=== PATIENT | female | born 1960 | race Caucasian/White ===

== ENCOUNTER 2020-11-25 19:28 | Inpatient (IN) | payer OTHER, SELFPAY ==
[2020-11-25] VITALS (9 sets, daily range): BP systolic 115–189; BP diastolic 83–105; PULSE 72–96; RESP 20–28; TEMP 36.1–36.7; O2SAT 97–100; BMI 22.8
--- NOTE | ~2020-11-25 | CT_ITS ---
EXAMINATION: UNENHANCED CT THE CHEST, ABDOMEN AND PELVIS. CLINICAL INFORMATION: Fall. Chest and flank pain. Nausea and vomiting. COMPARISON: CT abdomen pelvis 12/18/2017. TECHNIQUE: Unenhanced CT the chest, abdomen pelvis with multiple coronal and sagittal reformatted images. This CT examination was performed using dose optimization techniques as appropriate, variously including the following: *Automated exposure control *Adjustment of mA and/or kV according to patient size (this includes techniques or standardized protocols for targeted exams where dose is matched to indication/reason for exam; i.e. extremities or head) *Use of iterative reconstruction technique DLP: 1965 mGy-cm FINDINGS: CT chest: Lungs are clear. No pleural thickening or pleural fluid collections are visualized. The thoracic aorta is normal in caliber. Mild scattered aortic calcific atherosclerotic plaques are visualized. The main and central pulmonary arteries are normal in caliber. Partial visualization is made of at least moderate calcific atherosclerosis in the region of the proximal left anterior descending coronary artery. The heart size is normal. No pericardial thickening or fluid collections are visualized. No mediastinal lymphadenopathy. The thyroid is partially included in the image [id number] and demonstrates no gross abnormalities. Liver: Liver is normal in size, contour and capsular configuration. No focal parenchymal lesions of the liver noted. Cholecystectomy clips are identified. No biliary duct dilatation is visualized. Pancreas: Pancreas is normal in appearance. Spleen: Normal. Adrenal glands: Normal. Kidneys: No urolithiasis. No hydronephrosis or perinephric inflammatory changes. No focal parenchymal lesions of the kidneys. Urinary bladder: Physiologically distended. Gastrointestinal system: Moderate diverticulosis of the sigmoid colon and descending colon is identified. The appendix is normal in appearance. No free intraperitoneal fluid or gas collections are visualized. Scattered pelvic phleboliths are noted. A benign-appearing calcification is present in the region of the far left lateral omentum and descending colon which may represent a chronic focus of appendicitis epiploica. This finding is unchanged compared with 12/18/2017. Abdominal wall: No hernias: Pelvic viscera: Normal uterus. No adnexal lesions identified. Skeletal structures: Mildly displaced anterior fractures of the cannulated fractures of the anterior segments of the left fifth, sixth and seventh ribs are noted. No vertebral body compression deformities are visualized. CT/CT chest wo con IMPRESSION: CT chest, abdomen and pelvis: 1. Acute, mildly displaced angulated fractures of the anterior segments of the left fifth, sixth, seventh ribs. No pneumothoraces or pleural effusions. No additional acute abnormalities visualized. Normal spleen. No free intraperitoneal fluid or gas collections. 2. Moderate colonic diverticulosis. No evidence of acute diverticulitis. 3. Status post cholecystectomy. 4. Partially visualized calcific atherosclerosis of the proximal left anterior descending coronary artery.
--- NOTE | ~2020-11-25 | CT_ITS ---
EXAMINATION: CT HEAD WITHOUT CONTRAST CT CERVICAL SPINE WITHOUT CONTRAST CLINICAL INFORMATION: Fall COMPARISON: CT head dated 10/18/2011 TECHNIQUE: Multidetector CT imaging of the head and cervical spine was performed without the use of intravenous contrast. Multiplanar reformats are reviewed. This CT examination was performed using dose optimization techniques as appropriate, variously including the following: *Automated exposure control *Adjustment of mA and/or kV according to patient size (this includes techniques or standardized protocols for targeted exams where dose is matched to indication/reason for exam; i.e. extremities or head) *Use of iterative reconstruction technique DLP: 1965 mGy-cm. FINDINGS: There is no evidence of acute intracranial hemorrhage or territorial infarction. No abnormal mass effect or midline shift is seen. Woo to white matter differentiation is well preserved. No extra-axial fluid collections are identified. The ventricles are normal in size. Bilateral gangliocapsular lacunar infarcts and mild chronic small vessel ischemic changes. The osseous structures and soft tissues are normal. The mastoid air cells and visualized portions of the paranasal sinuses are well-aerated. Atlantooccipital alignment is maintained. The vertebral bodies and posterior elements align normally. No acute fracture or subluxation. Vertebral body heights are preserved. Small endplate osteophytes present along the anterior cervical spine from C4 through C7. The paraspinal soft tissues are unremarkable. The imaged lung apices are clear CT/CT cervical spine wo con IMPRESSION: No acute intracranial pathology. No cervical spine fracture or malalignment.
--- NOTE | ~2020-11-25 | CT_ITS ---
EXAMINATION: CT HEAD WITHOUT CONTRAST CT CERVICAL SPINE WITHOUT CONTRAST CLINICAL INFORMATION: Fall COMPARISON: CT head dated 10/18/2011 TECHNIQUE: Multidetector CT imaging of the head and cervical spine was performed without the use of intravenous contrast. Multiplanar reformats are reviewed. This CT examination was performed using dose optimization techniques as appropriate, variously including the following: *Automated exposure control *Adjustment of mA and/or kV according to patient size (this includes techniques or standardized protocols for targeted exams where dose is matched to indication/reason for exam; i.e. extremities or head) *Use of iterative reconstruction technique DLP: 1965 mGy-cm. FINDINGS: There is no evidence of acute intracranial hemorrhage or territorial infarction. No abnormal mass effect or midline shift is seen. Woo to white matter differentiation is well preserved. No extra-axial fluid collections are identified. The ventricles are normal in size. Bilateral gangliocapsular lacunar infarcts and mild chronic small vessel ischemic changes. The osseous structures and soft tissues are normal. The mastoid air cells and visualized portions of the paranasal sinuses are well-aerated. Atlantooccipital alignment is maintained. The vertebral bodies and posterior elements align normally. No acute fracture or subluxation. Vertebral body heights are preserved. Small endplate osteophytes present along the anterior cervical spine from C4 through C7. The paraspinal soft tissues are unremarkable. The imaged lung apices are clear CT/CT head/brain wo con IMPRESSION: No acute intracranial pathology. No cervical spine fracture or malalignment.
--- NOTE | ~2020-11-25 | CT_ITS ---
EXAMINATION: UNENHANCED CT THE CHEST, ABDOMEN AND PELVIS. CLINICAL INFORMATION: Fall. Chest and flank pain. Nausea and vomiting. COMPARISON: CT abdomen pelvis 12/18/2017. TECHNIQUE: Unenhanced CT the chest, abdomen pelvis with multiple coronal and sagittal reformatted images. This CT examination was performed using dose optimization techniques as appropriate, variously including the following: *Automated exposure control *Adjustment of mA and/or kV according to patient size (this includes techniques or standardized protocols for targeted exams where dose is matched to indication/reason for exam; i.e. extremities or head) *Use of iterative reconstruction technique DLP: 1965 mGy-cm FINDINGS: CT chest: Lungs are clear. No pleural thickening or pleural fluid collections are visualized. The thoracic aorta is normal in caliber. Mild scattered aortic calcific atherosclerotic plaques are visualized. The main and central pulmonary arteries are normal in caliber. Partial visualization is made of at least moderate calcific atherosclerosis in the region of the proximal left anterior descending coronary artery. The heart size is normal. No pericardial thickening or fluid collections are visualized. No mediastinal lymphadenopathy. The thyroid is partially included in the image [id number] and demonstrates no gross abnormalities. Liver: Liver is normal in size, contour and capsular configuration. No focal parenchymal lesions of the liver noted. Cholecystectomy clips are identified. No biliary duct dilatation is visualized. Pancreas: Pancreas is normal in appearance. Spleen: Normal. Adrenal glands: Normal. Kidneys: No urolithiasis. No hydronephrosis or perinephric inflammatory changes. No focal parenchymal lesions of the kidneys. Urinary bladder: Physiologically distended. Gastrointestinal system: Moderate diverticulosis of the sigmoid colon and descending colon is identified. The appendix is normal in appearance. No free intraperitoneal fluid or gas collections are visualized. Scattered pelvic phleboliths are noted. A benign-appearing calcification is present in the region of the far left lateral omentum and descending colon which may represent a chronic focus of appendicitis epiploica. This finding is unchanged compared with 12/18/2017. Abdominal wall: No hernias: Pelvic viscera: Normal uterus. No adnexal lesions identified. Skeletal structures: Mildly displaced anterior fractures of the cannulated fractures of the anterior segments of the left fifth, sixth and seventh ribs are noted. No vertebral body compression deformities are visualized. CT/CT abdomen pelvis wo con IMPRESSION: CT chest, abdomen and pelvis: 1. Acute, mildly displaced angulated fractures of the anterior segments of the left fifth, sixth, seventh ribs. No pneumothoraces or pleural effusions. No additional acute abnormalities visualized. Normal spleen. No free intraperitoneal fluid or gas collections. 2. Moderate colonic diverticulosis. No evidence of acute diverticulitis. 3. Status post cholecystectomy. 4. Partially visualized calcific atherosclerosis of the proximal left anterior descending coronary artery.
--- NOTE | 2020-11-25 19:53 | ECG_ITS ---
Test Reason : NAUSEA Blood Pressure : / mmHG Vent. Rate : 070 BPM Atrial Rate : 070 BPM P-R Int : 146 ms QRS Dur : 074 ms QT Int : 422 ms P-R-T Axes : 060 042 053 degrees QTc Int : 455 ms Normal sinus rhythm Normal ECG When compared with ECG of 07-APR-2012 04:56, No significant change was found Referred By: Luz Elena Aly Electronically Signed By:Miguel Corrales
--- NOTE | 2020-11-25 19:55 | ED_ITS ---
HPI - Nausea/Vomiting/Diarrhea General Chief complaint: Nausea/Vomiting/Diarrhea Stated complaint: vomiting high bp Time Seen by Provider: 11/25/20 19:56 Source: patient Mode of arrival: ambulatory Limitations: no limitations History of Present Illness HPI Narrative: 60-year-old female with past medical history of GERD, hypertension, hyperlipidemia, diabetes type 2, depression, and tobacco dependence presents with multiple complaints. She has had nausea, vomiting, diarrhea and abdominal pain that started earlier today. She has been unable to take her medications because of vomiting and hence has an elevated blood pressure. It is also noted that she fell on Saturday, tripped on her bed, hit her left side onto the floor and is reporting left-sided flank and left-sided chest and back pain. She does not report hitting her head however is not able to describe all the events surrounding her fall. She is in 10/10 pain, short of breath, and has difficulty ambulating because of the pain in her side and back. She did have a COVID vaccine on Saturday. She denies dizziness, lightheadedness, weakness, edema, palpitations, dysuria, hematuria, melena, hematochezia, hematemesis, and chills. MD elicited complaint: nausea, vomiting, diarrhea, abdominal pain, flank pain and other (Left-sided chest pain) Onset (ago): day(s) (1) Description of vomiting: watery and bilious Description of diarrhea: watery and semi-solid Associated nausea: Yes Associated abdominal pain: Yes Location of pain: diffuse and L flank Radiation: left flank and chest Pain consistency: constant Severity: severe Pain scale (0-10): 10 Quality: stabbing, aching and constant Exacerbating factors: vomiting, movement and exertion Relieving factors: none Associated symptoms: chest pain, fever/chills, loss of appetite, malaise, nausea/vomiting and shortness of breath Treatment prior to arrival: other OTC medicine Related Data Home Medications Medication Instructions Recorded Confirmed aspirin 1 tab PO DAILY 11/25/20 11/25/20 lisinopril 1 tab PO DAILY 11/25/20 11/25/20 omeprazole 1 cap PO DAILY 11/25/20 11/25/20 oxybutynin chloride 1 tab PO DAILY 11/25/20 11/25/20 Previous Rx's Medication Instructions Recorded cholecalciferol (vitamin D3) 25 25 mcg PO DAILY 90 Days #90 cap 08/07/20 mcg (1,000 unit) capsule levocetirizine 5 mg tablet 5 mg PO DAILY 30 Days #30 tab 10/26/20 baclofen 10 mg tablet 10 mg PO DAILY PRN 30 Days #30 tab 10/31/20 paroxetine HCl 30 mg tablet 30 mg PO DAILY #90 tab 11/02/20 Allergies Allergy/AdvReac Type Severity Reaction Status Date / Time oxycodone [OXYCODONE] Allergy Intermediate N/V, GI Unverified 06/02/20 15:44 PAIN acetaminophen [Percocet] AdvReac Unknown vomiting Verified 10/17/20 11:39 Review of Systems Review of Systems: Constitutional: Positive subjective fevers, positive fatigue, No Weight loss, No Chills, No Night Sweats, No Malaise ENT/Mouth: No Hearing loss, No Ear Pain, No Nasal Congestion, No Sinus Pain, No Hoarseness, No sore throat, No Rhinorrhea, No Swallowing Difficulty Eyes: No Eye Pain, No Swelling, No Redness, No Foreign Body, No Discharge, No Vision Changes Cardiovascular: Positive left-sided Chest Pain, positive SOB, no Dyspnea on Exertion, No Orthopnea, No Edema, No Palpitations Respiratory: No Cough, No Sputum, No Wheezing, No Smoke Exposure, No Dyspnea Gastrointestinal: Positive Nausea, positive Vomiting, positive Diarrhea, positive abdominal Pain, No Hematochezia, No Melena Genitourinary: No irregular bleeding, No Dysuria, No Urinary Frequency, No Hematuria, No Urinary Incontinence, No Urgency, No Flank Pain, No Urinary Flow Changes, No Hesitancy Musculoskeletal: Positive lower back pain, No Myalgias, No Joint Swelling Skin: No Skin Lesions, No rash Neuro: No Weakness, No Numbness, No Paresthesias, No Loss of Consciousness, No Dizziness, No Headache Psych: No Anxiety/Panic, No Depression, No SI/HI/AH/VH Heme/Lymph: No Bruising, No Bleeding,No Lymphadenopathy Endocrine: No Polyuria, No Polydipsia, No Temperature Intolerance Yes all other systems are reviewed and are negative Gastrointestinal: Gastrointestinal: Reports nausea PMFSH Past Medical History Attestation statement: The following information was validated with the patient. Source: old records reviewed Medical History Arthrosis Chronic GERD Depression, major, recurrent Diabetes 1.5, managed as type 2 Environmental allergies Hypertension, essential Lipid disorder Tobacco abuse Urinary incontinence in female Surgical History History of hysteroscopy History of open reduction and internal fixation (ORIF) procedure Hx of cholecystectomy Family History Family History Father History of heart attack HTN (hypertension) CVD (cardiovascular disease) Diabetes mellitus Mother Alzheimer's disease Sister Breast cancer Sister Lung cancer Uterine cancer Sister Colon cancer Social History Social History Alcohol intake: current Alcohol intake frequency: holidays/special occasions only Smoking Status: Light tobacco smoker Use of substances other than those prescribed or required for medical reasons: Yes Substance Use Type: Marijuana Advance Directives: No Advance Directives Information Provided: No Physical Exam Vital Signs: Vital Signs: Last Vital Signs Temp 98.0 F 11/25/20 22:33 Pulse 96 11/25/20 23:53 Resp 20 11/25/20 23:53 BP 115/83 11/25/20 23:53 Pulse Ox 97 11/25/20 23:53 Body Mass Index 22.8 Appearance: Alert. Oriented X3. Moderate distress. Eyes: Pupils equal, round and reactive to light. EOMI, sclera nonicteric ENT: Pharynx normal. Nares patent, oral mucosa dry Neck: Normal inspection. Neck supple. Trachea midline CVS: Normal heart rate and rhythm. Pulses normal. Significant chest wall tenderness on palpation greater on the left than the right. No bruising noted to the left lateral chest. Respiratory: No respiratory distress. Breath sounds normal. Abdomen: Soft and nontender. Skin: Skin warm and dry. Normal skin color. Normal skin turgor. Extremities: No lower extremity edema. Neuro: No motor deficit. No sensory deficit. Course Course Course Narrative: 60-year-old female with past medical history of GERD, hypert ension, hyperlipidemia, diabetes type 2, depression, and tobacco dependence presents with multiple complaints. She has had nausea, vomiting, diarrhea and abdominal pain that started earlier today. Will order CT scan of head, cervical spine, chest, abdomen and pelvis. She is unable to describe the events surrounding her fall, has 10/10 pain to minimal palpation to the chest wall, left upper left lower quadrant of the abdomen and CVA tenderness with palpation. Will rule out ACS, CVA, fracture, and acute abdomen. Troponin bumped at 72.9 CT scan of head, cervical spine and abdomen negative for acute findings, CT scan of the chest shows rib fractures from 3 through 5, which is consistent with patient's physical exam and her history of fall and landing on her left side into the bedpost. Will repeat troponin. Second troponin at 11:28 p.m. 120.5. Discussion with hospitalist for admission. Will discuss elevated tropes with cards. 1:10 a.m. discussion with Cardiology on-call, plan of care is to repeat 3rd troponin, and EKG at that time. If EKG shows any changes to start heparin. Th is was reported to hospitalist. Consultations Consultation #1: Kari Time: 23:30 Consultation #2: Antoni Time: 01:12 MDM - Nausea/Vomiting/Diarrhea MDM Narrative Medical decision making narrative: ACS, CVA, rib fracture, acute abdomen Differential Diagnosis Differential diagnosis: Likely gastroenteritis and dehydration Medical Records Attestation: I reviewed the patient's medical records. Lab Data Attestation: I reviewed the patient's lab results. Result diagrams: 11/25/20 20:00 11/25/20 20:00 Labs: Lab Results 11/25/20 11/25/20 11/25/20 Range/Units 20:00 20:00 20:00 WBC 14.4 H (4.8-10.8) X10*3/uL RBC 4.32 (4.20-5.50) X10*6/uL Hgb 13.3 (12.0-16.0) g/dl Hct 39.5 (37-47) % MCV 91.4 (80-98) fL MCH 30.8 (27.0-33.0) pg MCHC 33.7 (31.0-35.0) g/dl RDW 12.3 (11.0-16.0) % Plt Count 304 (160-400) X10*3/uL MPV 9.4 (9.4-12.3) fL Immature Gran % (Auto) 0.6 H (0.0-0.4) % Neut % (Auto) 91.1 H (45-73) % Lymph % (Auto) 5.5 L (20-40) % [place] % (Auto) 2.6 (2-11) % Eos % (Auto) 0.0 (0-4) % Baso % (Auto) 0.2 (0-2) % Lymph # (Auto) 0.8 L (1.2-4.9) X10*3/uL [place] # (Auto) 0.4 (0.1-1.2) X10*3/uL Eos # (Auto) 0.0 (0.0-0.4) X10*3/uL Baso # (Auto) 0.0 (0.0-0.2) X10*3/uL Abs Immat Gran (auto) 0.08 H (0.00-0.03) X10*3/uL Absolute Neuts (auto) 13.1 H (2.0-8.3) X10*3/uL Absolute Nucleated RBC 0.000 (0.0-0.012) X10*3/uL Nucleated RBC % (auto) 0.0 (0.0-0.2) /100WBC Smear Tech's Comments VERIFIED PT 11.5 (10.8-13.0) SEC INR 1.0 (0.9-1.1) APTT 29.5 (24.1-38.0) SEC Sodium 140 (135-145) mmol/L Potassium 3.5 (3.3-5.1) mmol/L Chloride 103 (96-108) mmol/L Carbon Dioxide 20 L (22-29) mmol/L Anion Gap 21 H (12-20) BUN 10 (9-16) mg/dL Creatinine 0.77 (0.5-1.4) mg/dL Estim Creat Clear Calc 77.4 Estimated GFR > 60 POC Glucose (60-115) mg/dL Random Glucose 181 H (60-115) mg/dL Calcium 9.8 (8.4-10.2) mg/dL Magnesium 1.6 (1.6-2.6) mg/dL Total Bilirubin 0.7 (0.0-1.0) mg/dL Direct Bilirubin 0.3 (0.0-0.5) mg/dL AST 23 (5-31) U/L ALT 26 (0-31) U/L Alkaline Phosphatase 126 H (39-117) U/L Troponin I High Sens (<3.5-17.0) ng/L Total Protein 8.0 (6.5-8.0) g/dL Albumin 5.0 (3.5-5.0) g/dL Lipase 30 (8-78) U/L Urine Color Urine Appearance Urine pH (5.0-8.0) Ur Specific [place] (1.005-1.025) Urine Protein (NEG-TRACE) MG/DL Urine Glucose (UA) (NEG) MG/DL Urine Ketones (NEG) MG/DL Urine Blood (NEG) Urine Nitrite (NEG) Ur Leukocyte Esterase (NEG) Urine RBC (0) /HPF Urine WBC (0-4) /HPF Ur Squamous Epith Cells /LPF Urine Bacteria /LPF Urine Mucus /LPF COVID-19 ([facility]) (Negative) COVID-19 Clin Com 11/25/20 11/25/20 11/25/20 Range/Units 20:00 20:18 20:36 WBC (4.8-10.8) X10*3/uL RBC (4.20-5.50) X10*6/uL Hgb (12.0-16.0) g/dl Hct (37-47) % MCV (80-98) fL MCH (27.0-33.0) pg MCHC (31.0-35.0) g/dl RDW (11.0-16.0) % Plt Count (160-400) X10*3/uL MPV (9.4-12.3) fL Immature Gran % (Auto) (0.0-0.4) % Neut % (Auto) (45-73) % Lymph % (Auto) (20-40) % [place] % (Auto) (2-11) % Eos % (Auto) (0-4) % Baso % (Auto) (0-2) % Lymph # (Auto) (1.2-4.9) X10*3/uL [place] # (Auto) (0.1-1.2) X10*3/uL Eos # (Auto) (0.0-0.4) X10*3/uL Baso # (Auto) (0.0-0.2) X10*3/uL Abs Immat Gran (auto) (0.00-0.03) X10*3/uL Absolute Neuts (auto) (2.0-8.3) X10*3/uL Absolute Nucleated RBC (0.0-0.012) X10*3/uL Nucleated RBC % (auto) (0.0-0.2) /100WBC Smear Tech's Comments PT (10.8-13.0) SEC INR (0.9-1.1) APTT (24.1-38.0) SEC Sodium (135-145) mmol/L Potassium (3.3-5.1) mmol/L Chloride (96-108) mmol/L Carbon Dioxide (22-29) mmol/L Anion Gap (12-20) BUN (9-16) mg/dL Creatinine (0.5-1.4) mg/dL Estim Creat Clear Calc Estimated GFR POC Glucose 164 H (60-115) mg/dL Random Glucose (60-115) mg/dL Calcium (8.4-10.2) mg/dL Magnesium (1.6-2.6) mg/dL Total Bilirubin (0.0-1.0) mg/dL Direct Bilirubin (0.0-0.5) mg/dL AST (5-31) U/L ALT (0-31) U/L Alkaline Phosphatase (39-117) U/L Troponin I High Sens 72.9 H (<3.5-17.0) ng/L Total Protein (6.5-8.0) g/dL Albumin (3.5-5.0) g/dL Lipase (8-78) U/L Urine Color Urine Appearance Urine pH (5.0-8.0) Ur Specific [place] (1.005-1.025) Urine Protein (NEG-TRACE) MG/DL Urine Glucose (UA) (NEG) MG/DL Urine Ketones (NEG) MG/DL Urine Blood (NEG) Urine Nitrite (NEG) Ur Leukocyte Esterase (NEG) Urine RBC (0) /HPF Urine WBC (0-4) /HPF Ur Squamous Epith Cells /LPF Urine Bacteria /LPF Urine Mucus /LPF COVID-19 ([facility]AS[facility]) Negative (Negative) COVID-19 Clin Com See Note 03/12/21 03/12/21 Range/Units 22:17 22:37 WBC (4.8-10.8) X10*3/uL RBC (4.20-5.50) X10*6/uL Hgb (12.0-16.0) g/dl Hct (37-47) % MCV (80-98) fL MCH (27.0-33.0) pg MCHC (31.0-35.0) g/dl RDW (11.0-16.0) % Plt Count (160-400) X10*3/uL MPV (9.4-12.3) fL Immature Gran % (Auto) (0.0-0.4) % Neut % (Auto) (45-73) % Lymph % (Auto) (20-40) % [place] % (Auto) (2-11) % Eos % (Auto) (0-4) % Baso % (Auto) (0-2) % Lymph # (Auto) (1.2-4.9) X10*3/uL [place] # (Auto) (0.1-1.2) X10*3/uL Eos # (Auto) (0.0-0.4) X10*3/uL Baso # (Auto) (0.0-0.2) X10*3/uL Abs Immat Gran (auto) (0.00-0.03) X10*3/uL Absolute Neuts (auto) (2.0-8.3) X10*3/uL Absolute Nucleated RBC (0.0-0.012) X10*3/uL Nucleated RBC % (auto) (0.0-0.2) /100WBC Smear Tech's Comments PT (10.8-13.0) SEC INR (0.9-1.1) APTT (24.1-38.0) SEC Sodium (135-145) mmol/L Potassium (3.3-5.1) mmol/L Chloride (96-108) mmol/L Carbon Dioxide (22-29) mmol/L Anion Gap (12-20) BUN (9-16) mg/dL Creatinine (0.5-1.4) mg/dL Estim Creat Clear Calc Estimated GFR POC Glucose (60-115) mg/dL Random Glucose (60-115) mg/dL Calcium (8.4-10.2) mg/dL Magnesium (1.6-2.6) mg/dL Total Bilirubin (0.0-1.0) mg/dL Direct Bilirubin (0.0-0.5) mg/dL AST (5-31) U/L ALT (0-31) U/L Alkaline Phosphatase (39-117) U/L Troponin I High Sens 120.5 H D (<3.5-17.0) ng/L Total Protein (6.5-8.0) g/dL Albumin (3.5-5.0) g/dL Lipase (8-78) U/L Urine Color STRAW Urine Appearance CLEAR Urine pH 7.0 (5.0-8.0) Ur Specific [place] 1.025 (1.005-1.025) Urine Protein 2+ H (NEG-TRACE) MG/DL Urine Glucose (UA) 250 H (NEG) MG/DL Urine Ketones 15 (NEG) MG/DL Urine Blood 2+ H (NEG) Urine Nitrite NEG (NEG) Ur Leukocyte Esterase NEG (NEG) Urine RBC 15-29 H (0) /HPF Urine WBC 0-2 (0-4) /HPF Ur Squamous Epith Cells TRACE /LPF Urine Bacteria NONE /LPF Urine Mucus TRACE /LPF COVID-19 ([facility]) (Negative) COVID-19 Clin Com Imaging Data CT head, neck, chest, abdomen and pelvis: Attestation: I personally reviewed and interpreted this imaging study as follows: Radiologist's impression: EXAMINATION: CT HEAD WITHOUT CONTRAST CT CERVICAL SPINE WITHOUT CONTRAST CLINICAL INFORMATION: Fall COMPARISON: CT head dated 10/18/2011 TECHNIQUE: Multidetector CT imaging of the head and cervical spine was performed without the use of intravenous contrast. Multiplanar reformats are reviewed. This CT examination was performed using dose optimization techniques as appropriate, variously including the following: *Automated exposure control *Adjustment of mA and/or kV according to patient size (this includes techniques or standardized protocols for targeted exams where dose is matched to indication/reason for exam; i.e. extremities or head) *Use of iterative reconstruction technique DLP: 1965 mGy-cm. FINDINGS: There is no evidence of acute intracranial hemorrhage or territorial infarction. No abnormal mass effect or midline shift is seen. Woo to white matter differentiation is well preserved. No extra-axial fluid collections are identified. The ventricles are normal in size. Bilateral gangliocapsular lacunar infarcts and mild chronic small vessel ischemic changes. The osseous structures and soft tissues are normal. The mastoid air cells and visualized portions of the paranasal sinuses are well-aerated. Atlantooccipital alignment is maintained. The vertebral bodies and posterior elements align normally. No acute fracture or subluxation. Vertebral body heights are preserved. Small endplate osteophytes present along the anterior cervical spine from C4 through C7. The paraspinal soft tissues are unremarkable. The imaged lung apices are clear CT/CT head/brain wo con IMPRESSION: No acute intracranial pathology. No cervical spine fracture or malalignment. EXAMINATION: UNENHANCED CT THE CHEST, ABDOMEN AND PELVIS. CLINICAL INFORMATION: Fall. Chest and flank pain. Nausea and vomiting. COMPARISON: CT abdomen pelvis 12/18/2017. TECHNIQUE: Unenhanced CT the chest, abdomen pelvis with multiple coronal and sagittal reformatted images. This CT examination was performed using dose optimization techniques as appropriate, variously including the following: *Automated exposure control *Adjustment of mA and/or kV according to patient size (this includes techniques or standardized protocols for targeted exams where dose is matched to indication/reason for exam; i.e. extremities or head) *Use of iterative reconstruction technique DLP: 1965 mGy-cm FINDINGS: CT chest: Lungs are clear. No pleural thickening or pleural fluid collections are visualized. The thoracic aorta is normal in caliber. Mild scattered aortic calcific atherosclerotic plaques are visualized. The main and central pulmonary arteries are normal in caliber. Partial visualization is made of at least moderate calcific atherosclerosis in the region of the proximal left anterior descending coronary artery. The heart size is normal. No pericardial thickening or fluid collections are visualized. No mediastinal lymphadenopathy. The thyroid is partially included in the image [id number] and demonstrates no gross abnormalities. Liver: Liver is normal in size, contour and capsular configuration. No focal parenchymal lesions of the liver noted. Cholecystectomy clips are identified. No biliary duct dilatation is visualized. Pancreas: Pancreas is normal in appearance. Spleen: Normal. Adrenal glands: Normal. Kidneys: No urolithiasis. No hydronephrosis or perinephric inflammatory changes. No focal parenchymal lesions of the kidneys. Urinary bladder: Physiologically distended. Gastrointestinal system: Moderate diverticulosis of the sigmoid colon and descending colon is identified. The appendix is normal in appearance. No free intraperitoneal fluid or gas collections are visualized. Scattered pelvic phleboliths are noted. A benign-appearing calcification is present in the region of the far left lateral omentum and descending colon which may represent a chronic focus of appendicitis epiploica. This finding is unchanged compared with 12/18/2017. Abdominal wall: No hernias: Pelvic viscera: Normal uterus. No adnexal lesions identified. Skeletal structures: Mildly displaced anterior fractures of the cannulated fractures of the anterior segments of the left fifth, sixth and seventh ribs are noted. No vertebral body compression deformities are visualized. CT/CT chest wo con IMPRESSION: CT chest, abdomen and pelvis: 1. Acute, mildly displaced angulated fractures of the anterior segments of the left fifth, sixth, seventh ribs. No pneumothoraces or pleural effusions. No additional acute abnormalities visualized. Normal spleen. No free intraperitoneal fluid or gas collections. 2. Moderate colonic diverticulosis. No evidence of acute diverticulitis. 3. Status post cholecystectomy. 4. Partially visualized calcific atherosclerosis of the proximal left anterior descending coronary artery. ECG Data Attestation: I personally reviewed and interpreted this ECG as follows: ECG interpretation date: 11/25/20 ECG interpretation time: 20:09 Interpretation: Vent. rate 70 BPM CO interval 146 ms QRS EKG 2. duration 74 ms QT/QTc 422/455 ms P-R-T axes 60 42 53 Normal sinus rhythm Normal ECG When compared with ECG of 07-APR-2012 04:56, No significant change was found EKG 2. Date 11/25/2020 time 11:50 p.m. Vent. rate 85 BPM CO interval 140 ms QRS duration 70 ms QT/QTc 384/456 ms P-R-T axes 67 28 56 Normal sinus rhythm Nonspecific ST abnormality Abnormal ECG When compared with ECG of 25-NOV-2020 20:09, No significant change was found Critical Care Time Critical Care Time Critical Care Time: Yes Total Critical Care Time: 45 Attestation: I have personally provided critical care time exclusive of time spent on sepa rately billable procedures. Time includes review of laboratory data, radiology results, discussion with consultants, and monitoring for potential decompensation. Interventions were performed as documented. Discharge Plan Discharge Clinical Impression: Elevated troponin level not due myocardial infarction, Hypertension, essential Ribs, multiple fractures Qualifiers: Encounter type: initial encounter Fracture type: closed Laterality: left Qualified Code(s): S22.42XA - Multiple fractures of ribs, left side, initial encounter for closed fracture Patient Disposition: Admitted As Inpatient
[2020-11-25] MEDS: ondansetron HCL 4 MG/2 ML VIAL IVPUSH (20:08)
[2020-11-25] MEDS: Morphine Sulfate 4 MG/ML CARTRIDGE IVPUSH ×2 (20:08→22:27)
[2020-11-25] MEDS: 0.9 % Sodium Chloride 1,000 ML 999 ML IVCONT (20:08)
[2020-11-25 20:20] LABS: Prothrombin Time 11.5 SEC (10.8-13.0)
[2020-11-25 20:21] LABS: Basophils Percent Auto 0.2 % (0-2); Hematocrit 39.5 % (37-47); Hemoglobin 13.3 g/dl (12.0-16.0); Imm Gran Abs Auto 0.08 X10*3/uL (0.00-0.03); Imm Gran Pct Auto 0.6 % (0.0-0.4); Lymphocytes Absolute Auto 0.8 X10*3/uL (1.2-4.9); Lymphocytes Percent Auto 5.5 % (20-40); MANUAL DIFF FLAG SCAN; Mean Corpuscular HGB Conc 33.7 g/dl (31.0-35.0); Mean Corpuscular Hemoglobin 30.8 pg (27.0-33.0); Mean Corpuscular Volume 91.4 fL (80-98); Mean Platelet Volume 9.4 fL (9.4-12.3); Monocytes Absolute Auto 0.4 X10*3/uL (0.1-1.2); Monocytes Percent Auto 2.6 % (2-11); Neutrophils Absolute Auto 13.1 X10*3/uL (2.0-8.3); Neutrophils Percent Auto 91.1 % (45-73); Platelet Count 304 X10*3/uL (160-400); Red Blood Count 4.32 X10*6/uL (4.20-5.50); Red Cell Distribution Width 12.3 % (11.0-16.0); SCAN SMEAR FLAG 1; White Blood Count 14.4 X10*3/uL (4.8-10.8)
[2020-11-25 20:22] LABS: Partial Thromboplastin Time 29.5 SEC (24.1-38.0)
[2020-11-25 20:55] LABS: Alanine Aminotransferase 26 U/L (0-31); Alkaline Phosphatase 126 U/L (39-117); Anion Gap 21 (12-20); Aspartate Amino Transferase 23 U/L (5-31); Bilirubin Direct 0.3 mg/dL (0.0-0.5); Bilirubin Total 0.7 mg/dL (0.0-1.0); Blood Urea Nitrogen 10 mg/dL (9-16); Calcium 9.8 mg/dL (8.4-10.2); Carbon Dioxide 20 mmol/L (22-29); Chloride 103 mmol/L (96-108); Creatinine Clr Calc Pharmacy 77.4; Estimated Glomerular Filt Rate > 60; Glucose Random 181 mg/dL (60-115); Lipase 30 U/L (8-78); Magnesium 1.6 mg/dL (1.6-2.6); Potassium 3.5 mmol/L (3.3-5.1); Sodium 140 mmol/L (135-145)
[2020-11-25 21:00] LABS: Troponin-I High Sensitivity 72.9 ng/L (<3.5-17.0)
[2020-11-25 21:02] LABS: SLIDE REVIEW VERIFIED
[2020-11-25 21:04] LABS: COVID-19 Test Negative (Negative); IDNOW Serial# 9DD0AD1C
[2020-11-25 21:30] LABS: Glucose, Whole Blood 164 mg/dL (60-115)
[2020-11-25 22:28] LABS: Glucose Urine UA 250 MG/DL (NEG); Leukocyte Esterase Urine NEG (NEG); Nitrite Urine NEG (NEG); Specific Gravity - Urine 1.025 (1.005-1.025); Urine Blood 2+ (NEG); Urine Ketones 15 MG/DL (NEG); Urine Protein 2+ MG/DL (NEG-TRACE)
[2020-11-25 22:30] LABS: Appearance Urine CLEAR; Color Urine STRAW
--- NOTE | 2020-11-25 22:37 | PC.NURSE ---
Pt up to use bathroom, ambulates w/ 1 assist, c/o increasing L flank/rib pain- medicated per emar. Daughter at bedside, both aware and agreeable to plan of care for admission. Tech at bedside to redraw trop. Pt remains HTN- provider aware.
[2020-11-25 22:47] LABS: Mucus Urine TRACE /LPF; Squamous Epithelial Cell Urine TRACE /LPF; WBC Urine 0-2 /HPF (0-4)
--- NOTE | 2020-11-25 23:08 | PC.NURSE ---
Report taken from Kanika, this RN resuming care. Per Kanika, plan for admission. Pt found resting in bed with daughter at bedside awaiting room assignment. Repeat Troponin pending. Call forrester within reach, continue to monitor.
[2020-11-25 23:28] LABS: Troponin-I High Sensitivity 120.5 ng/L (<3.5-17.0)
--- NOTE | 2020-11-25 23:34 | PC.NURSE ---
Garry Devlin t be called with updates, . at bedside for primary eval.
--- NOTE | 2020-11-25 23:47 | ECG_ITS ---
Test Reason : REPEAT Blood Pressure : / mmHG Vent. Rate : 085 BPM Atrial Rate : 085 BPM P-R Int : 140 ms QRS Dur : 070 ms QT Int : 384 ms P-R-T Axes : 067 028 056 degrees QTc Int : 456 ms Normal sinus rhythm Nonspecific ST abnormality Abnormal ECG When compared with ECG of 25-NOV-2020 20:09, No significant change was found Referred By: Luz Elena Aly Electronically Signed By:Miguel Corrales
--- NOTE | 2020-11-25 23:54 | PC.NURSE ---
This RN and scanning tech at bedside for repeat EKG. Pt reporting pain to left side of ribs, denies other complaints including CP/SOB. VSS at this time, pt aware of plan to await bed assignment. Continue to monitor.
--- NOTE | 2020-11-25 23:56 | PM.IMHP ---
History of Present Illness Date of Service: 11/25/20 Chief Complaint: fall and chest pain This is a 60-year-old female with past medical history of diabetes, hypertension, LDH, urinary incontinence, depression, GERD, osteoarthritis who presents to the hospital after a mechanical fall followed by severe chest pain. Patient reports that she tripped on a carpet in her house, and immediately after developed pain in the left chest, pain is worse with deep inspiration, she had difficulty breathing as a result, the pain felt like she could not take a deep breath. She has been doing well prior to that otherwise. She denies any headache, change in vision, no head trauma, no dizziness or palpitations, no loss of consciousness, no nausea or vomiting, diarrhea constipation. No abdominal pain, no urinary symptoms and no lower extremity edema. This pain is 10/10, nonradiating, constant, heavy in sensation. Worse with deep inspiration, improved with pain medications seated in the ED On arrival to the ED patient vitals are significant for temp of 97.0?, pulse rate of 74, respiratory rate of 20, blood pressure 163/95 satting 100% on room air Labs are significant for WBC count of 14.4, alk-phos of 126, troponin of 75 on repeat of 120, UA that is positive for blood and RBC was no evidence of infection, head CT reviewed shows no intracranial pathology, cervical spine shows no fracture or misalignment, chest CT showsMild displaced angulated fractures of the anterior segments of the left 5th 6th and 7th ribs with no pneumothorax or pleural effusion. EKG shows sinus rhythm with no ST T wave abnormalities Past medical history as below on confirm with patient Review of Systems Review of Systems: Yes all other systems are reviewed and are negative [facility] Medical History Arthrosis Chronic GERD Depression, major, recurrent Diabetes 1.5, managed as type 2 Environmental allergies Hypertension, essential Lipid disorder Tobacco abuse Urinary incontinence in female Family History Father History of heart attack HTN (hypertension) CVD (cardiovascular disease) Diabetes mellitus Mother Alzheimer's disease Sister Breast cancer Sister Lung cancer Uterine cancer Sister Colon cancer Surgical History History of hysteroscopy History of open reduction and internal fixation (ORIF) procedure Hx of cholecystectomy Social History Household Members: Children Housing: Apartment Do you presently have visiting nurse or other home services: Yes Alcohol intake: current Alcohol intake frequency: holidays/special occasions only Smoking Status: Current every day smoker Tobacco Type: Cigarette Cigarettes Per Day: 5 Years Smoked: 45 Smoked in Last 30 Days: Yes Patient Interested in Nicotine Replacement: No Use of substances other than those prescribed or required for medical reasons: No Substance Use Type: Marijuana Have you been hit, kicked, punched, or otherwise hurt by someone within the past year? If so, by whom?: No Do you feel safe in your current relationship?: No Current Relationship Is there a partner from a previous relationship who is making you feel unsafe now?: No Are you made to feel afraid or neglected: No Advance Directives: No Advance Directives Information Provided: No Do you have thoughts of harming others: None Do you have a plan to hurt others: No Plan Recently lost weight without trying: Unsure Meds Allergies Allergy/AdvReac Type Severity Reaction Status Date / Time oxycodone [OXYCODONE] Allergy Intermediate N/V, GI Unverified 06/02/20 15:44 PAIN acetaminophen [Percocet] AdvReac Unknown vomiting Verified 10/17/20 11:39 Home Medications Medication Instructions Recorded Confirmed Last Taken Type aspirin 1 tab PO DAILY 11/25/20 11/25/20 11/25/20 08:00 History lisinopril 1 tab PO DAILY 11/25/20 11/25/20 11/25/20 18:46 History omeprazole 1 cap PO DAILY 11/25/20 11/25/20 11/24/20 21:00 History oxybutynin chloride 1 tab PO DAILY 11/25/20 11/25/20 11/25/20 08:00 History Physical Exam Vital Signs and Narrative: Vital Signs: Last Vital Signs Temp 98.0 F 11/25/20 22:33 Pulse 96 11/25/20 23:53 Resp 20 11/25/20 23:53 BP 115/83 11/25/20 23:53 Pulse Ox 97 11/25/20 23:53 Body Mass Index 22.8 Const: General: cooperative and no acute distress Orientation/consciousness: patient oriented x3 Eyes: General: appearance normal, both eyes and all related structures Resp: Effort & Inspection: normal respiratory effort and able to speak in complete sentences Cardio: Rate: regular rate Rhythm: regular rhythm GI: Palpation (GI): Soft to palpation Auscultation: normal bowel sounds Skin: General skin exam: no rashes or lesions noted Neuro: General: patient oriented x3 Cognition (Neuro): normal cognition Extrem: General: Yes normal to inspection and Yes no pedal edema Results Labs CBC and Chem 7: 11/25/20 20:00 11/25/20 20:00 Labs: Laboratory Results - last 24 hr 11/25/20 11/25/20 11/25/20 20:00 20:00 20:00 MCV 91.4 MCH 30.8 MCHC 33.7 RDW 12.3 Plt Count 304 MPV 9.4 Immature Gran % (Auto) 0.6 H Neut % (Auto) 91.1 H Lymph % (Auto) 5.5 L [place] % (Auto) 2.6 Eos % (Auto) 0.0 Baso % (Auto) 0.2 Lymph # (Auto) 0.8 L [place] # (Auto) 0.4 Eos # (Auto) 0.0 Baso # (Auto) 0.0 Abs Immat Gran (auto) 0.08 H Absolute Neuts (auto) 13.1 H Absolute Nucleated RBC 0.000 Nucleated RBC % (auto) 0.0 Smear Tech's Comments VERIFIED PT 11.5 INR 1.0 APTT 29.5 Anion Gap 21 H Estim Creat Clear Calc 77.4 Estimated GFR > 60 POC Glucose Random Glucose 181 H Calcium 9.8 Magnesium 1.6 Total Bilirubin 0.7 Direct Bilirubin 0.3 AST 23 ALT 26 Alkaline Phosphatase 126 H Troponin I High Sens Total Protein 8.0 Albumin 5.0 Lipase 30 Urine Color Urine Appearance Urine pH Ur Specific [place] Urine Protein Urine Glucose (UA) Urine Ketones Urine Blood Urine Nitrite Ur Leukocyte Esterase Urine RBC Urine WBC Ur Squamous Epith Cells Urine Bacteria Urine Mucus COVID-19 (JASMIN) COVID-19 Clin Com 11/25/20 11/25/20 11/25/20 20:00 20:18 20:36 MCV MCH MCHC RDW Plt Count MPV Immature Gran % (Auto) Neut % (Auto) Lymph % (Auto) [place] % (Auto) Eos % (Auto) Baso % (Auto) Lymph # (Auto) [place] # (Auto) Eos # (Auto) Baso # (Auto) Abs Immat Gran (auto) Absolute Neuts (auto) Absolute Nucleated RBC Nucleated RBC % (auto) Smear Tech's Comments PT INR APTT Anion Gap Estim Creat Clear Calc Estimated GFR POC Glucose 164 H Random Glucose Calcium Magnesium Total Bilirubin Direct Bilirubin AST ALT Alkaline Phosphatase Troponin I High Sens 72.9 H Total Protein Albumin Lipase Urine Color Urine Appearance Urine pH Ur Specific [place] Urine Protein Urine Glucose (UA) Urine Ketones Urine Blood Urine Nitrite Ur Leukocyte Esterase Urine RBC Urine WBC Ur Squamous Epith Cells Urine Bacteria Urine Mucus COVID-19 (JASMIN) Negative COVID-19 Clin Com See Note 11/25/20 11/25/20 22:17 22:37 MCV MCH MCHC RDW Plt Count MPV Immature Gran % (Auto) Neut % (Auto) Lymph % (Auto) [place] % (Auto) Eos % (Auto) Baso % (Auto) Lymph # (Auto) [place] # (Auto) Eos # (Auto) Baso # (Auto) Abs Immat Gran (auto) Absolute Neuts (auto) Absolute Nucleated RBC Nucleated RBC % (auto) Smear Tech's Comments PT INR APTT Anion Gap Estim Creat Clear Calc Estimated GFR POC Glucose Random Glucose Calcium Magnesium Total Bilirubin Direct Bilirubin AST ALT Alkaline Phosphatase Troponin I High Sens 120.5 H D Total Protein Albumin Lipase Urine Color STRAW Urine Appearance CLEAR Urine pH 7.0 Ur Specific [place] 1.025 Urine Protein 2+ H Urine Glucose (UA) 250 H Urine Ketones 15 Urine Blood 2+ H Urine Nitrite NEG Ur Leukocyte Esterase NEG Urine RBC 15-29 H Urine WBC 0-2 Ur Squamous Epith Cells TRACE Urine Bacteria NONE Urine Mucus TRACE COVID-19 (JASMIN) COVID-19 Clin Com Imaging Radiologist's Impressions: Impressions Abdomen/Pelvis CT 11/25/20 19:51 IMPRESSION: CT chest, abdomen and pelvis: 1. Acute, mildly displaced angulated fractures of the anterior segments of the left fifth, sixth, seventh ribs. No pneumothoraces or pleural effusions. No additional acute abnormalities visualized. Normal spleen. No free intraperitoneal fluid or gas collections. 2. Moderate colonic diverticulosis. No evidence of acute diverticulitis. 3. Status post cholecystectomy. 4. Partially visualized calcific atherosclerosis of the proximal left anterior descending coronary artery. Cervical Spine CT 11/25/20 19:51 IMPRESSION: No acute intracranial pathology. No cervical spine fracture or malalignment. Chest CT 11/25/20 19:51 IMPRESSION: CT chest, abdomen and pelvis: 1. Acute, mildly displaced angulated fractures of the anterior segments of the left fifth, sixth, seventh ribs. No pneumothoraces or pleural effusions. No additional acute abnormalities visualized. Normal spleen. No free intraperitoneal fluid or gas collections. 2. Moderate colonic diverticulosis. No evidence of acute diverticulitis. 3. Status post cholecystectomy. 4. Partially visualized calcific atherosclerosis of the proximal left anterior descending coronary artery. Head CT 11/25/20 19:51 IMPRESSION: No acute intracranial pathology. No cervical spine fracture or malalignment. Assessment and Plan (1) Ribs, multiple fractures: Qualifiers: Encounter type: initial encounter Fracture type: closed Laterality: left Qualified Code(s): S22.42XA - Multiple fractures of ribs, left side, initial encounter for closed fracture Status: Acute (2) Elevated troponin level not due myocardial infarction: Status: Acute (3) Diabetes 1.5, managed as type 2: Status: Acute (4) Fall: Status: Acute This is a 60-year-old female who presents to the hospital after a mechanical fall found to have multiple rib fractures admitted for intractable pain, patient also found to have elevated troponin with no EKG changes # multiple rib fractures - after a mechanical fall - has 3 fractures of the 5th 6 and 7th left ribs - has difficulty breathing, and pain is uncontrolled with IV medications - will admit her for pain control with p.o. pain medications at this time - incentive spirometry # elevated troponin - no EKG changes, denies any chest pain - has no history of coronary artery disease but has history of hypertension and diabetes - will consult Cardiology # fall - appears to be mechanical - no presyncopal symptoms, no loss of consciousness # diabetes - will place her on low-dose sliding scale insulin - diabetic diet # hypertension - stable - continue home medications # chronic GERD - continue omeprazole # urinary incontinence - continue oxybutynin DVT prophylaxis: Heparin subQ
[2020-11-26] VITALS (11 sets, daily range): BP systolic 104–160; BP diastolic 59–78; PULSE 65–83; RESP 14–22; TEMP 36.2–37.1; O2SAT 94–98
[2020-11-26] MEDS: 0.9 % Sodium Chloride Flush 3 ML SYRINGE IVFLUSH ×4 (00:10→23:45)
[2020-11-26] MEDS: Heparin Sodium,Porcine 5,000 UNIT/ML VIAL 5000 UNIT SUBCUT ×3 (00:10→23:40)
--- NOTE | 2020-11-26 01:03 | PC.NURSE ---
Hospitalist consulted regarding bed on M/S due to 2 elevated Troponins. Per Hospitalist, plan to switch to [facility].
[2020-11-26] MEDS: Morphine Sulfate 4 MG/ML CARTRIDGE IVPUSH ×5 (02:20→23:38)
--- NOTE | 2020-11-26 02:23 | PC.NURSE ---
Report given to RN. Repeat EKG and Troponin obtained and sent per order. Pt reporting 10/10 pain, medicated with Morphine for discomfort. VSS at this time. Pt being prepared for transport to floor.
--- NOTE | 2020-11-26 02:30 | ECG_ITS ---
Test Reason : ELEVATED TROPONIN Blood Pressure : / mmHG Vent. Rate : 071 BPM Atrial Rate : 071 BPM P-R Int : 140 ms QRS Dur : 066 ms QT Int : 414 ms P-R-T Axes : 060 034 062 degrees QTc Int : 449 ms Normal sinus rhythm Normal ECG When compared with ECG of 25-NOV-2020 23:50, No significant change was found Referred By: Cecily Pierce Electronically Signed By:Miguel Corrales
[2020-11-26 03:04] LABS: Troponin-I High Sensitivity 123.1 ng/L (<3.5-17.0)
[2020-11-26 06:58] LABS: MANUAL DIFF FLAG NO
[2020-11-26 07:02] LABS: Basophils Percent Auto 0.2 % (0-2); Eosinophils Percent Auto 0.2 % (0-4); Hematocrit 34.6 % (37-47); Hemoglobin 11.5 g/dl (12.0-16.0); Imm Gran Abs Auto 0.04 X10*3/uL (0.00-0.03); Imm Gran Pct Auto 0.4 % (0.0-0.4); Lymphocytes Absolute Auto 1.8 X10*3/uL (1.2-4.9); Mean Corpuscular HGB Conc 33.2 g/dl (31.0-35.0); Mean Corpuscular Hemoglobin 31.2 pg (27.0-33.0); Mean Corpuscular Volume 93.8 fL (80-98); Mean Platelet Volume 9.3 fL (9.4-12.3); Monocytes Absolute Auto 0.9 X10*3/uL (0.1-1.2); Monocytes Percent Auto 7.9 % (2-11); Neutrophils Percent Auto 74.3 % (45-73); Platelet Count 267 X10*3/uL (160-400); Red Blood Count 3.69 X10*6/uL (4.20-5.50); Red Cell Distribution Width 12.6 % (11.0-16.0); White Blood Count 10.7 X10*3/uL (4.8-10.8)
[2020-11-26 07:48] LABS: Anion Gap 15 (12-20); Blood Urea Nitrogen 13 mg/dL (9-16); Calcium 8.8 mg/dL (8.4-10.2); Carbon Dioxide 22 mmol/L (22-29); Chloride 105 mmol/L (96-108); Creatinine Clr Calc Pharmacy 70.9; Estimated Glomerular Filt Rate > 60; Glucose Random 114 mg/dL (60-115); Potassium 3.6 mmol/L (3.3-5.1); Sodium 138 mmol/L (135-145)
[2020-11-26 08:45] LABS: Glucose, Whole Blood 128 mg/dL (60-115)
[2020-11-26] MEDS: Acetaminophen 325 MG TABLET 650 MG PO ×2 (09:39→16:52)
[2020-11-26] MEDS: Aspirin Enteric Coated 81 MG TABLET.DR PO (09:40)
[2020-11-26] MEDS: PARoxetine HCL 30 MG TABLET PO (09:40)
[2020-11-26] MEDS: Cholecalciferol (Vitamin D3) 25 MCG TABLET PO (09:40)
[2020-11-26] MEDS: lisinopriL 20 MG TABLET PO (09:40)
[2020-11-26] MEDS: Omeprazole 20 MG CAPSULE.DR PO (09:40)
--- NOTE | 2020-11-26 11:04 | MHC.CM.PN ---
PATIENT LIVES ALONE. SHE RELIES ON A CANE FOR AMBULATION. HER DAUGHTER,DWAINE, IS HER HEAD [employer]. DWAINE PROVIDES TRANSPORTATION WELL. PATIENT RECEIVES DAILY PHONE CALLS FROM [facility] RN, AND VISITS Q3M. SHE IS HOPING TO RETURN HOME WITH NO NEED FOR SERVICES. CASE MANAGEMENT FOLLOWING FOR DC NEEDS. IMM 11/26 IN CHART.
[2020-11-26 11:23] LABS: Glucose, Whole Blood 125 mg/dL (60-115)
--- NOTE | 2020-11-26 13:16 | HO.PM.IMPN ---
Subjective Subjective Date of Service: 11/26/20 Interval History: Patient complaining of left-sided chest discomfort worse with deep breathing and coughing and movement, denies associated shortness of breath diaphoresis lightheadedness or dizziness patient had a mechanical fall this morning states she fell on left side and subsequent to that developed severe chest pain worse with inspiration. General no headache, no dizziness no fever chills. CVS chest pain left-sided with deep breathing and coughing, no palpitation. Respiratory no cough, no shortness of breath Gastrointestinal no nausea, no vomiting, no abdominal pain Physical Exam Vital Signs: Vital Signs: Last Vital Signs Temp 98.3 F 11/26/20 12:00 Pulse 83 11/26/20 12:00 Resp 18 11/26/20 12:06 BP 125/61 11/26/20 12:00 Pulse Ox 96 11/26/20 12:00 Body Mass Index 22.8 General no acute distress. Neck supple no JVD. CVS regular rate rhythm, Respiratory lungs clear to auscultation, limiting deep inspiration due to pain, no respiratory distress, no wheeze, no rhonchi. Gastrointestinal abdomen soft, nontender, bowel sounds audible, no guarding , no rigidity. Extremities no edema. Neuro nonfocal, speech clear. Objective Data Current Medications Generic Name Dose Route Start Last Admin Trade Name Freq PRN Reason Stop Dose Admin Acetaminophen 650 mg 11/26/20 08:46 11/26/20 09:39 Acetaminophen 325 Mg Tablet PO 650 mg Q6H PRN Administration PAIN Aspirin 81 mg 11/26/20 09:00 11/26/20 09:40 Aspirin Enteric Coated 81 Mg Tablet.Dr PO 81 mg DAILY [facility] Administration Baclofen 10 mg 11/26/20 00:04 Baclofen 10 Mg Tablet PO DAILY PRN muscle spasm Docusate Sodium 100 mg 11/26/20 00:04 Docusate Sodium 100 Mg Capsule PO DAILY PRN Constipation Heparin Sodium (Porcine) 5,000 unit 11/26/20 00:04 11/26/20 12:06 Heparin Sodium,Porcine 5,000 Unit/Ml Vial SUBCUT 5,000 unit Q12H [facility] Administration Insulin Human Lispro 0 unit 11/26/20 07:30 11/26/20 11:16 Insulin Lispro 100 Unit/Ml 3 Ml Vial SUBCUT Not Given QIDACHS [facility] Protocol Lisinopril 20 mg 11/26/20 09:00 11/26/20 09:40 Lisinopril 20 Mg Tablet PO 20 mg DAILY [facility] Administration Protocol Morphine Sulfate 4 mg 11/26/20 00:04 11/26/20 12:06 Morphine Sulfate 4 Mg/Ml Cartridge IVPUSH 4 mg Q4H PRN Administration Pain, Severe (Pain Scale 7-10) Non-Formulary Medication 5 mg 11/26/20 09:00 Levocetirizine PO DAILY [facility] Omeprazole 20 mg 11/26/20 09:00 11/26/20 09:40 Omeprazole 20 Mg Capsule.Dr PO 20 mg DAILY [facility] Administration Ondansetron HCl 4 mg 11/26/20 00:04 Ondansetron Hcl 4 Mg/2 Ml Vial IVPUSH Q8H PRN Nausea and Vomiting Oxybutynin Chloride 10 mg 11/26/20 09:00 11/26/20 09:39 Oxybutynin Chloride Er 5 Mg Tab.Er.24 PO 10 mg DAILY [facility] Administration Paroxetine HCl 30 mg 11/26/20 09:00 11/26/20 09:40 Paroxetine Hcl 30 Mg Tablet PO 30 mg DAILY [facility] Administration Sodium Chloride 3 ml 11/26/20 00:04 11/26/20 07:38 0.9 % Sodium Chloride Flush 3 Ml Syringe IVFLUSH 3 ml QSHIFT [facility] Administration Vitamin D 25 mcg 11/26/20 09:00 11/26/20 09:40 Cholecalciferol (Vitamin D3) 25 Mcg Tablet PO 25 mcg DAILY [facility] Administration Labs CBC & Chem 7: 11/26/20 06:45 11/26/20 06:45 Assessment and Plan (1) Fall: Status: Acute (2) Ribs, multiple fractures: Status: Acute (3) Elevated troponin level not due myocardial infarction: Status: Acute (4) Hypertension, essential: Status: Acute (5) Lipid disorder: Status: Acute (6) Urinary incontinence in female: Status: Acute (7) Chronic GERD: Status: Acute Assessment and Plan: 60-year-old female who presents to the hospital after a mechanical fall found to have multiple rib fractures admitted for intractable left-sided chest pain, elevated troponin with no significant EKG changes # status post mechanical fall with multiple left-sided 5, 6 and 7 rib fractures Persistent chest pain with deep breathing, coughing and movement, no symptoms of lightheadedness, dizziness prior to fall or syncope On IV morphine for pain will add oxycodone, advice splinting and encourage incentive spirometry, will add as needed cough medication. # elevated troponin - troponin elevated but remains flat, no significant EKG changes, chest pain related to rib fracture, no history of prior coronary artery disease to be evaluated by gas station attendant and likely will need outpatient workup with underlying history of hypertension and diabetes, continue aspirin and lisinopril. # diabetes - blood sugars stable around 125 not on home medication continue diabetic diet and insulin sliding scale # hypertension - stable, continue lisinopril # chronic GERD - continue omeprazole # urinary incontinence on oxybutynin DVT prophylaxis: Heparin subQ
--- NOTE | 2020-11-26 14:03 | PM.CNCAR ---
History of Present Illness History of Present Illness Date of Service: 11/26/20 Requesting physician: Jimbo Solano Chief complaint: Noncardiac chest pain, positive troponin Narrative: 60-year-old female who presented with mechanical fall. She injured her ribs. She has chest pain. She was noticed to have mildly abnormal troponin level which increased slightly. She has known history of hypertension and diabetes. It appears she was not taking medications at home because she was vomiting. Her blood pressure at home was elevated and also in the ER her blood pressure initially was elevated. Her blood pressure is better controlled now. ECG did not show any specific changes. She has left-sided sharp chest pain. Review of Systems Review of Systems: Chest pain Yes all other systems are reviewed and are negative PMFSH Past Medical History Medical History Arthrosis Chronic GERD Depression, major, recurrent Diabetes 1.5, managed as type 2 Environmental allergies Hypertension, essential Lipid disorder Tobacco abuse Urinary incontinence in female Family History Family History Father History of heart attack HTN (hypertension) CVD (cardiovascular disease) Diabetes mellitus Mother Alzheimer's disease Sister Breast cancer Sister Lung cancer Uterine cancer Sister Colon cancer Surgical History Surgical History History of hysteroscopy History of open reduction and internal fixation (ORIF) procedure Hx of cholecystectomy Social History Social History Household Members: Children Housing: Apartment Do you presently have visiting nurse or other home services: Yes Alcohol intake: current Alcohol intake frequency: holidays/special occasions only Smoking Status: Current every day smoker Tobacco Type: Cigarette Cigarettes Per Day: 5 Years Smoked: 45 Smoked in Last 30 Days: Yes Patient Interested in Nicotine Replacement: No Use of substances other than those prescribed or required for medical reasons: No Substance Use Type: Marijuana Currently Displaying Signs/Symptoms of Drug Intoxication Withdrawal: No Have you been hit, kicked, punched, or otherwise hurt by someone within the past year? If so, by whom?: No Do you feel safe in your current relationship?: No Current Relationship Is there a partner from a previous relationship who is making you feel unsafe now?: No Are you made to feel afraid or neglected: No Advance Directives: No Advance Directives Information Provided: No Do you have thoughts of harming others: None Do you have a plan to hurt others: No Plan Recently lost weight without trying: Unsure service: No Current occupational status: disabled Meds Allergies Allergy/AdvReac Type Severity Reaction Status Date / Time oxycodone [OXYCODONE] Allergy Intermediate N/V, GI Unverified 06/02/20 15:44 PAIN acetaminophen [Percocet] AdvReac Unknown vomiting Verified 10/17/20 11:39 Active Medications: Current Medications Generic Name Dose Route Start Last Admin Trade Name Freq PRN Reason Stop Dose Admin Acetaminophen 650 mg 11/26/20 08:46 11/26/20 09:39 Acetaminophen 325 Mg Tablet PO 650 mg Q6H PRN Administration PAIN Aspirin 81 mg 11/26/20 09:00 11/26/20 09:40 Aspirin Enteric Coated 81 Mg Tablet.Dr PO 81 mg DAILY [facility] Administration Baclofen 10 mg 11/26/20 00:04 Baclofen 10 Mg Tablet PO DAILY PRN muscle spasm Docusate Sodium 100 mg 11/26/20 00:04 Docusate Sodium 100 Mg Capsule PO DAILY PRN Constipation Guaifenesin/Dextromethorphan 10 ml 11/26/20 13:27 Guaifenesin Dm 100/10/5 Ml 5 Ml Syrup PO Q6H PRN Cough Heparin Sodium (Porcine) 5,000 unit 11/26/20 00:04 11/26/20 12:06 Heparin Sodium,Porcine 5,000 Unit/Ml Vial SUBCUT 5,000 unit Q12H [facility] Administration Insulin Human Lispro 0 unit 11/26/20 07:30 11/26/20 11:16 Insulin Lispro 100 Unit/Ml 3 Ml Vial SUBCUT Not Given QIDACHS [facility] Protocol Lisinopril 20 mg 11/26/20 09:00 11/26/20 09:40 Lisinopril 20 Mg Tablet PO 20 mg DAILY [facility] Administration Protocol Morphine Sulfate 4 mg 11/26/20 00:04 11/26/20 12:06 Morphine Sulfate 4 Mg/Ml Cartridge IVPUSH 4 mg Q4H PRN Administration Pain, Severe (Pain Scale 7-10) Non-Formulary Medication 5 mg 11/26/20 09:00 Levocetirizine PO DAILY [facility] Omeprazole 20 mg 11/26/20 09:00 11/26/20 09:40 Omeprazole 20 Mg Capsule.Dr PO 20 mg DAILY [facility] Administration Ondansetron HCl 4 mg 11/26/20 00:04 Ondansetron Hcl 4 Mg/2 Ml Vial IVPUSH Q8H PRN Nausea and Vomiting Oxybutynin Chloride 10 mg 11/26/20 09:00 11/26/20 09:39 Oxybutynin Chloride Er 5 Mg Tab.Er.24 PO 10 mg DAILY [facility] Administration Oxycodone HCl 5 mg 11/26/20 13:27 Oxycodone Hcl Immed Release 5 Mg Tablet PO Q6H PRN Pain, Moderate (Pain Scale 4-6 Paroxetine HCl 30 mg 11/26/20 09:00 11/26/20 09:40 Paroxetine Hcl 30 Mg Tablet PO 30 mg DAILY [facility] Administration Sodium Chloride 3 ml 11/26/20 00:04 11/26/20 07:38 0.9 % Sodium Chloride Flush 3 Ml Syringe IVFLUSH 3 ml QSHIFT [facility] Administration Vitamin D 25 mcg 11/26/20 09:00 11/26/20 09:40 Cholecalciferol (Vitamin D3) 25 Mcg Tablet PO 25 mcg DAILY [facility] Administration Home Medications Medication Instructions Recorded Confirmed Last Taken Type aspirin 1 tab PO DAILY 11/25/20 11/25/20 11/25/20 08:00 History lisinopril 1 tab PO DAILY 11/25/20 11/25/20 11/25/20 18:46 History omeprazole 1 cap PO DAILY 11/25/20 11/25/20 11/24/20 21:00 History oxybutynin chloride 1 tab PO DAILY 11/25/20 11/25/20 11/25/20 08:00 History Physical Exam Vital Signs: Vital Signs: Last Vital Signs Temp 98.3 F 11/26/20 12:00 Pulse 83 11/26/20 12:00 Resp 18 11/26/20 12:06 BP 125/61 11/26/20 12:00 Pulse Ox 96 11/26/20 12:00 Body Mass Index 22.8 GENERAL APPEARANCE: in no acute distress, well developed, well nourished. HEENT: unremarkable. HEAD: normocephalic, atraumatic. NECK/THYROID: no carotid bruit, no jugular venous distention. SKIN: no suspicious lesions, warm and dry. HEART: no murmurs, regular rate and rhythm, S1, S2 normal. LUNGS: clear to auscultation bilaterally. Left-sided rib tenderness ABDOMEN: normal, bowel sounds present, soft, nontender, nondistended. EXTREMITIES: no clubbing, cyanosis, or edema. PERIPHERAL PULSES: equal. NEUROLOGIC: nonfocal, alert and oriented. PSYCH: mood/affect full range. Results Labs and Meds Result diagrams: 11/26/20 06:45 11/26/20 06:45 Lab results: Laboratory Results - last 24 hr 11/25/20 11/25/20 11/25/20 20:00 20:00 20:00 WBC 14.4 H RBC 4.32 Hgb 13.3 Hct 39.5 MCV 91.4 MCH 30.8 MCHC 33.7 RDW 12.3 Plt Count 304 MPV 9.4 Immature Gran % (Auto) 0.6 H Neut % (Auto) 91.1 H Lymph % (Auto) 5.5 L Hutchinson % (Auto) 2.6 Eos % (Auto) 0.0 Baso % (Auto) 0.2 Lymph # (Auto) 0.8 L Hutchinson # (Auto) 0.4 Eos # (Auto) 0.0 Baso # (Auto) 0.0 Abs Immat Gran (auto) 0.08 H Absolute Neuts (auto) 13.1 H Absolute Nucleated RBC 0.000 Nucleated RBC % (auto) 0.0 Smear Tech's Comments VERIFIED PT 11.5 INR 1.0 APTT 29.5 Sodium 140 Potassium 3.5 Chloride 103 Carbon Dioxide 20 L Anion Gap 21 H BUN 10 Creatinine 0.77 Estim Creat Clear Calc 77.4 Estimated GFR > 60 POC Glucose Random Glucose 181 H Calcium 9.8 Magnesium 1.6 Total Bilirubin 0.7 Direct Bilirubin 0.3 AST 23 ALT 26 Alkaline Phosphatase 126 H Troponin I High Sens Total Protein 8.0 Albumin 5.0 Lipase 30 Urine Color Urine Appearance Urine pH Ur Specific Rhame Urine Protein Urine Glucose (UA) Urine Ketones Urine Blood Urine Nitrite Ur Leukocyte Esterase Urine RBC Urine WBC Ur Squamous Epith Cells Urine Bacteria Urine Mucus COVID-19 ([facility]) COVID-19 Clin Com 11/25/20 11/25/20 11/25/20 20:00 20:18 20:36 WBC RBC Hgb Hct MCV MCH MCHC RDW Plt Count MPV Immature Gran % (Auto) Neut % (Auto) Lymph % (Auto) Hutchinson % (Auto) Eos % (Auto) Baso % (Auto) Lymph # (Auto) Hutchinson # (Auto) Eos # (Auto) Baso # (Auto) Abs Immat Gran (auto) Absolute Neuts (auto) Absolute Nucleated RBC Nucleated RBC % (auto) Smear Tech's Comments PT INR APTT Sodium Potassium Chloride Carbon Dioxide Anion Gap BUN Creatinine Estim Creat Clear Calc Estimated GFR POC Glucose 164 H Random Glucose Calcium Magnesium Total Bilirubin Direct Bilirubin AST ALT Alkaline Phosphatase Troponin I High Sens 72.9 H Total Protein Albumin Lipase Urine Color Urine Appearance Urine pH Ur Specific Rhame Urine Protein Urine Glucose (UA) Urine Ketones Urine Blood Urine Nitrite Ur Leukocyte Esterase Urine RBC Urine WBC Ur Squamous Epith Cells Urine Bacteria Urine Mucus COVID-19 ([facility]ASMIN) Negative COVID-19 Clin Com See Note 11/25/20 11/25/20 11/26/20 22:17 22:37 02:13 WBC RBC Hgb Hct MCV MCH MCHC RDW Plt Count MPV Immature Gran % (Auto) Neut % (Auto) Lymph % (Auto) Hutchinson % (Auto) Eos % (Auto) Baso % (Auto) Lymph # (Auto) Hutchinson # (Auto) Eos # (Auto) Baso # (Auto) Abs Immat Gran (auto) Absolute Neuts (auto) Absolute Nucleated RBC Nucleated RBC % (auto) Smear Tech's Comments PT INR APTT Sodium Potassium Chloride Carbon Dioxide Anion Gap BUN Creatinine Estim Creat Clear Calc Estimated GFR POC Glucose Random Glucose Calcium Magnesium Total Bilirubin Direct Bilirubin AST ALT Alkaline Phosphatase Troponin I High Sens 120.5 H D 123.1 H Total Protein Albumin Lipase Urine Color STRAW Urine Appearance CLEAR Urine pH 7.0 Ur Specific Rhame 1.025 Urine Protein 2+ H Urine Glucose (UA) 250 H Urine Ketones 15 Urine Blood 2+ H Urine Nitrite NEG Ur Leukocyte Esterase NEG Urine RBC 15-29 H Urine WBC 0-2 Ur Squamous Epith Cells TRACE Urine Bacteria NONE Urine Mucus TRACE COVID-19 ([facility]) COVID-19 Clin Com 11/26/20 11/26/20 11/26/20 06:45 06:45 08:41 WBC 10.7 RBC 3.69 L Hgb 11.5 L Hct 34.6 L MCV 93.8 MCH 31.2 MCHC 33.2 RDW 12.6 Plt Count 267 MPV 9.3 L Immature Gran % (Auto) 0.4 Neut % (Auto) 74.3 H Lymph % (Auto) 17.0 L Hutchinson % (Auto) 7.9 Eos % (Auto) 0.2 Baso % (Auto) 0.2 Lymph # (Auto) 1.8 Hutchinson # (Auto) 0.9 Eos # (Auto) 0.0 Baso # (Auto) 0.0 Abs Immat Gran (auto) 0.04 H Absolute Neuts (auto) 8.0 Absolute Nucleated RBC 0.000 Nucleated RBC % (auto) 0.0 Smear Tech's Comments PT INR APTT Sodium 138 Potassium 3.6 Chloride 105 Carbon Dioxide 22 Anion Gap 15 BUN 13 Creatinine 0.84 Estim Creat Clear Calc 70.9 Estimated GFR > 60 POC Glucose 128 H Random Glucose 114 D Calcium 8.8 D Magnesium Total Bilirubin Direct Bilirubin AST ALT Alkaline Phosphatase Troponin I High Sens Total Protein Albumin Lipase Urine Color Urine Appearance Urine pH Ur Specific Rhame Urine Protein Urine Glucose (UA) Urine Ketones Urine Blood Urine Nitrite Ur Leukocyte Esterase Urine RBC Urine WBC Ur Squamous Epith Cells Urine Bacteria Urine Mucus COVID-19 ([facility]AS[facility]) COVID-[employer] Com 11/26/20 11:15 WBC RBC Hgb Hct MCV MCH MCHC RDW Plt Count MPV Immature Gran % (Auto) Neut % (Auto) Lymph % (Auto) Hutchinson % (Auto) Eos % (Auto) Baso % (Auto) Lymph # (Auto) Hutchinson # (Auto) Eos # (Auto) Baso # (Auto) Abs Immat Gran (auto) Absolute Neuts (auto) Absolute Nucleated RBC Nucleated RBC % (auto) Smear Tech's Comments PT INR APTT Sodium Potassium Chloride Carbon Dioxide Anion Gap BUN Creatinine Estim Creat Clear Calc Estimated GFR POC Glucose 125 H Random Glucose Calcium Magnesium Total Bilirubin Direct Bilirubin AST ALT Alkaline Phosphatase Troponin I High Sens Total Protein Albumin Lipase Urine Color Urine Appearance Urine pH Ur Specific Rhame Urine Protein Urine Glucose (UA) Urine Ketones Urine Blood Urine Nitrite Ur Leukocyte Esterase Urine RBC Urine WBC Ur Squamous Epith Cells Urine Bacteria Urine Mucus COVID-19 ([facility]ASMIN) COVID-19 [employer] Com Imaging Radiologist's impression: Impressions Abdomen/Pelvis CT 11/25/20 19:51 IMPRESSION: CT chest, abdomen and pelvis: 1. Acute, mildly displaced angulated fractures of the anterior segments of the left fifth, sixth, seventh ribs. No pneumothoraces or pleural effusions. No additional acute abnormalities visualized. Normal spleen. No free intraperitoneal fluid or gas collections. 2. Moderate colonic diverticulosis. No evidence of acute diverticulitis. 3. Status post cholecystectomy. 4. Partially visualized calcific atherosclerosis of the proximal left anterior descending coronary artery. Cervical Spine CT 11/25/20 19:51 IMPRESSION: No acute intracranial pathology. No cervical spine fracture or malalignment. Chest CT 11/25/20 19:51 IMPRESSION: CT chest, abdomen and pelvis: 1. Acute, mildly displaced angulated fractures of the anterior segments of the left fifth, sixth, seventh ribs. No pneumothoraces or pleural effusions. No additional acute abnormalities visualized. Normal spleen. No free intraperitoneal fluid or gas collections. 2. Moderate colonic diverticulosis. No evidence of acute diverticulitis. 3. Status post cholecystectomy. 4. Partially visualized calcific atherosclerosis of the proximal left anterior descending coronary artery. Head CT 11/25/20 19:51 IMPRESSION: No acute intracranial pathology. No cervical spine fracture or malalignment. Assessment and Plan (1) Ribs, multiple fractures: Qualifiers: Encounter type: initial encounter Fracture type: closed Laterality: left Qualified Code(s): S22.42XA - Multiple fractures of ribs, left side, initial encounter for closed fracture Status: Acute (2) Elevated troponin level not due myocardial infarction: Status: Acute Pleasant 60-year-old female here for mechanical fall and rib fractures. She has chest pain due to rib fractures. Her blood pressure was elevated which led to mildly abnormal troponin level. Blood pressure is better controlled now. I think the troponin level is increased due to type 2 event due to elevated blood pressures. As per ER report her blood pressure was in 200s at home when the daughter checked it. I think that is enough to give mild troponin elevation. She can have further testing as outpatient if required. Current treatment goals are blood pressure control and pain control. Thank you for allowing me to participate in the care of your patient. Please feel free to contact me if you have any questions.
[2020-11-26] MEDS: oxyCODONE HCl Immed Release 5 MG TABLET PO ×2 (14:49→19:58)
[2020-11-26] MEDS: guaiFENesin DM 100/10/5 ML 5 ML SYRUP 10 ML PO (14:50)
[2020-11-26 16:27] LABS: Glucose, Whole Blood 113 mg/dL (60-115)
[2020-11-26 20:34] LABS: Glucose, Whole Blood 126 mg/dL (60-115)
[2020-11-27] VITALS (9 sets, daily range): BP systolic 100–122; BP diastolic 57–71; PULSE 66–83; RESP 15–19; TEMP 36–36.5; O2SAT 94–97
[2020-11-27 08:01] LABS: Glucose, Whole Blood 108 mg/dL (60-115)
[2020-11-27] MEDS: Omeprazole 20 MG CAPSULE.DR PO (08:40)
[2020-11-27] MEDS: PARoxetine HCL 30 MG TABLET PO (08:41)
[2020-11-27] MEDS: Morphine Sulfate 4 MG/ML CARTRIDGE IVPUSH ×3 (08:41→21:31)
[2020-11-27] MEDS: Aspirin Enteric Coated 81 MG TABLET.DR PO (08:41)
[2020-11-27] MEDS: 0.9 % Sodium Chloride Flush 3 ML SYRINGE IVFLUSH ×2 (08:41→16:08)
[2020-11-27] MEDS: Cholecalciferol (Vitamin D3) 25 MCG TABLET PO (08:41)
[2020-11-27] MEDS: lisinopriL 20 MG TABLET PO (08:41)
[2020-11-27] MEDS: Heparin Sodium,Porcine 5,000 UNIT/ML VIAL 5000 UNIT SUBCUT (11:22)
[2020-11-27] MEDS: oxyCODONE HCl Immed Release 5 MG TABLET PO (11:22)
[2020-11-27] MEDS: Acetaminophen 325 MG TABLET 650 MG PO ×2 (11:22→19:43)
[2020-11-27 11:42] LABS: Glucose, Whole Blood 119 mg/dL (60-115)
--- NOTE | 2020-11-27 11:57 | HO.PM.IMPN ---
Subjective Subjective Date of Service: 11/27/20 Interval History: Patient complaining of persistent left-sided chest discomfort worse with deep breathing, and coughing, no radiation of pain denies lightheadedness, no dizziness, no nausea, no vomiting no other acute issues overnight. ROS General no headache, no dizziness no fever chills. CVS chest pain left-sided with deep breathing and coughing, no palpitation. Respiratory no cough, no shortness of breath Gastrointestinal no nausea, no vomiting, no abdominal pain Physical Exam Vital Signs: Vital Signs: Last Vital Signs Temp 97.0 F 11/27/20 08:00 Pulse 83 11/27/20 08:41 Resp 18 11/27/20 08:41 BP 118/71 11/27/20 08:41 Pulse Ox 97 11/27/20 08:00 Body Mass Index 22.8 General no acute distress. Neck supple no JVD. CVS regular rate rhythm, Respiratory lungs clear to auscultation, decreased breath sound at bases, no respiratory distress, no wheeze, no rhonchi. Gastrointestinal abdomen soft, nontender, bowel sounds audible, no guarding , no rigidity. Extremities no edema. Neuro nonfocal, speech clear. Objective Data Current Medications Generic Name Dose Route Start Last Admin Trade Name Freq PRN Reason Stop Dose Admin Acetaminophen 650 mg 11/26/20 08:46 11/27/20 11:22 Acetaminophen 325 Mg Tablet PO 650 mg Q6H PRN Administration PAIN Aspirin 81 mg 11/26/20 09:00 11/27/20 08:41 Aspirin Enteric Coated 81 Mg Tablet.Dr PO 81 mg DAILY [facility] Administration Baclofen 10 mg 11/26/20 00:04 Baclofen 10 Mg Tablet PO DAILY PRN muscle spasm Docusate Sodium 100 mg 11/26/20 00:04 Docusate Sodium 100 Mg Capsule PO DAILY PRN Constipation Guaifenesin/Dextromethorphan 10 ml 11/26/20 13:27 11/26/20 14:50 Guaifenesin Dm 100/10/5 Ml 5 Ml Syrup PO 10 ml Q6H PRN Administration Cough Heparin Sodium (Porcine) 5,000 unit 11/26/20 00:04 11/27/20 11:22 Heparin Sodium,Porcine 5,000 Unit/Ml Vial SUBCUT 5,000 unit Q12H [facility] Administration Insulin Human Lispro 0 unit 11/26/20 07:30 11/27/20 11:43 Insulin Lispro 100 Unit/Ml 3 Ml Vial SUBCUT Not Given QIDACHS [facility] Protocol Lisinopril 20 mg 11/26/20 09:00 11/27/20 08:41 Lisinopril 20 Mg Tablet PO 20 mg DAILY [facility] Administration Protocol Morphine Sulfate 4 mg 11/26/20 00:04 11/27/20 08:41 Morphine Sulfate 4 Mg/Ml Cartridge IVPUSH 4 mg Q4H PRN Administration Pain, Severe (Pain Scale 7-10) Non-Formulary Medication 5 mg 11/26/20 09:00 Levocetirizine PO DAILY [facility] Omeprazole 20 mg 11/26/20 09:00 11/27/20 08:40 Omeprazole 20 Mg Capsule.Dr PO 20 mg DAILY [facility] Administration Ondansetron HCl 4 mg 11/26/20 00:04 Ondansetron Hcl 4 Mg/2 Ml Vial IVPUSH Q8H PRN Nausea and Vomiting Oxybutynin Chloride 10 mg 11/26/20 09:00 11/27/20 08:40 Oxybutynin Chloride Er 5 Mg Tab.Er.24 PO 10 mg DAILY [facility] Administration Oxycodone HCl 5 mg 11/26/20 13:27 11/27/20 11:22 Oxycodone Hcl Immed Release 5 Mg Tablet PO 5 mg Q6H PRN Administration Pain, Moderate (Pain Scale 4-6 Paroxetine HCl 30 mg 11/26/20 09:00 11/27/20 08:41 Paroxetine Hcl 30 Mg Tablet PO 30 mg DAILY [facility] Administration Sodium Chloride 3 ml 11/26/20 00:04 11/27/20 08:41 0.9 % Sodium Chloride Flush 3 Ml Syringe IVFLUSH 3 ml QSHIFT [facility] Administration Vitamin D 25 mcg 11/26/20 09:00 11/27/20 08:41 Cholecalciferol (Vitamin D3) 25 Mcg Tablet PO 25 mcg DAILY [facility] Administration Labs CBC & Chem 7: 11/26/20 06:45 11/26/20 06:45 Assessment and Plan (1) Ribs, multiple fractures: Status: Acute (2) Elevated troponin level not due myocardial infarction: Status: Acute (3) Hypertension, essential: Status: Acute (4) Chronic GERD: Status: Acute (5) Urinary incontinence in female: Status: Acute Assessment and Plan: 60-year-old female who presents to the hospital after a mechanical fall found to have multiple rib fractures admitted for intractable left-sided chest pain, elevated troponin with no significant EKG changes # status post mechanical fall with multiple left-sided 5, 6 and 7 rib fractures Persistent chest wall pain with deep breathing, coughing and movement, no symptoms of lightheadedness, dizziness prior to fall or syncope Continue by mouth oxycodone and as needed IV morphine for pain , advice splinting and encourage incentive spirometry, continue as needed cough medication. Recommend out of bed and ambulation as tolerated, possible discharge home tomorrow, oxygenating 95% on room air. # elevated troponin - troponin elevated but remains flat, no significant EKG changes, chest pain related to rib fracture, no history of prior coronary artery disease , seen by Dr. Corrales he feels elevated troponin is due to a uncontrolled blood pressure, will need outpatient workup with underlying history of hypertension and diabetes, continue aspirin and lisinopril. # diabetes - blood sugars stable around 125 not on home medication continue diabetic diet and insulin sliding scale # hypertension - stable, continue lisinopril # chronic GERD - continue omeprazole # urinary incontinence on oxybutynin DVT prophylaxis: Heparin subQ
--- NOTE | 2020-11-27 14:42 | MHC.CM.PN ---
PER REVIEW OF CHART, NO PLAN FOR DISCHARGE TODAY. CM FOLLOWING IN THE EVENT THAT THERE ARE ANY DC NEEDS.
[2020-11-27 17:14] LABS: Glucose, Whole Blood 127 mg/dL (60-115)
[2020-11-27 20:39] LABS: Glucose, Whole Blood 125 mg/dL (60-115)
[2020-11-28] MEDS: Heparin Sodium,Porcine 5,000 UNIT/ML VIAL 5000 UNIT SUBCUT ×2 (00:20→11:31)
[2020-11-28] MEDS: Morphine Sulfate 4 MG/ML CARTRIDGE IVPUSH ×2 (00:20→08:12)
[2020-11-28] MEDS: 0.9 % Sodium Chloride Flush 3 ML SYRINGE IVFLUSH ×3 (00:39→15:52)
[2020-11-28 03:30] VITALS: BP 102/58; PULSE 69; RESP 18; TEMP 36.3; O2SAT 96
[2020-11-28 07:11] VITALS: BP 98/52; PULSE 70; RESP 18; TEMP 36.6; O2SAT 97
[2020-11-28 07:30] LABS: Glucose, Whole Blood 111 mg/dL (60-115)
[2020-11-28] MEDS: Omeprazole 20 MG CAPSULE.DR PO (08:11)
[2020-11-28] MEDS: PARoxetine HCL 30 MG TABLET PO (08:11)
[2020-11-28] MEDS: Aspirin Enteric Coated 81 MG TABLET.DR PO (08:11)
[2020-11-28] MEDS: Cholecalciferol (Vitamin D3) 25 MCG TABLET PO (08:11)
[2020-11-28 08:12] VITALS: BP 115/55; PULSE 65
[2020-11-28] MEDS: lisinopriL 20 MG TABLET PO (08:12)
[2020-11-28] MEDS: ondansetron HCL 4 MG/2 ML VIAL IVPUSH (09:41)
[2020-11-28 10:56] VITALS: BP 103/63; PULSE 57; RESP 18; TEMP 36.1; O2SAT 97
--- NOTE | 2020-11-28 11:06 | MHC.CM.PN ---
Per ROUNDS discussion, Patient will be medically cleared for dc to home today/no services. Last IMM addressed on 11/26.
--- NOTE | 2020-11-28 11:10 | P.DS_ITS ---
DS: Providers Provider Date of Service: 11/28/20 Date of admission: 11/25/20 23:47 Primary care physician: Unknown Physician Consults: 11/26/20 05:50 Consult to Cardiology Routine Consulting Provider: Miguel Corrales Reason for consultation: Elevated troponin Has provider been notified: Yes DS: Diagnosis Discharge Diagnosis (1) Ribs, multiple fractures: Status: Acute (2) Elevated troponin level not due myocardial infarction: Status: Acute (3) Hypertension, essential: Status: Acute (4) Chronic GERD: Status: Acute (5) Urinary incontinence in female: Status: Acute DS: Medications Discharge Medications Home Medications: Home Medications Medication Instructions Recorded Confirmed aspirin 1 tab PO DAILY 11/25/20 11/25/20 lisinopril 1 tab PO DAILY 11/25/20 11/25/20 omeprazole 1 cap PO DAILY 11/25/20 11/25/20 oxybutynin chloride 1 tab PO DAILY 11/25/20 11/25/20 Previous Rx's Medication Instructions Recorded cholecalciferol (vitamin D3) 25 25 mcg PO DAILY 90 Days #90 cap 08/07/20 mcg (1,000 unit) capsule baclofen 10 mg tablet 10 mg PO DAILY PRN 30 Days #30 tab 10/31/20 paroxetine HCl 30 mg tablet 30 mg PO DAILY #90 tab 11/02/20 levocetirizine 5 mg tablet 5 mg PO DAILY 30 Days #30 tab 11/27/20 oxycodone 5 mg PO Q6H PRN #14 tab 11/28/20 DS: Summary Hospital Course Hospital Course: History of presenting illness Chief Complaint: fall and chest pain This is a 60-year-old female with past medical history of diabetes, hypertension, LDH, urinary incontinence, depression, GERD, osteoarthritis who presents to the hospital after a mechanical fall followed by severe chest pain. Patient reports that she tripped on a carpet in her house, and immediately after developed pain in the left chest, pain is worse with deep inspiration, she had difficulty breathing as a result, the pain felt like she could not take a deep breath. She has been doing well prior to that otherwise. She denies any headache, change in vision, no head trauma, no dizziness or palpitations, no loss of consciousness, no nausea or vomiting, diarrhea constipation. No ab dominal pain, no urinary symptoms and no lower extremity edema. This pain is 10/10, nonradiating, constant, heavy in sensation. Worse with deep inspiration, improved with pain medications seated in the ED On arrival to the ED patient vitals are significant for temp of 97.0?, pulse rate of 74, respiratory rate of 20, blood pressure 163/95 satting 100% on room air Labs are significant for WBC count of 14.4, alk-phos of 126, troponin of 75 on repeat of 120, UA that is positive for blood and RBC was no evidence of infection, head CT reviewed shows no intracranial pathology, cervical spine shows no fracture or misalignment, chest CT showsMild displaced angulated fractures of the anterior segments of the left 5th 6th and 7th ribs with no pneumothorax or pleural effusion. EKG shows sinus rhythm with no ST T wave abnormalities Hospital course 60-year-old female who presents to the hospital after a mechanical fall found to have multiple rib fractures admitted for intractable left-sided chest pain, elevated troponin with no significant EKG changes # status post mechanical fall with multiple left-sided 5, 6 and 7 rib fractures, patient chest wall pain is improving her oxygenation is stable with no shortness of breath, patient is being discharged home on by mouth oxycodone instructed to continue use of incentive spirometry, cough medication as needed and follow-up with primary care physician # elevated troponin, troponin elevated but remains flat, no significant EKG changes, chest pain related to rib fracture, no history of prior coronary artery disease , seen by Dr. Corrales he feels elevated troponin is due to uncontrolled blood pressure, will need outpatient workup with underlying history of hypertension and diabetes, continue aspirin and lisinopril. # diabetes blood sugars stable around 125 not on home medication recommend to continue diabetic diet # hypertension continue lisinopril # chronic GERD continue omeprazole # urinary incontinence on oxybutynin Time Spent with Patient Time attestation: Total time spent providing and/or coordinating discharge services: Discharge coordination time: Greater than 30 minutes Physical Exam Vital Signs: Vital Signs: Last Vital Signs Temp 97 F 11/28/20 10:56 Pulse 57 11/28/20 10:56 Resp 18 11/28/20 10:56 BP 103/63 11/28/20 10:56 Pulse Ox 97 11/28/20 10:56 Body Mass Index 22.8 General no acute distress. Neck supple no JVD. CVS regular rate rhythm, Respiratory lungs clear to auscultation, decreased breath sound at bases, no respiratory distress, no wheeze, no rhonchi. Gastrointestinal abdomen soft, nontender, bowel sounds audible, no guarding , no rigidity. Extremities no edema. Neuro nonfocal, speech clear. DS: Data Data Completed and Pending Labs on day of discharge: Laboratory Results - last 24 hr 11/27/20 11/27/20 11/27/20 11:38 17:09 20:25 POC Glucose 119 H 127 H 125 H 11/28/20 07:11 POC Glucose 111 Discharge Plan Discharge Patient Disposition: Home, Self-Care Referrals: Physician,Unknown [Primary Care Provider] - Discharge Medications: New oxycodone 5 mg Tablet 5 mg PO Q6H PRN (Reason: Pain, Moderate (Pain Scale 4-6) Qty: 14 RF: 0 Continued cholecalciferol (vitamin D3) 25 mcg (1,000 unit) capsule 25 mcg PO DAILY 90 Days Qty: 90 RF: 3 baclofen 10 mg tablet 10 mg PO DAILY PRN (Reason: muscle spasm) 30 Days Qty: 30 RF: 0 paroxetine HCl 30 mg tablet 30 mg PO DAILY Qty: 90 RF: 0 levocetirizine 5 mg tablet 5 mg PO DAILY 30 Days Qty: 30 RF: 0 oxybutynin chloride 10 mg tablet extended release 24hr 1 tab PO DAILY RF: 0 lisinopril 20 mg tablet 1 tab PO DAILY RF: 0 aspirin 81 mg tablet,delayed release (DR/EC) 1 tab PO DAILY RF: 0 omeprazole 20 mg capsule,delayed release(DR/EC) 1 cap PO DAILY RF: 0 Discharge Orders: Discharge Order (Routine); Ordered 11/28/20 Ordered By: Jimbo Solano Diet: low fat, low cholesterol Activity on Discharge: As tolerated Stand Alone Forms: Patient Portal Discharge page Care Plan Goals: Left-sided rib fractures continue using incentive spirometry take oxycodone with severe pain otherwise use Tylenol as needed use a pillow to splint with coughing and walking Health Concerns: Left-sided rib fractures/elevated blood pressure and troponin take all blood pressure medications as prescribed Plan of Treatment: Outpatient follow-up with Cardiology Dr. Corrales for cardiac workup due to elevated troponin, outpatient follow-up with primary care physician.
[2020-11-28] MEDS: oxyCODONE HCl Immed Release 5 MG TABLET PO ×2 (11:32→17:31)
[2020-11-28 11:33] LABS: Glucose, Whole Blood 109 mg/dL (60-115)
[2020-11-28 16:40] LABS: Glucose, Whole Blood 86 mg/dL (60-115)
== END 2020-11-28 18:25 | disposition home or self-care (01) | DRG 185 ==
LOC: HO.ED 11-26 → HO.S3 11-26 00:52 → HO.IMC 11-27 19:34
PROVIDERS: Nurse Practitioner Family; Admitting Provider Internal Medicine; Emergency Provider Emergency Medicine; Visit Provider Hospitalist
DX: S22.42XA Multiple fractures of ribs, left side, initial encounter for closed fracture (principal); W01.198A Fall on same level from slipping, tripping and stumbling with subsequent striking against other object, initial encounter; Y93.9 Activity, unspecified; Y92.9 Unspecified place or not applicable; Y99.9 Unspecified external cause status; K21.9 Gastro-esophageal reflux disease without esophagitis; E78.5 Hyperlipidemia, unspecified; R74.8 Abnormal levels of other serum enzymes; E11.9 Type 2 diabetes mellitus without complications; R32 Unspecified urinary incontinence; I10 Essential (primary) hypertension; F32.9 Major depressive disorder, single episode, unspecified; Z20.822 Contact with and (suspected) exposure to COVID-19; Z88.5 Allergy status to narcotic agent; Z88.6 Allergy status to analgesic agent; Z79.82 Long term (current) use of aspirin; Z79.899 Other long term (current) drug therapy
CPT/HCPCS: 36415; 70450; 71250; 72125; 74176; 80048; 80076; 81001; 82947; 83690; 83735; 84484; 85025; 85610; 85730; 87635; 93005; 96374; 96375; 99285; 99291; J2270; J2405

== ENCOUNTER 2021-05-26 12:55 | Outpatient (REF) | payer MEDICARE, MEDICAID, SELFPAY ==
[2021-05-26 14:22] LABS: MANUAL DIFF FLAG NO
[2021-05-26 14:28] LABS: Basophils Percent Auto 0.3 % (0-2); Eosinophils Absolute Auto 0.2 X10*3/uL (0.0-0.4); Eosinophils Percent Auto 1.5 % (0-4); Hemoglobin 13.3 g/dl (12.0-16.0); Imm Gran Abs Auto 0.04 X10*3/uL (0.00-0.03); Imm Gran Pct Auto 0.4 % (0.0-0.4); Lymphocytes Absolute Auto 2.1 X10*3/uL (1.2-4.9); Lymphocytes Percent Auto 20.7 % (20-40); Mean Corpuscular HGB Conc 33.3 g/dl (31.0-35.0); Mean Corpuscular Volume 96.2 fL (80-98); Monocytes Absolute Auto 0.7 X10*3/uL (0.1-1.2); Monocytes Percent Auto 7.1 % (2-11); Neutrophils Absolute Auto 7.1 X10*3/uL (2.0-8.3); Platelet Count 259 X10*3/uL (160-400); Red Blood Count 4.16 X10*6/uL (4.20-5.50); Red Cell Distribution Width 13.2 % (11.0-16.0); White Blood Count 10.2 X10*3/uL (4.8-10.8)
[2021-05-26 14:46] LABS: Estimated Average Glucose 114 mg/dL; Hemoglobin A1c % 5.6 %
[2021-05-26 14:47] LABS: Alanine Aminotransferase 36 U/L (0-31); Albumin Level 4.7 g/dL (3.5-5.0); Alkaline Phosphatase 126 U/L (39-117); Anion Gap 17 (12-20); Aspartate Amino Transferase 27 U/L (5-31); Bilirubin Total 0.6 mg/dL (0.0-1.0); Blood Urea Nitrogen 7 mg/dL (9-16); Calcium 10.3 mg/dL (8.4-10.2); Carbon Dioxide 23 mmol/L (22-29); Chloride 108 mmol/L (96-108); Estimated Glomerular Filt Rate > 60; Glucose Random 90 mg/dL (60-115); Potassium 4.3 mmol/L (3.3-5.1); Sodium 144 mmol/L (135-145); Total Protein 7.2 g/dL (6.5-8.0)
== END 2021-05-26 12:56 | disposition home or self-care (01) ==
LOC: HO.HMGCLDS 12:55
PROVIDERS: PCP Internal Medicine; Visit Provider Internal Medicine
DX: M51.26 Other intervertebral disc displacement, lumbar region (principal); F33.9 Major depressive disorder, recurrent, unspecified; M62.830 Muscle spasm of back; Z91.09 Other allergy status, other than to drugs and biological substances; Z72.0 Tobacco use
CPT/HCPCS: 36415; 80053; 83036; 85025

== ENCOUNTER 2021-06-06 12:58 | Outpatient (REF) | payer MEDICARE, MEDICAID, SELFPAY ==
--- NOTE | ~2021-06-06 | MM_ITS ---
EXAMINATION: MM SCREENING DIGITAL BREAST TOMOSYNTHESIS, BILATERAL CLINICAL INFORMATION: Screening. Asymptomatic. The lifetime risk of breast cancer based on the Tyrer-Cuzick Model is 11.5%. COMPARISON: Mammography: November 26, 2019 and studies dating back to April 24, 2016 TECHNIQUE: Digital breast tomosynthesis is performed in both the craniocaudal and mediolateral oblique views along with computer-aided detection (CAD). Synthesized 2D images are generated from the tomosynthesis. FINDINGS: There are scattered areas of fibroglandular density (ACR BI-RADS breast composition Category b). There are no significant masses, abnormal calcifications, or other abnormalities. MM/MM tomosynthesis screening BI IMPRESSION: There are no significant changes from prior study. ASSESSMENT: BI-RADS 1: Negative RECOMMENDATION: Routine annual mammography screening. This patient's information was entered into a reminder system with a target due date for their next mammogram.
== END 2021-06-06 12:59 | disposition home or self-care (01) ==
LOC: HO.MAMMO 12:58
PROVIDERS: Visit Provider Internal Medicine
DX: Z12.31 Encounter for screening mammogram for malignant neoplasm of breast (principal)
CPT/HCPCS: 77063; 77067

== ENCOUNTER 2021-06-14 09:57 | Outpatient (REF) | payer MEDICARE, MEDICAID, SELFPAY ==
--- NOTE | ~2021-06-14 | MM_ITS ---
EXAMINATION: BONE DENSITOMETRY CLINICAL INDICATION: Menopausal female climacteric state. COMPARISON: None (current study represents initial baseline exam). TECHNIQUE: Using a [employer] DXA System (software version: 13.1) manufactured by [employer], dual-energy x-ray absorptiometry was performed of the lumbar spine and left hip. The images are of good technical quality. Summary results are attached. FINDINGS: AP SPINE L1-L4: BMD 0.863 g/cm2, Z-score -1.4, T-score -2.6, osteoporosis. LEFT FEMUR, NECK: BMD 0.714 g/cm2, Z-score -1.1, T-score -2.3, osteopenia. LEFT FEMUR, TOTAL: BMD 0.795 g/cm2, Z-score -0.7, T-score -1.7, osteopenia. IDENTIFIED RISK FACTORS: Recurrent falls, tobacco use (current smoker), history of fracture (adult). Early menopause, secondary osteoporosis. HISTORY OF FRACTURE: Ribs. MEDICATIONS: None listed. MM/XR DEXA axial skeleton IMPRESSION: 1. DIAGNOSIS: Osteoporosis based on the lowest T-score value of -2.6 in the lumbar spine applying World Health Organization criteria. 2. 10-YEAR FRACTURE RISK PREDICTION, FRAX: Major osteoporotic fracture (clinical spine, forearm, hip or shoulder) 11.4%. Hip fracture 3.1%. 3. Treatment Recommendations: NOF guidelines recommend consideration for treatment in postmenopausal women and men age 50 and older presenting with the following: -A hip or vertebral (clinical or morphometric) fracture. -T-score less than or equal to -2.5 at the femoral neck or spine after appropriate evaluation to exclude secondary causes. -Low bone mass at the hip or spine and a 10-year fracture probability by FRAX of greater than or equal to 3% for hip fracture or greater than or equal to 20% for major osteoporotic fracture based on the [place] adapted WHO algorithm. 4. Other Recommendations: All treatment decisions require clinical judgment and consideration of individual patient factors, including patient preferences, comorbidities, previous drug use, risk factors not captured in the FRAX model (e.g. frailty, falls, vitamin D deficiency, increased bone turnover, interval significant decline in bone density) and possible under or overestimation of fracture risk by FRAX. Additional medical evaluation for secondary cause of low bone mineral density may be appropriate. FUTURE SCAN RECOMMENDATION: People with diagnosed cases of osteoporosis or at high risk for fracture should have regular bone mineral density tests. For patients eligible for Medicare, routine testing is allowed once every 2 years. The testing frequency can be increased to one year for patients who have rapidly progressing disease, those who are receiving or discontinuing medical therapy to restore bone mass, or have additional risk factors.
== END 2021-06-14 09:58 | disposition home or self-care (01) ==
LOC: HO.MAMMO 09:57
PROVIDERS: Visit Provider Internal Medicine
DX: Z13.820 Encounter for screening for osteoporosis (principal); Z78.0 Asymptomatic menopausal state
CPT/HCPCS: 77080

== ENCOUNTER → 2021-06-15 12:10 | Outpatient (BNVA) | payer MEDICARE, MEDICAID, SELFPAY | PROVIDERS: PCP Internal Medicine; Visit Provider Obstetrics & Gynecology | DX: Z01.419 Encounter for gynecological examination (general) (routine) without abnormal findings (principal); M81.0 Age-related osteoporosis without current pathological fracture; N95.0 Postmenopausal bleeding | CPT/HCPCS: 99212 ==

== ENCOUNTER 2021-06-16 09:01 | Outpatient (REF) | payer MEDICARE, MEDICAID, SELFPAY ==
[2021-06-16 13:14] LABS: Alanine Aminotransferase 25 U/L (0-31); Albumin Level 4.3 g/dL (3.5-5.0); Alkaline Phosphatase 112 U/L (39-117); Aspartate Amino Transferase 23 U/L (5-31); Bilirubin Direct < 0.2 mg/dL (0.0-0.5); Bilirubin Total 0.4 mg/dL (0.0-1.0); Calcium 9.4 mg/dL (8.4-10.2); Total Protein 6.6 g/dL (6.5-8.0)
== END 2021-06-16 09:02 | disposition home or self-care (01) ==
LOC: HO.HMGCLDS 09:01
PROVIDERS: PCP Internal Medicine; Visit Provider Internal Medicine
DX: E83.52 Hypercalcemia (principal); R94.5 Abnormal results of liver function studies
CPT/HCPCS: 36415; 80076; 82310

== ENCOUNTER 2021-06-29 14:40 | Outpatient (REF) | payer MEDICARE, MEDICAID, SELFPAY ==
--- NOTE | ~2021-06-29 | US_ITS ---
EXAMINATION: US PELVIC AND TRANSVAGINAL CLINICAL INFORMATION: Postmenopausal bleeding. COMPARISON: CT abdomen/pelvis dated 11/25/2020 and pelvic ultrasound dated 08/17/2016. TECHNIQUE: Ultrasound of the pelvis is performed using both transabdominal and transvaginal transducers along with Doppler. Transvaginal imaging is performed due to inadequate visualization transabdominally. FINDINGS: Uterus: The uterus is anteverted and measures 6.4 x 2.8 x 3 cm. There are nabothian cysts. The double wall endometrial thickness is 0.4 mm. There is trace fluid within the endometrium. The uterus is smooth in contour and has normal myometrial echogenicity. No visible fibroid. Adnexa: Both ovaries are visualized. There is normal color flow to the adnexa. There is no ovarian torsion. There is no pelvic ascites or fluid collection. Right ovary measures 1.2 x 0.8 x 0.6 cm. Right ovarian volume of 0.3 mL. Left ovary measures 2.2 x 0.8 x 1.5 cm. Left ovarian volume of 1.4 mL. US/US pelvic and transvaginal IMPRESSION: 1. Trace fluid within the endometrium. No endometrial thickening. 2. No myometrial lesion. 3. Sonographically unremarkable right and left ovary.
== END 2021-06-29 14:41 | disposition home or self-care (01) ==
LOC: HO.US 14:40
PROVIDERS: PCP Internal Medicine; Visit Provider Obstetrics & Gynecology
DX: N95.0 Postmenopausal bleeding (principal)
CPT/HCPCS: 76830; 76856

== ENCOUNTER 2021-07-13 13:52 | Outpatient (REF) | payer MEDICARE, MEDICAID, SELFPAY ==
[2021-07-18 05:46] LABS: HPV mRNA E6/E7 rflx Not Detected (Not Detected)
== END 2021-07-13 13:53 | disposition home or self-care (01) ==
LOC: HO.LAB 13:52
PROVIDERS: PCP Internal Medicine; Visit Provider Obstetrics & Gynecology
DX: Z01.411 Encounter for gynecological examination (general) (routine) with abnormal findings (principal); Z11.51 Encounter for screening for human papillomavirus (HPV); N95.0 Postmenopausal bleeding
CPT/HCPCS: 87624; 88142; 99212

== ENCOUNTER 2021-08-10 18:27 | Emergency (ER) | payer MEDICARE, MEDICAID, SELFPAY ==
--- NOTE | 2021-08-10 18:33 | ECG_ITS ---
Test Reason : OVERDOSE Blood Pressure : / mmHG Vent. Rate : 113 BPM Atrial Rate : 113 BPM P-R Int : 170 ms QRS Dur : 068 ms QT Int : 330 ms P-R-T Axes : 057 035 086 degrees QTc Int : 452 ms Poor data quality Sinus tachycardia Nonspecific ST abnormality Inferior leads Lateral leads Abnormal ECG When compared with ECG of 26-NOV-2020 02:05, Vent. rate has increased BY 42 BPM Referred By: Felisa Cowart Electronically Signed By:TRACI VIVAR MD
[2021-08-10 18:34] VITALS: BP 105/51; BP 136/80; PULSE 116; PULSE 133; RESP 16; TEMP 36.4; O2SAT 96; O2SAT 98; BMI 29.2
[2021-08-10 19:05] LABS: MANUAL DIFF FLAG NO
[2021-08-10 19:06] LABS: Basophils Percent Auto 0.3 % (0-2); Eosinophils Absolute Auto 0.1 X10*3/uL (0.0-0.4); Eosinophils Percent Auto 0.6 % (0-4); Hematocrit 41.7 % (37.0-47.0); Hemoglobin 13.5 g/dl (12.0-16.0); Imm Gran Abs Auto 0.29 X10*3/uL (0.00-0.03); Lymphocytes Absolute Auto 3.2 X10*3/uL (1.2-4.9); Lymphocytes Percent Auto 22.2 % (20-40); Mean Corpuscular HGB Conc 32.4 g/dl (31.0-35.0); Mean Corpuscular Hemoglobin 31.5 pg (27.0-33.0); Mean Corpuscular Volume 97.4 fL (80.0-98.0); Mean Platelet Volume 9.6 fL (9.4-12.3); Monocytes Absolute Auto 0.4 X10*3/uL (0.1-1.2); Neutrophils Absolute Auto 10.4 x10*3/uL (2.0-8.3); Neutrophils Percent Auto 71.9 % (45-73); Platelet Count 350 X10*3/uL (160-400); Red Blood Count 4.28 X10*6/uL (4.20-5.50); Red Cell Distribution Width 12.5 % (11.0-16.0); White Blood Count 14.4 X10*3/uL (4.8-10.8)
[2021-08-10 19:07] LABS: Appearance Urine CLEAR; Color Urine YELLOW; Glucose Urine UA >=1000 MG/DL (NEG); Leukocyte Esterase Urine NEG (NEG); Nitrite Urine NEG (NEG); PH 5.5 (5.0-8.0); Specific Gravity - Urine 1.025 (1.005-1.025); UACC Culture Trigger NO; Urine Blood 1+ (NEG); Urine Ketones NEG (NEG); Urine Protein 1+ MG/DL (NEG-TRACE)
[2021-08-10 19:14] LABS: Bacteria Urine 1+ /LPF; Squamous Epithelial Cell Urine 1+ /LPF; WBC Urine 0 /HPF (0-4)
[2021-08-10 19:16] LABS: Ethanol < 10 mg/dL
--- NOTE | 2021-08-10 19:24 | ED.OVERDOSE ---
HPI - Overdose General Chief Complaint: Overdose Stated Complaint: unresponsive od Time Seen by Provider: 08/10/21 18:28 Source: family (Daughter) and EMS Mode of arrival: EMS History of Present Illness HPI Narrative: 60-year-old female with history of depression is brought in by EMS after being found unresponsive at home. First responders noted that patient was agonal breathing with pinpoint pupils and administered 2-4 mg intranasal Narcan is a and required supportive respirations. EMS placed an IO and administered additional Narcan. Patient is otherwise noted to be answering all questions, however refuses to answer the question whether not she performs this activity in an effort to hurt herself and of note EMS states that a ?cutting straw was found at the bedside?. On obtaining collateral information the daughter informs that patient has been using cocaine recently. Related Data Home Medications Medication Instructions Recorded Confirmed oxybutynin chloride 10 mg 1 tab PO DAILY 11/25/20 05/26/21 tablet,extended release 24 hr magnesium oxide 400 mg PO DAILY 01/27/21 05/26/21 trazodone 50 mg tablet 25 mg PO BEDTIME 05/26/21 Previous Rx's Medication Instructions Recorded cholecalciferol (vitamin D3) 25 25 mcg PO DAILY 90 Days #90 cap 08/07/ mcg (1,000 unit) capsule aspirin 81 mg tablet,delayed 81 mg PO DAILY #90 tab 02/16/21 release lisinopril 20 mg tablet 20 mg PO DAILY 90 Days #90 tab 05/02/21 cyclobenzaprine 10 mg tablet 10 mg PO BEDTIME PRN 90 Days #90 05/26/21 tab alendronate 70 mg tablet 70 mg PO QWEEK #14 tab 06/15/21 levocetirizine 5 mg tablet 5 mg PO DAILY 30 Days #30 tab 06/19/21 acetaminophen 650 mg 650 mg PO Q12H PRN 90 Days #180 tab 07/14/21 tablet,extended release (Mapap Arthritis Pain) meclizine 12.5 mg tablet 12.5 mg PO DAILY PRN #30 tab 07/14/21 omeprazole 20 mg capsule,delayed 20 mg PO DAILY #90 cap 07/17/21 release paroxetine HCl 40 mg tablet 40 mg PO QAM 90 Days #90 tab 07/18/21 Allergies Allergy/AdvReac Type Severity Reaction Status Date / Time oxycodone [OXYCODONE] Allergy Intermediate N/V, GI Verified 07/13/21 14:06 PAIN acetaminophen [Percocet] AdvReac Unknown vomiting Verified 07/13/21 14:06 Review of Systems Review of Systems: Pertinent positives and negatives as stated in HPI 10 point review of systems is otherwise negative. [facility] Past Medical History Source: nursing notes reviewed Medical History Arthrosis Chronic GERD Depression, major, recurrent Diabetes 1.5, managed as type 2 Elevated troponin level not due myocardial infarction Environmental allergies Fall Hypertension, essential Lipid disorder Tobacco abuse Urinary incontinence in female Surgical History History of hysteroscopy History of open reduction and internal fixation (ORIF) procedure Hx of cholecystectomy Family History Family History Father History of heart attack HTN (hypertension) CVD (cardiovascular disease) Diabetes mellitus Mother Alzheimer's disease Sister Breast cancer Sister Lung cancer Uterine cancer Sister Colon cancer Social History Social History Household Members: Children Housing: Apartment Do you presently have visiting nurse or other home services: Yes Alcohol intake: current Alcohol intake frequency: holidays/special occasions only Cigarettes Per Day: 5 Years Smoked: 45 Substance Use Type: Marijuana Advance Directives: No Advance Directives Information Provided: No service: No Current occupational status: disabled Physical Exam Vital Signs: Vital Signs: Last Vital Signs Temp 97.8 F 08/10/21 19:54 Pulse 110 H 08/10/21 19:54 Resp 18 08/10/21 19:54 BP 109/68 08/10/21 19:54 Pulse Ox 93 08/10/21 19:54 Body Mass Index 29.2 VITAL SIGNS: Reviewed. GENERAL: Well developed, well nourished, in no acute distress. HEAD: Normocephalic/atraumatic EYES: PERRLA, EOMI OROPHARYNX: no oral lesions noted, posterior pharynx clear NECK: Supple, no adenopathy LUNGS: Normal breath sounds. No adventitious sounds or accessory muscle use. SpO2<96> CARDIOVASCULAR: Regular rate and rhythm without noted murmurs ABDOMEN: Soft, non-tender, non-distended with bowel sounds. SKIN: Inspection of the skin reveals no rashes NEUROLOGIC: Alert and oriented x 4. Strength and sensation to light touch were grossly intact x 4. Course Course Course Narrative: 60-year-old female with history and clinical presentation consistent with suspected accidental overdose. Patient does state that she is sad and denies intent to hurt herself. Esme, from the care team, spoke with the patient as well as her daughter and has provided the patient with outpatient resources. Patient was provided IV fluids, repeat POC glucose was at a level manageable for home, and otherwise discharged home in stable condition with home Narcan. MDM - Overdose Lab Data Result diagrams: 08/10/21 18:55 08/10/21 18:55 Labs: Lab Results 08/10/21 08/10/21 08/10/21 Range/Units 18:55 18:55 18:55 WBC 14.4 H (4.8-10.8) X10*3/uL RBC 4.28 (4.20-5.50) X10*6/uL Hgb 13.5 (12.0-16.0) g/dl Hct 41.7 (37.0-47.0) % MCV 97.4 (80.0-98.0) fL MCH 31.5 (27.0-33.0) pg MCHC 32.4 (31.0-35.0) g/dl RDW 12.5 (11.0-16.0) % Plt Count 350 (160-400) X10*3/uL MPV 9.6 (9.4-12.3) fL Immature Gran % (Auto) 2.0 H (0.0-0.4) % Neut % (Auto) 71.9 (45-73) % Lymph % (Auto) 22.2 (20-40) % [place] % (Auto) 3.0 (2-11) % Eos % (Auto) 0.6 (0-4) % Baso % (Auto) 0.3 (0-2) % Lymph # (Auto) 3.2 (1.2-4.9) X10*3/uL [place] # (Auto) 0.4 (0.1-1.2) X10*3/uL Eos # (Auto) 0.1 (0.0-0.4) X10*3/uL Baso # (Auto) 0.0 (0.0-0.2) X10*3/uL Abs Immat Gran (auto) 0.29 H (0.00-0.03) X10*3/uL Absolute Neuts (auto) 10.4 H (2.0-8.3) x10*3/uL Absolute Nucleated RBC 0.000 (0.0-0.012) X10*3/uL Nucleated RBC % (auto) 0.0 (0.0-0.2) /100WBC Sodium 142 (135-145) mmol/L Potassium 4.4 (3.3-5.1) mmol/L Chloride 108 (96-108) mmol/L Carbon Dioxide 19 L (22-29) mmol/L Anion Gap 19 (12-20) BUN 16 D (9-16) mg/dL Creatinine 1.24 (0.5-1.4) mg/dL Estim Creat Clear Calc 46.2 Estimated GFR 44 Random Glucose 352 H* (60-115) mg/dL Calcium 9.9 (8.4-10.2) mg/dL Total Bilirubin < 0.2 (0.0-1.0) mg/dL AST 44 H D (5-31) U/L ALT 47 H (0-31) U/L Alkaline Phosphatase 123 H (39-117) U/L Total Protein 7.7 (6.5-8.0) g/dL Albumin 4.8 (3.5-5.0) g/dL Urine Color Urine Appearance Urine pH (5.0-8.0) Ur Specific [place] (1.005-1.025) Urine Protein (NEG-TRACE) MG/DL Urine Glucose (UA) (NEG) MG/DL Urine Ketones (NEG) MG/DL Urine Blood (NEG) Urine Nitrite (NEG) Ur Leukocyte Esterase (NEG) Urine RBC (0) /HPF Urine WBC (0-4) /HPF Ur Squamous Epith Cells /LPF Urine Bacteria /LPF Urine Opiates Screen (Not Detect) Urine Fentanyl Screen (Not Detect) Ur Barbiturates Screen (Not Detect) Ur Phencyclidine Scrn (Not Detect) Ur Amphetamines Screen (Not Detect) U Benzodiazepines Scrn (Not Detect) Urine Cocaine Screen (Not Detect) U Marijuana (THC) Screen (Not Detect) Ethyl Alcohol < 10 mg/dL 11/25/21 11/25/21 Range/Units 18:59 18:59 WBC (4.8-10.8) X10*3/uL RBC (4.20-5.50) X10*6/uL Hgb (12.0-16.0) g/dl Hct (37.0-47.0) % MCV (80.0-98.0) fL MCH (27.0-33.0) pg MCHC (31.0-35.0) g/dl RDW (11.0-16.0) % Plt Count (160-400) X10*3/uL MPV (9.4-12.3) fL Immature Gran % (Auto) (0.0-0.4) % Neut % (Auto) (45-73) % Lymph % (Auto) (20-40) % [place] % (Auto) (2-11) % Eos % (Auto) (0-4) % Baso % (Auto) (0-2) % Lymph # (Auto) (1.2-4.9) X10*3/uL [place] # (Auto) (0.1-1.2) X10*3/uL Eos # (Auto) (0.0-0.4) X10*3/uL Baso # (Auto) (0.0-0.2) X10*3/uL Abs Immat Gran (auto) (0.00-0.03) X10*3/uL Absolute Neuts (auto) (2.0-8.3) x10*3/uL Absolute Nucleated RBC (0.0-0.012) X10*3/uL Nucleated RBC % (auto) (0.0-0.2) /100WBC Sodium (135-145) mmol/L Potassium (3.3-5.1) mmol/L Chloride (96-108) mmol/L Carbon Dioxide (22-29) mmol/L Anion Gap (12-20) BUN (9-16) mg/dL Creatinine (0.5-1.4) mg/dL Estim Creat Clear Calc Estimated GFR Random Glucose (60-115) mg/dL Calcium (8.4-10.2) mg/dL Total Bilirubin (0.0-1.0) mg/dL AST (5-31) U/L ALT (0-31) U/L Alkaline Phosphatase (39-117) U/L Total Protein (6.5-8.0) g/dL Albumin (3.5-5.0) g/dL Urine Color YELLOW Urine Appearance CLEAR Urine pH 5.5 (5.0-8.0) Ur Specific [place] 1.025 (1.005-1.025) Urine Protein 1+ H (NEG-TRACE) MG/DL Urine Glucose (UA) >=1000 H (NEG) MG/DL Urine Ketones NEG (NEG) MG/DL Urine Blood 1+ H (NEG) Urine Nitrite NEG (NEG) Ur Leukocyte Esterase NEG (NEG) Urine RBC 1-4 (0) /HPF Urine WBC 0 (0-4) /HPF Ur Squamous Epith Cells 1+ /LPF Urine Bacteria 1+ /LPF Urine Opiates Screen Not Detected (Not Detect) Urine Fentanyl Screen POSITIVE H (Not Detect) Ur Barbiturates Screen Not Detected (Not Detect) Ur Phencyclidine Scrn Not Detected (Not Detect) Ur Amphetamines Screen Not Detected (Not Detect) U Benzodiazepines Scrn Not Detected (Not Detect) Urine Cocaine Screen Not Detected (Not Detect) U Marijuana (THC) Screen POSITIVE H (Not Detect) Ethyl Alcohol mg/dL ECG Data Attestation: I personally reviewed and interpreted this ECG as follows: Prior ECG tracings: available for review (11/26/2020 no acute changes on comparison) Interpretation: Sinus tachycardia, HR-113, no STEMI, AK/QRS/QTC is within normal limits. Discharge Plan Discharge Clinical Impression: Overdose, Hyperglycemia Patient Disposition: Home, Self-Care Instructions: Diabetic Hyperglycemia (ED), Adult Overdose (ED) Additional Instructions: 1. Resume all home medications as prescribed. Return to the ER for worsening symptoms. Prescriptions: No Action cholecalciferol (vitamin D3) 25 mcg (1,000 unit) capsule 25 mcg PO DAILY 90 Days Qty: 90 RF: 3 aspirin 81 mg tablet,delayed release (DR/EC) 81 mg PO DAILY Qty: 90 RF: 3 lisinopril 20 mg tablet 20 mg PO DAILY 90 Days Qty: 90 RF: 0 levocetirizine 5 mg tablet 5 mg PO DAILY 30 Days Qty: 30 RF: 2 meclizine 12.5 mg tablet 12.5 mg PO DAILY PRN (Reason: motion sickness) Qty: 30 RF: 0 acetaminophen [Mapap Arthritis Pain] 650 mg tablet extended release 650 mg PO Q12H PRN (Reason: pain) 90 Days Qty: 180 RF: 0 omeprazole 20 mg capsule,delayed release(DR/EC) 20 mg PO DAILY Qty: 90 RF: 0 paroxetine HCl 40 mg tablet 40 mg PO QAM 90 Days Qty: 90 RF: 0 oxybutynin chloride 10 mg tablet extended release 24hr 1 tab PO DAILY RF: 0 magnesium oxide 400 mg magnesium capsule 400 mg PO DAILY RF: 0 trazodone 50 mg tablet 25 mg PO BEDTIME RF: 0 cyclobenzaprine 10 mg tablet 10 mg PO BEDTIME PRN (Reason: muscle spasm) 90 Days Qty: 90 RF: 0 alendronate 70 mg tablet 70 mg PO QWEEK Qty: 14 RF: 3 Referrals: Ema Perry MD [Primary Care Provider] - 2 days
[2021-08-10 19:27] LABS: Alanine Aminotransferase 47 U/L (0-31); Albumin Level 4.8 g/dL (3.5-5.0); Alkaline Phosphatase 123 U/L (39-117); Anion Gap 19 (12-20); Aspartate Amino Transferase 44 U/L (5-31); Bilirubin Total < 0.2 mg/dL (0.0-1.0); Blood Urea Nitrogen 16 mg/dL (9-16); Calcium 9.9 mg/dL (8.4-10.2); Carbon Dioxide 19 mmol/L (22-29); Chloride 108 mmol/L (96-108); Creatinine Clr Calc Pharmacy 46.2; Estimated Glomerular Filt Rate 44; Glucose Random 352 mg/dL (60-115); Potassium 4.4 mmol/L (3.3-5.1); Sodium 142 mmol/L (135-145); Total Protein 7.7 g/dL (6.5-8.0)
[2021-08-10 19:39] LABS: Amphetamine Screen Urine Not Detected (Not Detect); Barbiturates, Urine Not Detected (Not Detect); Benzodiazepines Screen Urine Not Detected (Not Detect); Cannabinoid Screen Urine POSITIVE (Not Detect); Cocaine Screen Urine Not Detected (Not Detect); Fentanyl, urine POSITIVE (Not Detect); Opiate Screen Urine Not Detected (Not Detect); Phencyclidine Screen Urine Not Detected (Not Detect)
[2021-08-10] MEDS: 0.9 % Sodium Chloride 2,000 ML 999 ML IV (19:51)
[2021-08-10 19:54] VITALS: BP 109/68; PULSE 110; RESP 18; TEMP 36.6; O2SAT 93
--- NOTE | 2021-08-10 20:23 | HO.SUDE ---
CARE team met with pt to complete SUDE and screen for crisis intervention. Tox screen positive for marijuana and fentanyl. Pt denied having used any substances other than marijuana and denied wanting to harm herself or to be . She remarked If I was going to feel that way, it would be because of this pain. Pt's daughter shared that she has a history of cocaine use and had some time in recovery, however has been using again recently. There is no reported history of detox or MAT, but she has been to rehab in the past. Tox screen results were discussed, which her daughter stated that the marijuana must have been laced and she intends to talk to her brother, who lives with the pt, to find out where she has been getting the marijuana from. This proposal manager writer discussed possible treatment and intervention options, and explained that detox is not an option given the reported substances used/pattern of use, but described IOP and peer recovery as options for support. Pt's daughter was provided with information for [facility] in [place] and [facility] (peer recovery center). ED attending physician updated re: outcomes and recommendations.
[2021-08-10] MEDS: Naloxone HCl Nasal TAKE HOME 4 MG SPRAY NOSTRILALT (21:23)
[2021-08-10 23:17] LABS: Glucose, Whole Blood 110 mg/dL (60-115)
== END 2021-08-10 22:28 | disposition home or self-care (01) ==
PROVIDERS: Emergency Provider Student in an Organized Health Care Education/Training Program; PCP Internal Medicine
DX: T40.5X1A Poisoning by cocaine, accidental (unintentional), initial encounter (principal); E13.65 Other specified diabetes mellitus with hyperglycemia; Y92.009 Unspecified place in unspecified non-institutional (private) residence as the place of occurrence of the external cause; Z79.899 Other long term (current) drug therapy; Z71.51 Drug abuse counseling and surveillance of drug abuser
CPT/HCPCS: 36415; 80053; 80307; 81001; 82077; 82947; 85025; 93005; 96360; 96361; 99283; 99284

== ENCOUNTER 2021-08-19 15:41 | Emergency (ER) | payer MEDICARE, MEDICAID, SELFPAY | END 2021-08-19 17:02 | disposition left against medical advice (07) | PROVIDERS: Emergency Provider Emergency Medicine; PCP Internal Medicine | DX: M79.606 Pain in leg, unspecified (principal) ==

== ENCOUNTER 2021-09-29 22:55 | Emergency (ER) | payer OTHER, SELFPAY ==
--- NOTE | ~2021-09-29 | XR_ITS ---
EXAMINATION: X-RAY RIGHT KNEE X-RAY RIGHT WRIST CLINICAL INFORMATION: Pain. COMPARISON: No similar priors. TECHNIQUE: 4 views of the right knee and 4 views of the right wrist were obtained. FINDINGS: Right knee: No evidence of acute fractures or malalignment. No significant degenerative changes. Small joint effusion. Right wrist: Distal radial fracture with intra-articular extension, impaction and angulation. On lateral views, there is approximately 1.3 cm of limb foreshortening and up to 1.5 cm of anterior displacement of the distal fracture fragment. Questionable nondisplaced fracture of the ulnar styloid with a persistent ulnar styloid ossicle. No other fractures. Carpal rows are maintained. XR/XR knee RT 3V IMPRESSION: Right knee: No acute fractures or malalignment. A small joint effusion. Right wrist: Displaced, impacted and angulated distal radial fracture with intra-articular extension. Questionable nondisplaced ulnar styloid fracture.
--- NOTE | ~2021-09-29 | XR_ITS ---
EXAMINATION: X-RAY RIGHT KNEE X-RAY RIGHT WRIST CLINICAL INFORMATION: Pain. COMPARISON: No similar priors. TECHNIQUE: 4 views of the right knee and 4 views of the right wrist were obtained. FINDINGS: Right knee: No evidence of acute fractures or malalignment. No significant degenerative changes. Small joint effusion. Right wrist: Distal radial fracture with intra-articular extension, impaction and angulation. On lateral views, there is approximately 1.3 cm of limb foreshortening and up to 1.5 cm of anterior displacement of the distal fracture fragment. Questionable nondisplaced fracture of the ulnar styloid with a persistent ulnar styloid ossicle. No other fractures. Carpal rows are maintained. XR/XR wrist RT min 3V IMPRESSION: Right knee: No acute fractures or malalignment. A small joint effusion. Right wrist: Displaced, impacted and angulated distal radial fracture with intra-articular extension. Questionable nondisplaced ulnar styloid fracture.
[2021-09-29 23:01] VITALS: BP 112/76; PULSE 87; RESP 20; TEMP 36.1; O2SAT 96; BMI 29.2
[2021-09-30 01:31] VITALS: BP 143/88; PULSE 79; RESP 16; O2SAT 99
[2021-09-30] MEDS: ondansetron HCL 4 MG/2 ML VIAL IVPUSH (02:14)
[2021-09-30 02:15] VITALS: RESP 16
[2021-09-30] MEDS: Morphine Sulfate 4 MG/ML CARTRIDGE IVPUSH (02:15)
--- NOTE | 2021-09-30 02:25 | ED.FALL ---
HPI - Fall General Chief Complaint: Fall Stated Complaint: fell hurt wrist and rt knee pain Time Seen by Provider: 09/30/21 01:57 Source: patient Mode of arrival: ambulatory Limitations: no limitations History of Present Illness HPI Narrative: 60-year-old female who presents emergency department for evaluation of fall with injury to her right wrist. Patient states she has a history of vertigo for at least 2 years. She states she takes meclizine with only minimal relief for vertigo. She states she was at her friend's apartment when she had an episode of vertigo that caused her to fall on outstretched right arm. She developed immediate pain in her right wrist with swelling in limited ability to move her wrist. She states the right wrist pain is a constant, sharp pain which is 10/10 and worse with movement. She also states that she has been having pain in her right hip which is consistent with her sciatica. She states that this pain is a constant, sharp pain which is moderate intensity and causes her to limp and she believes that this may have also caused her to fall. She denied any other injury Related Data Home Medications Medication Instructions Recorded Confirmed oxybutynin chloride 10 mg 1 tab PO DAILY 11/25/20 05/26/21 tablet,extended release 24 hr magnesium oxide 400 mg PO DAILY 01/27/21 05/26/21 trazodone 50 mg tablet 25 mg PO BEDTIME 05/26/21 Previous Rx's Medication Instructions Recorded cholecalciferol (vitamin D3) 25 25 mcg PO DAILY 90 Days #90 cap 08/07/ mcg (1,000 unit) capsule aspirin 81 mg tablet,delayed 81 mg PO DAILY #90 tab 02/16/21 release cyclobenzaprine 10 mg tablet 10 mg PO BEDTIME PRN 90 Days #90 05/26/21 tab alendronate 70 mg tablet 70 mg PO QWEEK #14 tab 06/15/21 levocetirizine 5 mg tablet 5 mg PO DAILY 30 Days #30 tab 06/19/21 acetaminophen 650 mg 650 mg PO Q12H PRN 90 Days #180 tab 07/14/21 tablet,extended release (Mapap Arthritis Pain) omeprazole 20 mg capsule,delayed 20 mg PO DAILY #90 cap 07/17/21 release paroxetine HCl 40 mg tablet 40 mg PO QAM 90 Days #90 tab 07/18/21 lisinopril 20 mg tablet 20 mg PO DAILY 90 Days #90 tab 08/24/21 meclizine 12.5 mg tablet 12.5 mg PO DAILY PRN #30 tab 09/12/21 morphine 15 mg immediate release 15 mg PO Q4-6H PRN #14 tab 09/30/21 tablet ondansetron 4 mg disintegrating 4 mg PO Q6-8H PRN #14 tab 09/30/21 tablet Allergies Allergy/AdvReac Type Severity Reaction Status Date / Time oxycodone [OXYCODONE] Allergy Intermediate N/V, GI Verified 09/29/21 23:09 PAIN acetaminophen [Percocet] AdvReac Unknown vomiting Verified 09/29/21 23:09 Review of Systems Review of Systems: Yes all other systems are reviewed and are negative [facility] Past Medical History Medical History Arthrosis Chronic GERD Depression, major, recurrent Diabetes 1.5, managed as type 2 Elevated troponin level not due myocardial infarction Environmental allergies Fall Hypertension, essential Lipid disorder Tobacco abuse Urinary incontinence in female Surgical History History of hysteroscopy History of open reduction and internal fixation (ORIF) procedure Hx of cholecystectomy Family History Family History Father History of heart attack HTN (hypertension) CVD (cardiovascular disease) Diabetes mellitus Mother Alzheimer's disease Sister Breast cancer Sister Lung cancer Uterine cancer Sister Colon cancer Social History Social History Household Members: Children Housing: Apartment Do you presently have visiting nurse or other home services: Yes Alcohol intake: current Alcohol intake frequency: holidays/special occasions only Cigarettes Per Day: 5 Years Smoked: 45 Substance Use Type: Marijuana Advance Directives: No service: No Current occupational status: disabled Physical Exam Vital Signs: Vital Signs: Last Vital Signs Temp 96.9 F 09/29/21 23:01 Pulse 79 09/30/21 01:31 Resp 16 09/30/21 02:15 BP 143/88 H 09/30/21 01:31 Pulse Ox 99 09/30/21 01:31 BMI result Body Mass Index 29.2 Const: General: cooperative, no acute distress, well developed, alert and awake Orientation/consciousness: oriented to person and oriented to place HENMT: Head: Yes normal to inspection, Yes normocephalic and Yes atraumatic Ears: external ears normal Face and sinus: Yes normal facial exam Mouth: Normal oral and palatal mucosa present Throat: Yes posterior oropharynx normal Eyes: General: appearance normal, both eyes and all related structures Neck: Neck: Yes normal visual inspection, Yes no lymphadenopathy, Yes trachea midline and Yes supple Chest: Chest palpation & inspection: normal inspection of the chest and normal palpation of entire chest wall Resp: Effort & Inspection: normal respiratory effort Neuro: General: oriented to person and oriented to place Cranial nerves: Yes CN's II-XII intact bilaterally Cognition (Neuro): normal cognition Extrem: Other: Patient has ecchymosis and soft tissue swelling over her right wrist and distal forearm, she has symmetric pulses, normal light touch to her fingers, she is able to move her fingers without any limitation however does cause pain in her wrist area. The patient does have pain with palpation over her right lateral hip with a positive right straight leg raise. Patient does have tenderness with palpation of her right knee with full range of motion. Psych: Appearance: grossly normal Mental Status: mental status grossly normal Speech and movement: Normal speech and movement present Affect: normal affect Course Course Course Narrative: 60-year-old female who presents emergency department for evaluation vertigo causing her to fall on an outstretched right wrist. She also complained of right knee pain secondary to the fall. The patient also complained of right hip pain consistent with her sciatica x2 days. Physical examination did reveal an obvious deformity of her right wrist. X-rays were obtained. Right knee x-ray was unremarkable. Right wrist revealed a displaced impacted angulated distal radius fracture with intra-articular extension and a nondisplaced ulnar styloid fracture. On my review these x-rays, given the impacted comminuted nature of the distal radius I do not think that this can be reduced in the in heard emergency department. I did discuss this with the patient . The patient was treated with morphine 4 mg IV and Zofran 4 mg IV. She was placed in a padded sugar-tong splint. After the splint was applied her hand remained neurovascularly intact. The patient will be discharged home with a prescription for morphine and Zofran. She was given the name of our on-call orthopedic surgeon advised to contact them on 10/02/2021 to make a follow-up appointment within 3-4 days. She was given printed and verbal instructions and discharged home. Discharge Plan Discharge Clinical Impression: Vertigo Fall Qualifiers: Encounter type: initial encounter Qualified Code(s): W19.XXXA - Unspecified fall, initial encounter Closed fracture of distal end of right radius with ulna Qualifiers: Encounter type: initial encounter Qualified Code(s): S52.501A - Unspecified fracture of the lower end of right radius, initial encounter for closed fracture Patient Disposition: Home, Self-Care Instructions: Wrist Fracture in Adults (ED) Additional Instructions: The x-ray of your right knee was normal, you have no broken bone The x-ray of your right wrist and forearm revealed a broken bone of the distal radius and distal ulnar. The distal radial fracture as broken up into several pieces and is impacted. This type of fracture will most likely need a surgical repair by our orthopedic doctor. Please call our on-call orthopedic doctor's office,, Dr. Campos on Saturday ( this is a holiday but they may be open) or Saturday for a follow-up within the next 2-4 days Keep the splint on until your are re-checked by the orthopedic group, do not get the splint wet. Take ibuprofen 200 mg pills, 2 pills every 6 hours as needed for pain. Take Tylenol (acetaminophen) 500 mg pills, 2 pills every 4-6 hours as needed for pain. For pain not relieved by ibuprofen or Tylenol take morphine 15 mg pills, 1 pill every 4 hours as needed for pain. Do not drive or work while taking this medication since they can cause sleepiness. Morphine is a narcotic medication that can be addicting. If you are concerned about addiction you can ask the pharmacist for less pills or do not get this prescription filled. Follow-up with our orthopedic doctor in 3-4 days. Please return to the emergency department if your symptoms get worse or if you develop any symptoms that are concerning to you. Prescriptions: New morphine 15 mg tablet 15 mg PO Q4-6H PRN (Reason: pain) Qty: 14 RF: 0 ondansetron 4 mg tablet,disintegrating 4 mg PO Q6-8H PRN (Reason: nausea and vomiting) Qty: 14 RF: 0 No Action cholecalciferol (vitamin D3) 25 mcg (1,000 unit) capsule 25 mcg PO DAILY 90 Days Qty: 90 RF: 3 aspirin 81 mg tablet,delayed release (DR/EC) 81 mg PO DAILY Qty: 90 RF: 3 levocetirizine 5 mg tablet 5 mg PO DAILY 30 Days Qty: 30 RF: 2 acetaminophen [Mapap Arthritis Pain] 650 mg tablet extended release 650 mg PO Q12H PRN (Reason: pain) 90 Days Qty: 180 RF: 0 omeprazole 20 mg capsule,delayed release(DR/EC) 20 mg PO DAILY Qty: 90 RF: 0 paroxetine HCl 40 mg tablet 40 mg PO QAM 90 Days Qty: 90 RF: 0 lisinopril 20 mg tablet 20 mg PO DAILY 90 Days Qty: 90 RF: 0 meclizine 12.5 mg tablet 12.5 mg PO DAILY PRN (Reason: motion sickness) Qty: 30 RF: 2 oxybutynin chloride 10 mg tablet extended release 24hr 1 tab PO DAILY RF: 0 magnesium oxide 400 mg magnesium capsule 400 mg PO DAILY RF: 0 trazodone 50 mg tablet 25 mg PO BEDTIME RF: 0 cyclobenzaprine 10 mg tablet 10 mg PO BEDTIME PRN (Reason: muscle spasm) 90 Days Qty: 90 RF: 0 alendronate 70 mg tablet 70 mg PO QWEEK Qty: 14 RF: 3 Referrals: Jonathan Campos MD [Physician] - 5 days
[2021-09-30 02:45] VITALS: BP 137/86; PULSE 92; RESP 18; TEMP 37.1; O2SAT 96
--- NOTE | 2021-09-30 02:51 | PC.NURSE ---
This Tech applied a sugar tounge to pts right arm per . checked for splint placement. rn aware
== END 2021-09-30 02:47 | disposition home or self-care (01) ==
PROVIDERS: Emergency Provider Emergency Medicine Emergency Medical Services; PCP Internal Medicine
DX: S52.571A Other intraarticular fracture of lower end of right radius, initial encounter for closed fracture (principal); W18.30XA Fall on same level, unspecified, initial encounter; R42 Dizziness and giddiness; M25.461 Effusion, right knee; Z91.81 History of falling; I10 Essential (primary) hypertension; F17.200 Nicotine dependence, unspecified, uncomplicated; F12.90 Cannabis use, unspecified, uncomplicated; Y93.9 Activity, unspecified; Y92.039 Unspecified place in apartment as the place of occurrence of the external cause; Y99.9 Unspecified external cause status; E13.9 Other specified diabetes mellitus without complications
CPT/HCPCS: 29125; 73110; 73562; 96374; 96375; 99284; J2270; J2405

== ENCOUNTER → 2021-10-03 11:48 | Outpatient (BNVA) | payer OTHER, MEDICAID, SELFPAY | PROVIDERS: Visit Provider Physician Assistant | DX: S52.501A Unspecified fracture of the lower end of right radius, initial encounter for closed fracture (principal) | CPT/HCPCS: 99202 ==

== ENCOUNTER 2021-10-05 09:11 | Day surgery (SDC) | payer OTHER, MEDICAID, SELFPAY ==
--- NOTE | 2021-10-04 09:14 | HO.ANESPROP2 ---
Documented by User: Esme Ramirez NP 10/04/21 09:16 HPI - Anesthesia Eval Consult details Narrative: 60yo F for Right Radius Distal Fracture ORIF PMFSH Active Problems Active Problems: All Active Problems (Updated 10/03/21 @ 13:33 by Wanda Stanley PA-C) Fracture of right distal radius (Acute) Cocaine abuse (Acute) Postmenopausal bleeding (Acute) Osteoporosis (Acute) Well woman exam (Acute) Serum calcium elevated (Acute) LFT elevation (Acute) Menopausal state (Acute) Lipid disorder (Acute) Hypertension, essential (Acute) Medicare annual wellness visit, initial (Acute) HNP (herniated nucleus pulposus), lumbar (Acute) Back spasm (Acute) Ribs, multiple fractures (Acute) Environmental allergies (Acute) Arthrosis (Acute) Depression, major, recurrent (Acute) Tobacco abuse (Acute) Past Medical History Medical History Arthrosis Chronic GERD Depression, major, recurrent Diabetes 1.5, managed as type 2 Elevated troponin level not due myocardial infarction Environmental allergies Fall Hypertension, essential Lipid disorder Tobacco abuse Urinary incontinence in female Family History Family History Father History of heart attack HTN (hypertension) CVD (cardiovascular disease) Diabetes mellitus Mother Alzheimer's disease Sister Breast cancer Sister Lung cancer Uterine cancer Sister Colon cancer Surgical History Surgical History History of hysteroscopy History of open reduction and internal fixation (ORIF) procedure Hx of cholecystectomy Social History Social History Household Members: Children Housing: Apartment Do you presently have visiting nurse or other home services: Yes Alcohol intake: current Alcohol intake frequency: former alcohol drinker Patient Tobacco Use Status: Current everyday Tobacco user Tobacco use type: Cigarette Cigarette Packs Per Day: 5 Cigarettes Per Day: 100.0 Years Smoked: 45 Smoked in Last 30 Days: Yes Use of substances other than those prescribed or required for medical reasons: Yes Substance Use Type: Marijuana Substance Use Frequency: Weekly Have you been hit, kicked, punched, or otherwise hurt by someone within the past year? If so, by whom?: No Are you DNR?: No Advance Directives: No Advance Directives Information Provided: Yes Advance Directives on File: No Recently lost weight without trying: Unsure Nutrition Risks: No Nutritional Risk Patient : No service: No Current occupational status: retired Current occupation: [employer] Meds Allergies Allergy/AdvReac Type Severity Reaction Status Date / Time oxycodone [OXYCODONE] Allergy Intermediate N/V, GI Verified 10/03/21 12:09 PAIN acetaminophen [Percocet] AdvReac Unknown vomiting Verified 10/03/21 12:09 Home Medications Medication Instructions Recorded Confirmed Last Taken Type oxybutynin chloride 10 mg 1 tab PO DAILY 11/25/20 05/26/21 11/25/20 08:00 History tablet,extended release 24 hr magnesium oxide 400 mg PO DAILY 01/27/21 05/26/21 Unknown History trazodone 50 mg tablet 25 mg PO BEDTIME 05/26/21 Unknown History Exam Exam Date and Time: October 04, [id number] Pertinent Lab Results Pertinent Lab Results: Laboratory Tests 08/10/21 08/10/21 18:55 18:55 WBC 14.4 H Hgb 13.5 Hct 41.7 Plt Count 350 Sodium 142 Potassium 4.4 Chloride 108 Carbon Dioxide 19 L BUN 16 D Creatinine 1.24 Narrative Narrative: EKG 07/2021 Vent. Rate : 113 BPM ? ? Atrial Rate : 113 BPM ?? P-R Int : 170 ms? QRS Dur : 068 ms ? ? QT Int : 330 ms ? ? ? P-R-T Axes : 057 035 086 degrees ?? QTc Int : 452 ms ? Poor data quality Sinus tachycardia Nonspecific ST abnormality Inferior leads Lateral leads Abnormal ECG When compared with ECG of 26-NOV-2020 02:05, Vent. rate has increased BY? 42 BPM Assessment and Plan Assessment Anesthesia Assessment: Chart Reviewed Documented by User: Balbir Camarena MD 10/05/21 10:45 PMFSH Past Medical History Medical History Arthrosis Chronic GERD Depression, major, recurrent Diabetes 1.5, managed as type 2 Elevated troponin level not due myocardial infarction Environmental allergies Fall Hypertension, essential Lipid disorder Tobacco abuse Urinary incontinence in female Family History Family History Father History of heart attack HTN (hypertension) CVD (cardiovascular disease) Diabetes mellitus Mother Alzheimer's disease Sister Breast cancer Sister Lung cancer Uterine cancer Sister Colon cancer Family history of problems with anesthesia: No Surgical History Surgical History History of hysteroscopy History of open reduction and internal fixation (ORIF) procedure Hx of cholecystectomy History of Problems with Anesthesia: No Social History Social History Household Members: Children Housing: Apartment Do you presently have visiting nurse or other home services: Yes Alcohol intake: current Alcohol intake frequency: former alcohol drinker Patient Tobacco Use Status: Current everyday Tobacco user Tobacco use type: Cigarette Cigarette Packs Per Day: 5 Cigarettes Per Day: 100.0 Years Smoked: 45 Smoked in Last 30 Days: Yes Use of substances other than those prescribed or required for medical reasons: Yes Substance Use Type: Marijuana Substance Use Frequency: Weekly Have you been hit, kicked, punched, or otherwise hurt by someone within the past year? If so, by whom?: No Are you DNR?: No Advance Directives: No Advance Directives Information Provided: Yes Advance Directives on File: No Recently lost weight without trying: Unsure Nutrition Risks: No Nutritional Risk Patient : No service: No Current occupational status: retired Current occupation: R[employer] Meds Allergies Allergy/AdvReac Type Severity Reaction Status Date / Time oxycodone [OXYCODONE] Allergy Intermediate N/V, GI Verified 10/03/21 12:09 PAIN acetaminophen [Percocet] AdvReac Unknown vomiting Verified 10/03/21 12:09 Home Medications Medication Instructions Recorded Confirmed Last Taken Type oxybutynin chloride 10 mg 1 tab PO DAILY 11/25/20 05/26/21 11/25/20 08:00 History tablet,extended release 24 hr magnesium oxide 400 mg PO DAILY 01/27/21 05/26/21 Unknown History trazodone 50 mg tablet 25 mg PO BEDTIME 05/26/21 Unknown History Exam Airway Mallampati Class: II TM Dist: >3cm Neck ROM: Full Denture: Upper and Lower Assessment and Plan Assessment Anesthesia Assessment: Anesthesia Plan Discussed Final Anesthetic Review Family History of Problems with Anesthesia: No History of Problems with Anesthesia: No NPO: Yes ASA Class: II Final Preanesthetic Review: No Changes in Pt Med Stat, Meds/Allgs Chart Reviewed, Consent Obtained/Reviewed and Anes Risks/Benef Reviewed Patient Risk: Low Procedure Risk: Low Anesthetic Plan Anesthetic Plan: GA and Regional Block Disposition: Standard PACU
[2021-10-05] VITALS (7 sets, daily range): BP systolic 107–135; BP diastolic 62–98; PULSE 83–97; RESP 12–17; TEMP 36.2–36.7; O2SAT 97–100; BMI 28.7
--- NOTE | ~2021-10-05 | FL_ITS ---
EXAMINATION: XR FLUOROSCOPY WITH IMAGES CLINICAL INFORMATION: Fluoroscopy guidance ORIF COMPARISON: 09/29/2021 TECHNIQUE: Fluoroscopy time: 42.4 minutes DAP: [id number] mGycm2 Images: 4 FINDINGS: Plate and multiple screws through the distal radius across the fracture, bone alignments restored. FL/FL guidance in OR IMPRESSION: Intraoperative fluoroscopy and C-arm views ORIF distal radial fracture.
[2021-10-05 09:23] LABS: Glucose, Whole Blood 101 mg/dL (60-115)
[2021-10-05] MEDS: Lactated Ringers 1,000 ML 100 ML IVCONT (09:35)
[2021-10-05] MEDS: Scopolamine 1.5 MG PATCH.TD.3 TRANSDERMA (09:49)
--- NOTE | 2021-10-05 09:54 | PC.NURSE ---
0944 time out completed. block initiated by Dr. Camarena
--- NOTE | 2021-10-05 10:18 | MHC.SHP ---
Pre-Procedural Eval Section A Date of Service: 10/05/21 The patient is an INPATIENT: No Changes since office visit: No Cold of Flu in the past 2 weeks, No New Medical Problems, No Changes in Medication and No Patient answered all questions The History & Physical has been completed within 30 days and I have reviewed it.: Yes Section B Chief Complaint: fx of right distal radius Allergies: Allergies Allergy/AdvReac Type Severity Reaction Status Date / Time oxycodone [OXYCODONE] Allergy Intermediate N/V, GI Verified 10/03/21 12:09 PAIN acetaminophen [Percocet] AdvReac Unknown vomiting Verified 10/03/21 12:09 Plan I have reviewed the history and physical and performed a pertinent physical examination on my patient. No changes have occurred unless specified.
--- NOTE | 2021-10-05 10:18 | W.PM.OPN ---
Operative Note Operative Note Date of Service: 10/05/21 Narrative: Operative Note Narrative: Pre op diagnosis: 1. Right comminuted intra-articular distal radius fracture postop diagnosis: 1. Right comminuted intra-articular distal radius fracture 2. Right ulnar styloid fracture with DRUJ instability Procedure: 1. Right Distal radius fracture open reduction internal fixation, 2 part intra-articular 2. Right DRUJ closed reduction percutaneous pinning Surgeon: Kelsey Cook MD Anesthesia: Mac plus regional block Findings: displaced distal radius fracture. DRUJ instability identified fall of Implants: A 3 hole Accu Med volar locking plate, with 5 X 2.3 mm locking pegs/screws, and 3 3.5 mm cortical screws 0.054 K-wire Tourniquet time: 35 minutes EBL: 5.0 ml Specimen: None Drains: None Complications: None Disposition: Brought to the recovery room in stable condition Plan: Follow-up in 10-14 days for wound check, suture removal and postop radiographs The patient will be placed in either a [place] cast in supination. Anticipate K-wire removal at 4 weeks Postop. Encouraged no lifting of anything heavier than a cell phone. Please encourage active and passive range of motion of the digits. Follow-up at 4-5 weeks postop for repeat radiographs. Indications: The patient is a [age] year old woman with a right intra-articular distal radius fracture . The risks and benefits of operative treatment, including but not limited to risk of damage to blood vessels, nerves, tendons, infection, recurrence, persistent pain or numbness, incomplete resolution of preoperative symptoms, or need for further surgery were discussed with the patient and they wished to proceed with surgery. Procedure: Once consent was obtained patient was brought back to the operating suite and placed in the operating table in a supine position. A regional block was performed by the anesthesia team. Perioperative antibiotics and anesthesia was administered by the anesthesia team. A tourniquet was applied to the proximal aspect of the right upper extremity and the limb was prepped and draped in a standard surgical fashion. The limb was elevated exsanguinated with Esmarch bandage and the tourniquet inflated to 250 mm of mercury for a total tourniquet time of 35 minutes. The FluoroScan was used throughout the case to assess our reduction, and facilitate implant placement. A gentle closed reduction was 1st performed on the patient's right distal radius fracture. Was assessed radiographically before proceeding with the reduction internal fixation. I then made an 8 cm longitudinal incision over the distal aspect of the flexor carpi radialis tendon. The incision was made through the skin to the subcutaneous tissue using a 15. Blade. Then carefully dissected down to flexor carpi radialis tendon she tenotomy scissors. The FCR tendon sheath was then incised longitudinally using tenotomy scissors under direct visualization. The FCR tendon was then retracted ulnarly. I then made a longitudinal incision in the volar forearm fascia through the floor of FCR tendon sheath using tenotomy scissors under direct visualization. I identified the interval between the radial artery and the flexor tendons. This interval was developed further with my index finger, releasing some of the muscular fibers of the flexor pollicis longus. A dull weatlander retractor was then placed. I then created an ulnarly based flap of the pronator quadratus by releasing the radial and distal edges using a 15. Blade. A Iqbal elevator was used to elevate the pronator quadratus from the volar surface of the distal radius. This then revealed to us our distal radius fracture. An open reduction was then performed on our distal radius fracture. I then placed a short narrow 3 hole Accu Med volar locking plate on the volar surface of the distal radius. I placed a single K-wire through the distal aspect of the plate and into the distal radius. This was assessed using fluoroscopic images. I was satisfied with the placement of our plate. I then placed 5 X 2.3 mm locking screws/pegs in the distal aspect of the plate and distal radius by 1st drilling bicortically with a 1.8 mm drill bit, measuring with a depth gauge, and placing the appropriate length locking screws/pegs. The placement of our plate and screws was then assessed again using fluoroscopic images. The once satisfied with the placement of the volar locking plate and screws on the distal aspect of the distal radius, the plate was then reduced to the shaft of the radius. I then placed 3 3.5 mm cortical screws to the proximal aspect of the plate and into the shaft of the radius. This was done by 1st drilling bicortically with a 2.8 mm drill bit, measuring with a depth gauge, and placing the appropriate length screw. Final radiographs were then obtained. she has a fracture through the base of the ulnar styloid. The DRUJ was assessed and found to be rather lax on exam. The DRUJ was reduced as the wrist was placed in supination. I then passed a 0.054 K-wire through the ulnar styloid, across the DRUJ and across the width of the distal radius. I was satisfied with our reduction and placement of all implants. At this point the wound was irrigated with normal saline. The pronator quadratus was reduced back over the volar locking plate using some 3-0 Vicryl suture material. The tourniquet was then deflated and hemostasis was obtained with a brief period of local pressure and bipolar monopolar electrocautery. The subcutaneous layer was then reapproximated using some 4-0 Vicryl suture, and the skin edges were reapproximated using some 5 0 Prolene suture. The wound was then infiltrated with some 1% lidocaine with epinephrine postop pain control. A sterile dressing and a Sugar-tong splint allowing for active flexion and extension of the digits was applied. The patient appears to have tolerated the procedure well and with no complications. All digits were well vascularized conclusion of the case.
[2021-10-05] MEDS: ondansetron HCL 4 MG/2 ML VIAL IVPUSH (12:08)
== END 2021-10-05 14:30 | disposition home or self-care (01) ==
PROVIDERS: PCP Internal Medicine; Visit Provider Orthopaedic Surgery
PROC: (CPT 25608; principal; 2021-10-05 10:30)
DX: S52.571A Other intraarticular fracture of lower end of right radius, initial encounter for closed fracture (principal); S52.611A Displaced fracture of right ulna styloid process, initial encounter for closed fracture; R42 Dizziness and giddiness; W19.XXXA Unspecified fall, initial encounter; Y93.9 Activity, unspecified; Y92.9 Unspecified place or not applicable; Y99.8 Other external cause status; I10 Essential (primary) hypertension; E13.9 Other specified diabetes mellitus without complications; F33.9 Major depressive disorder, recurrent, unspecified; Z79.899 Other long term (current) drug therapy; Z88.8 Allergy status to other drugs, medicaments and biological substances; F17.210 Nicotine dependence, cigarettes, uncomplicated; F12.90 Cannabis use, unspecified, uncomplicated
CPT/HCPCS: 25608; 25651; 82947; C1713; C1769; J0690; J1100; J2250; J2370; J2405; J3010

== ENCOUNTER 2021-10-18 08:19 | Outpatient (REF) | payer OTHER, MEDICAID, SELFPAY ==
--- NOTE | ~2021-10-18 | XR_ITS ---
EXAMINATION: XR WRIST, RIGHT CLINICAL INFORMATION: Pain in right wrist. COMPARISON: None TECHNIQUE: PA, lateral, and oblique views of the right wrist. FINDINGS: There is a distal radial fracture stabilized with volar metallic plate and screws. The fracture fragment is in alignment. The soft tissues are normal. The radioulnar carpal joint space is maintained normal. The intercarpal joint space is normal. There is an ulnar styloid process fracture, unchanged. The soft tissues are normal. XR/XR wrist RT min 3V IMPRESSION: Stabilized distal radial healing fracture with volar plate and screws with fracture fragment in alignment. There is a displaced ulnar styloid process fracture, unchanged to previous study.
== END 2021-10-18 08:20 | disposition home or self-care (01) ==
LOC: HO.HOSX 08:19
PROVIDERS: Visit Provider Orthopaedic Surgery
DX: S52.501D Unspecified fracture of the lower end of right radius, subsequent encounter for closed fracture with routine healing (principal); M25.331 Other instability, right wrist
CPT/HCPCS: 73110; 99212

== ENCOUNTER 2021-11-08 09:55 | Outpatient (REF) | payer OTHER, MEDICAID, SELFPAY ==
--- NOTE | ~2021-11-08 | XR_ITS ---
EXAMINATION: XR WRIST, RIGHT CLINICAL INFORMATION: Right wrist pain. COMPARISON: 10/18/2021 and 09/29/2021. TECHNIQUE: PA, lateral, and oblique views of the right wrist. FINDINGS: Patient status post previous intraoperative repair of distal right radial fracture and ulnar styloid fracture. Since previous study a K wire between the radius and ulna has been removed. There is plate and screw fixation of the distal radial intra-articular comminuted fracture. Alignment appears unchanged. There appears be some degree of interval healing with some increased periosteal new bone formation seen about the dorsum of the distal radius. Fracture lines are still evident. The ulnar styloid fracture does not show any evidence of bony union. XR/XR wrist RT min 3V IMPRESSION: Stable alignment of the right wrist as described.
== END 2021-11-08 09:56 | disposition home or self-care (01) ==
LOC: HO.HOSX 09:55
PROVIDERS: Visit Provider Orthopaedic Surgery
DX: S52.501D Unspecified fracture of the lower end of right radius, subsequent encounter for closed fracture with routine healing (principal); M25.331 Other instability, right wrist
CPT/HCPCS: 73110; 99212

== ENCOUNTER 2021-12-21 11:00 | Outpatient (RCR) | payer OTHER, SELFPAY ==
--- NOTE | 2021-11-23 13:18 | MHC.OT.OEV ---
[address] [phone] F: [phone] Occupational Therapy Evaluation Diagnosis: S/P R DISTAL RADIUS ORIF Date of Onset: 09/30/21 Date of Surgery: 10/05/21 Attending Provider: Kelsey Mason Prescribed Treatment: EVAL AND TREAT History of Current Condition: FRACTURED RIGHT WRIST AFTER STANDING UP FROM BED AND RIGHT KNEE BUCKLED UNDER HER, FELL TO THE GROUND.HX VERTIGO. X-rays obtained from the ER are available for review that were obtained on 09/30/2021 and reveal a comminuted right distal radius fracture as well as evidence of a prior fracture to the ulnar styloid. UNDERWENT RIGHT DISTAL RADIUS ORIF 10/05/[address] MASON. LANDON ALSO PINNED IN SUPINATION DUE TO INSTABILITY. KWIRE REMOVED 11/05/21. MUNSTER CAST D/C 11/08/21. Significant Medical History: VERTIGO, ARTHRITIS, B/L CTS, TYPE II DM, DEPRESSION, TOB USE Precautions/Contraindications: POST OP 10/05/21, FALL RISK Patient Goals: TO BE ABLE TO DO EVERYTHING THAT USED TO Hand Dominance: Right QuickDASH Score: 75% Prior Level of Function and Occupation Self Care, Employment, Leisure: UNEMPLOYED. IND ADLs, LIGHT IADLs. RECEIVES [employer] SERVICES 10 HOURS/WEEK FOR CLEANING, TRANSPORTATION, MED MANAGEMENT, SHOWERS. HOBBIES: READING, TIDYING HOUSE, SHOPPING Living Situation, Family and/or Social Support: LIVES WITH SON; DAUGHTER IS H[employer] REMOVER AND VISITS DAILY Current Level of Function and Occupation Self Care, Employment, Leisure: MODERATE DIFFICULTIES WITH HOLDING UTENSILS FOR FEEDING SELF. DAUGTHER/ [employer] ASSISTING WITH BUTTONS, ZIPPERS AND SNAPS. EMERGING ABILITY TO WASH DISHES AND FOLD LAUNDRY. RUE FATIGUES WITH HOLDING BOOK. Sleep: OCCASIONALLY WAKES FROM PAIN IN RIGHT WRIST Driving: DOES NOT DRIVE Vision: BLURRED VISION AT TIMES Balance: HX VERTIGO AND FALLS Pain Assessment Pain Score: 4-10/10 Pain Scale Used: Numeric (0 - 10) Pain Location and Description: 4/10 AT REST 9-10/10 WITH USE R VOLAR PALM RADIATING TO MID-FOREARM Aggravating Factors: PULLING/PUSHING, Alleviating Factors: TAKING TYENOL FOR ARTHRITIS, IBUPROFEN NEEDED. OWNS HEATING PAD/ ICE PACK YET DOES NOT UTILIZE. Skin and Soft Tissue Assessment Skin and Soft Tissue: Swelling Comments: HEALED VOLAR WRIST SCAR, EDEMA TO R 1DI AND ULNAR WRIST Sensory Assessment Temperature: Light Touch: WFL Proprioception: Vibration: Comments: DENIES PARASTHESIA IN RUE Edema Assessment Upper Extremity: Right Impaired Lower Extremity: Comments: CIRCUMFERENCE OF WRIST, DISTAL TO US: RIGHT 16.6 CM, LEFT 14.5 CM Dexterity Assessment Dexterity: Right Impaired Comments: FUNCTIONAL DEXTERITY TEST: RIGHT 36 SECONDS, LEFT 30 SECONDS REPORTS MODERATE/SEVERE DIFFICULTIES WITH MANIPULATION OF ITEMS, BUTTONS/ZIPPERS Special Tests Comments: AROM(PROM) Strength Elbow Flexion: Extension: Pronation: R 90, L 95 Supination: R 70, L 90 Comments: ELBOW FLEX/EXT WNL Flexion: Extension: Pronation: Supination: Comments: Wrist Flexion: R 30, L 60 Extension: R 55, L 75 Ulnar Deviation: R 22, L 50 Radial Deviation: R 5, L 30 Comments: PAIN WITH UD AND FLEXION IN R WRIST Flexion: Extension: Ulnar Deviation: Radial Deviation: Comments: Thumb Thumb CMC Flexion: Thumb MCP Flexion: Thumb IP Flexion: Radial Abduction: Palmar Abduction: [place] (Kapandji 0-10): R 10/10, L 10/10 Comments: Digits Index MCP: PIP: DIP: Long MCP: PIP: DIP: Ring MCP: PIP: DIP: Small MCP: PIP: DIP: Comments: Gross Grasp: R 15, L 50 Lateral Pinch: R 9, L 12 Two-Point Pinch: R 8, L 10 Three-Jaw Stephen: Comments: Patient Education Primary Language: Deboner Required: No Current Knowledge: Understands information with skills for self-management Teaching Method: Demonstration Handouts Phone Call Verbal Education Needs Identified on Evaluation: ADL's Disease Information Equipment Use Exercise Pain Safety How did patient/family demonstrate learning? Patient demonstrates Patient verbalizes Family/SO demonstrates Family/SO verbalizes Needs reinforcement Barriers to Learning: Readiness for Learning: Accepting Who was educated? Patient Family/other Comments: DAUGHTER/[employer] PRESENT FOR OT EVAL/ TREAT Plan of Care Assessment: MS PENG IS 7 WEEKS POST OP R DISTAL RADIUS ORIF AND PINNING OF R DRUJ FOR INSTABILITY ON 10/05/21. SHE HAS BEEN GRADUALLY INCREASING HER ABILITY TO PARTICIPATE IN ADLs AND LIGHT IADLs. SHE STATES SHE IS INCONSISTENT WITH USE OF PREFAB WRIST ORTHOSIS AND HAS MODERATE PAIN. IT IS NOTED THAT SHE HAS EDEMA TO THE ULNAR SIDE OF HER RIGHT WRIST AND SENSITIVITY TO PALPATION. HER VOLAR SCAR IS WELL HEALED YET SOME HYPERSENSITIVITY IS REPORTED. A 75% LIMITATION IS REPORTED PER THE QUICK DASH ASSESSMENT. AT BASELINE, Pt RECEIVES [employer] SERVICES FOR IADLs INCLUDING MEDICATION MANAGEMENT, TRANSPORTATION, COOKING/ CLEANING AND SHOWERS NEEDED. ONGOING SKILLED OT IS WARRANTED TO ADDRESS ROM, STRENGTH, Pt/FAMILY EDUCATION, EDEMA MANAGEMENT, SCAR MOBILIZATION, PAIN MANAGEMENT, AND MAXIMIZE IND WITH ADLs. STG Duration: 2 WEEKS Short Term Goals: IND HEP IND USE OF HEAT/ICE IND EDEMA MANAGEMENT STRATEGIES IND JOINT PROTECTION INCREASE R WRIST FLEX 45 DEGREES LTG Duration: 4 WEEKS Nursing Home Goals: R GROSS GRASP >40 POUNDS R SUPINATION >85 DEGREES R WRIST FLEX >55 DEGREES B/L WRISTS, DISTAL TO U.S GROSSLY EQUAL IND SCAR DESENSITIZATION STRATEGIES AND SCAR MOBILIZATION IMPROVE COORDINATION TO A FUNCTIONAL LEVEL, PER FUNCTIONAL DEXTERITY TEST Frequency and Duration: The patient will be seen 2X/WEEK FOR 4 WEEKS Treatment Plan: Therapeutic Exercise Therapeutic Activity Home Exercise Program Splinting Neuro Re-ed Patient Education Desensitization/Sensory Re-ed Edema Control ADL Training Ultrasound NMES Iontophoresis Paraffin Fluidotherapy MHP Cold Packs Joint Mobilization Soft Tissue Mobilization Kinesiotaping Other (see comments) Electronically Signed By: SIDNEY SCHROEDER OTR/L Reviewed/agree with student documentation: N/A Therapist: Please sign and return to therapist, Thank you for your referral.
--- NOTE | 2022-01-03 10:38 | MHC.OT.DC ---
[address] [phone] F: [phone] Occupational Therapy Discharge Note Provider: Kelsey Cook Diagnosis: S/P R DISTAL RADIUS ORIF Date of Surgery: 10/05/21 Date of Evaluation: 11/23/21 Date of Discharge: 01/03/22 Treatments to Date: 4 Cancellations to Date: 0 No Shows to Date: 0 Discharge Status: Achieved Goals Improved Function Independent with HEP Discharge Summary: MS PENG HAS PROGRESSED WELL WITH HER OT SESSIONS. SHE REPORTS SHE CAN DO EVERYTHING. NO DIFFICULTY WITH DAILY ACTIVITIES BUT AVOIDING HEAVY LIFTING WITH HER LEFT HAND. OKAY WITH COOKING AND CLEANING WITH MODIFICATION FOR LIFTING A POT. OKAY OPENING TIGHT JAR WITH JAR GRIPPER. ROM AND STRENGTH WFL. D/C TO A HOME BASED PROGRAM AT THIS TIME. Electronically Signed By: KASEY LINN/Johnny Reviewed/agree with student documentation: N/A Therapist: Please Sign and return to therapist, thank you for your referral.
== END 2022-01-03 10:35 | disposition home or self-care (01) ==
LOC: HO.OT 11:00
PROVIDERS: PCP Internal Medicine; Visit Provider Orthopaedic Surgery
DX: S52.501D Unspecified fracture of the lower end of right radius, subsequent encounter for closed fracture with routine healing (principal); M25.331 Other instability, right wrist
CPT/HCPCS: 97110; 97166

== ENCOUNTER 2022-08-31 12:48 | Outpatient (REF) | payer OTHER, SELFPAY ==
[2022-08-31 14:57] LABS: Alanine Aminotransferase 44 U/L (0-31); Albumin Level 4.8 g/dL (3.5-5.0); Alkaline Phosphatase 95 U/L (39-117); Anion Gap 13 (12-20); Aspartate Amino Transferase 34 U/L (5-31); Bilirubin Total 0.3 mg/dL (0.0-1.0); Blood Urea Nitrogen 14 mg/dL (9-16); Carbon Dioxide 23 mmol/L (22-29); Chloride 107 mmol/L (96-108); Estimated Glomerular Filt Rate > 60; Glucose Random 85 mg/dL (60-115); Potassium 4.3 mmol/L (3.3-5.1); Sodium 139 mmol/L (135-145); Total Protein 7.4 g/dL (6.5-8.0)
[2022-08-31 14:59] LABS: Creatinine Urine 304.96 mg/dL; Microalbum/Creatinine Ratio Ur 7.5 ug/mg cr
[2022-09-01 18:43] LABS: LDL Cholesterol Direct 150 mg/dL (<100)
== END 2022-08-31 12:49 | disposition home or self-care (01) ==
LOC: HO.HMGCLDS 12:48
PROVIDERS: PCP Internal Medicine; Visit Provider Internal Medicine
DX: E13.9 Other specified diabetes mellitus without complications (principal)
CPT/HCPCS: 36415; 80053; 82043; 83721

== ENCOUNTER → 2023-02-05 11:03 | Outpatient (BNVA) | payer OTHER, SELFPAY | PROVIDERS: PCP Internal Medicine; Visit Provider Obstetrics & Gynecology ==

== ENCOUNTER 2023-02-05 13:07 | Outpatient (REF) | payer OTHER, SELFPAY ==
--- NOTE | ~2023-02-05 | XR_ITS ---
EXAMINATION: Bilateral hip x-ray CLINICAL INFORMATION: Pain COMPARISON: None. TECHNIQUE: 2 views of each hip FINDINGS: Left: Bone alignment is normal. No fracture or dislocation. Mild arthritis at the left hip joint with joint space narrowing and osteophyte formation. Soft tissues are unremarkable. Right: Bone alignment is normal. No fracture or dislocation. Mild arthritis at the right hip joint with joint space narrowing and osteophyte formation. Soft tissues are unremarkable. XR/XR hip LT min 2V IMPRESSION: Mild bilateral hip arthritis.
--- NOTE | ~2023-02-05 | XR_ITS ---
EXAMINATION: Bilateral knee x-ray CLINICAL INFORMATION: Pain COMPARISON: None. TECHNIQUE: 2 views of each knee FINDINGS: Bone alignment is normal. No fracture or dislocation. Normal joint spaces. No joint effusion. XR/XR knee RT 2V IMPRESSION: Unremarkable examination.
--- NOTE | ~2023-02-05 | XR_ITS ---
EXAMINATION: Bilateral hip x-ray CLINICAL INFORMATION: Pain COMPARISON: None. TECHNIQUE: 2 views of each hip FINDINGS: Left: Bone alignment is normal. No fracture or dislocation. Mild arthritis at the left hip joint with joint space narrowing and osteophyte formation. Soft tissues are unremarkable. Right: Bone alignment is normal. No fracture or dislocation. Mild arthritis at the right hip joint with joint space narrowing and osteophyte formation. Soft tissues are unremarkable. XR/XR hip RT min 2V IMPRESSION: Mild bilateral hip arthritis.
--- NOTE | ~2023-02-05 | XR_ITS ---
EXAMINATION: Bilateral knee x-ray CLINICAL INFORMATION: Pain COMPARISON: None. TECHNIQUE: 2 views of each knee FINDINGS: Bone alignment is normal. No fracture or dislocation. Normal joint spaces. No joint effusion. XR/XR knee LT 2V IMPRESSION: Unremarkable examination.
== END 2023-02-05 13:08 | disposition home or self-care (01) ==
LOC: HO.HMGCX 13:07
PROVIDERS: PCP Internal Medicine; Visit Provider Internal Medicine
DX: M25.551 Pain in right hip (principal); M25.552 Pain in left hip; M25.561 Pain in right knee; M25.562 Pain in left knee
CPT/HCPCS: 73502; 73560

== ENCOUNTER 2023-03-05 16:04 | Outpatient (REF) | payer OTHER, SELFPAY ==
--- NOTE | ~2023-03-05 | MM_ITS ---
EXAMINATION: MM SCREENING DIGITAL BREAST TOMOSYNTHESIS, BILATERAL CLINICAL INFORMATION: Screening. Asymptomatic. The lifetime risk of breast cancer based on the Tyrer-Cuzick Model is 9%. COMPARISON: Mammography: 06/06/2021, 11/26/2019, 10/15/2018 TECHNIQUE: Digital breast tomosynthesis is performed in both the craniocaudal and mediolateral oblique views along with computer-aided detection (CAD). Synthesized 2D images are generated from the tomosynthesis. FINDINGS: There are scattered areas of fibroglandular density (ACR BI-RADS breast composition Category b). Breast tissue composition borders on heterogeneously dense. There are no significant changes from prior exams. No developing density or architectural abnormality. Again, there are scattered incidental minor asymmetries. There are no significant masses, abnormal calcifications, or other abnormalities. The axilla are unremarkable. MM/MM tomosynthesis screening BI IMPRESSION: No mammographic evidence of malignancy. ASSESSMENT: BI-RADS 2: Benign RECOMMENDATION: Routine annual mammography screening. This patient's information was entered into a reminder system with a target due date for their next mammogram.
== END 2023-03-05 16:05 | disposition home or self-care (01) ==
LOC: HO.MAMMO 16:04
PROVIDERS: PCP Internal Medicine; Visit Provider Internal Medicine
DX: Z12.31 Encounter for screening mammogram for malignant neoplasm of breast (principal)
CPT/HCPCS: 77063; 77067

== ENCOUNTER 2023-06-05 10:52 | Outpatient (AMB) | payer OTHER, SELFPAY ==
--- NOTE | 2023-06-05 10:53 | A.OFFVIS_ITS ---
Intake Vital Signs 06/05/23 10:54 Height 5 ft Weight 159 lb BMI 31.0 BP 122/60 Blood Pressure Location Rt brachial Position Sitting Pulse 82 Pulse Source Pulse Oximeter Pulse Oximetry (%) 97 Oxygen Delivery Method Room Air Intake Visit Reasons: [facility] G0439 - see bulletin board Allergies oxycodone [OXYCODONE] Allergy (Intermediate, Verified 06/05/23 11:04) N/V, GI PAIN acetaminophen [Percocet] Adverse Reaction (Unknown, Verified 06/05/23 11:04) vomiting Medication List - Last Reconciled 06/05/23 by Ema Perry MD acetaminophen ER ([facility] Pain) 650 mg PO Q12H PRN 90 days alendronate 70 mg PO QWEEK aspirin 81 mg PO DAILY cholecalciferol (vitamin D3) 25 mcg PO DAILY 90 days cyclobenzaprine 10 mg PO BEDTIME PRN 90 days diphenhydramine HCl 25 mg PO ONCE PRN 30 days ibuprofen 600 mg PO Q6H PRN levocetirizine 5 mg PO DAILY 30 days lisinopril 20 mg PO DAILY 90 days meclizine 12.5 mg PO DAILY PRN omeprazole 20 mg PO DAILY paroxetine HCl 40 mg PO QAM 90 days HPI [facility] G0439 - see bulletin board HPI Details Patient is 62-year-old female came in today for Medicare wellness visit and follow-up appointment Blood pressure is 122/60, patient is taking all her medications no side effects She continued to have PE lumbar area right side radiating to her right leg with paresthesia right foot, I have placed referral for her to be evaluated by the Pain Management She has a script for muscle relaxer to be taken as needed Allergies are stable she is taking long-acting antihistamine as needed and Flonase nasal spray. Chronic vertigo stable with meclizine as needed GERD is stable with omeprazole 20 mg Patient have major depression and is taking paroxetine 40 mg daily She also would like to see Dermatology for changing more on her face. Labs are needed Patient have a history of osteoporosis and is taking alendronate once a week. Due for bone density HPI Comments History of Present Illness Details AWV Medical/social history reviewed Past medical history reviewed [place] of care / care team list updated Surgical/ hospitalization history reviewed Current medications including OTC and supplements reviewed Family history reviewed Tobacco controlled form updated Alcohol use form updated Illicit drug use in social history reviewed Current diagnosis of depression ?screening updated Appropriate PHQ 2/PHQ-9 completed . Vital signs reviewed Alcohol tobacco drug use reviewed and discussed . MMSE completed . ? Fall risk: ?Assessed Fall history: ?None Have you had any falls with injury in the past year?? No Have you had 2 or more falls in the past year?? No Fall risk assessment completed Home safety discussed with the patient Functional ability assessed and discussed and documented Activities of daily living reviewed and appropriate actions taken . HRA filled out by the patient and reviewed by provider and scanned . Appropriate written screening schedule established . Any health advise needed provided . Advance care planning discussed with the patient , necessary paperwork filled Examination IPPE/AWE: Balance intact Romberg intact Tandem walk intact walk-in turn intact rise from sit to stand intact . ?Hearing ?whisper test pass . Medication list reviewed, patient is stable on medications All other providers patient is seeing discussed and noted . [facility] Medical History Carpal tunnel syndrome on both sides Fall Elevated troponin level not due myocardial infarction Urinary incontinence in female Environmental allergies Arthrosis Chronic GERD Hypertension, essential Diabetes 1.5, managed as type 2 Depression, major, recurrent Lipid disorder Tobacco abuse Surgical History History of hysteroscopy History of open reduction and internal fixation (ORIF) procedure Hx of cholecystectomy Family History Father History of heart attack HTN (hypertension) CVD (cardiovascular disease) Diabetes mellitus Mother Alzheimer's disease Sister Breast cancer Sister Lung cancer Uterine cancer Sister Colon cancer Maternal Grandmother Colon cancer Social History Household Members: Children Housing: Apartment Do you presently have visiting nurse or other home services: Yes Alcohol intake: current Alcohol intake frequency: former alcohol drinker Patient Tobacco Use Status: Current everyday Tobacco user Tobacco use type: Cigarette Cigarette Packs Per Day: 5 Cigarettes Per Day: 100.0 Years Smoked: 45 e-Cigarette/Vaping Use: Never Used Substance Use Type: Marijuana service: No Current occupational status: retired Current occupation: [employer] Cognitive needs: No Hearing needs: No Vision needs: No Female Reproductive History Menstrual Age of Menarche: 11 Questionnaire Medicare Wellness Checkup What [age] What gender do you identify with?: female During the past 4 weeks, how much have you been bothered by emotional problems such as feeling anxious, depressed, irritable, sad or downhearted, and blue?: extremely During the past 4 weeks, has your physical & emotional health limited your social activities with family, friends, neighbors, or groups?: quite a bit During the past 4 weeks, how much bodily pain have you generally had?: severe pain During the past 4 weeks, was someone available to help you if you needed & wanted help?: yes, quite a bit During the past 4 weeks, what was the hardest physical activity you could do for at least 2 minutes?: very light Can you get to places out of walking distance without help? (For eg., can you travel alone on buses, taxis or drive your car?): No Can you go shopping for groceries or clothes without someone's help?: No Can you prepare your own meals?: No Can you do your housework without help?: No Because of any health problems, do you need the help of another person with your personal care needs such as eating, bathing, dressing or getting around the house?: Yes Can you handle your own money without help?: No During the past 4 weeks, how would you rate your health in general?: fair During the past 4 weeks how have things been going for you?: good & bad parts about equal Are you having difficulties driving your car?: not applicable, I don't use a car Do you always fasten your seat belt when you are in a car?: yes, usually During past 4 weeks, have you been bothered by the following: never: Sexual problems?, Teeth or denture problems? and Problems using the telephone?, sometimes: Falling or dizzy when standing up and Trouble eating well? and often: Tiredness or fatigue? Have you fallen 2 or more times in the past year?: No Are you afraid of falling?: Yes Are you a smoker?: yes, but I'm not ready to quit During the past 4 weeks, how many drinks of wine, beer, or other alcoholic beverages did you have?: 1 drink or less per week Do you exercise for about 20 minutes 3 or more times a week?: no, I usually do not exercise this much Have you been given information to help with the following?: yes: Hazards in your house that might hurt you? and yes: Keeping track of your medications? How often do you have trouble taking medicines the way you have been told to take them?: I always take medicine as prescribed How confident are you that you can control & manage most of your health problems?: not very confident What is your race?: or origin or descent Mini Mental State Exam (MMSE) Orientation What is the (year) (season) (date) (day) (month)?: year, season, date, day and month Where are we (state) (county) (town or city) (hospital) (floor)?: state, county, town or city and hospital/clinic Score Score: 9 Activity of Daily Living Bathing - sponge bath, tub bath or shower: receives no assistance (gets in/out by self, if usual bathing means Dressing - getting clothes from closets & drawers, including inner/outer garments & fasteners.: gets clothes & gets completely dressed without help Toileting - going to the 'toilet room' for urine/bowel elimination & cleaning self/arranging clothes: goes to toilet room, cleans self, arranges clothes without help Transfer: moves in & out of bed and chair without help (may use support object) Continence: has occasional 'accidents' Feeding: feeds self without help Total Score: 0 Information obtained from: patient Using telephone: independent Traveling: dependent Shopping: dependent Preparing meals: dependent Housework: dependent Taking medicine: needs assistance Managing money: dependent PHQ-9 Over the last 2 weeks, how often have you been bothered by any of the following problems? 1. Little interest or pleasure in doing things: more than half the days 2. Feeling down, depressed, or hopeless: more than half the days 3. Trouble falling or staying asleep, or sleeping too much: more than half the days 4. Feeling tired or having little energy: more than half the days 5. Poor appetite or overeating: more than half the days 6. Feeling bad about yourself - or that you are a failure or have let yourself or your family down: more than half the days 7. Trouble concentrating on things, such as reading the newspaper or watching television: more than half the days 8. Moving or speaking so slowly that other people could have noticed. Or the opposite - being so fidgety or restless that you have been moving around a lot more than usual: more than half the days 9. Thoughts that you would be better off or of hurting yourself in some way: several days Total score: 17 Depression Screening Interpretation: Positive 40162 - PHQ-9 Billing: Yes Source: Developed by Drs. Fred Martini, Becka Modi, Arley Luu and colleagues, with an educational ignacio from [employer]. Review of Systems Const Denies chills and Denies fever(s) ENT Denies epistaxis and Denies nasal discharge Card Denies chest pain Resp Denies chest congestion, Denies cough and Denies hemoptysis GI Denies diarrhea and Denies nausea Skin/Breast Denies rash Neuro Reports no additional complaints Psych Reports no additional complaints Endo Reports no additional complaints Physical Exam Vital Signs: Last Vital Signs Pulse 82 06/05/23 10:54 BP 122/60 06/05/23 10:54 Pulse Ox 97 06/05/23 10:54 Oxygen Delivery Method Room Air 06/05/23 10:54 BMI result Body Mass Index 31.0 Const General: cooperative, comfortable and no acute distress Orientation/consciousness: patient oriented x3 HEENT Head: Yes normocephalic Eyes General: appearance normal, both eyes and all related structures Neck Other: Supple Neck: Yes supple Resp Effort & Inspection: normal respiratory effort, no cough and no stridor Cardio Rhythm: regular rhythm Heart sounds: S1 normal heart sound present and S2 normal heart sound present Skin General skin exam: turgor normal Neuro Other: Motor sensory intact General: patient oriented x3, tone normal and moves all extremities Extrem Other: No lower extremity swelling. Right lower extremity: no edema Left lower extremity: no edema Psych Other: Normal effect, speech clear Assessment & Plan Assessment & Plan (1) Diabetes 1.5, managed as type 2: Code(s): E13.9 - Other specified diabetes mellitus without complications (2) Osteoporosis: Code(s): M81.0 - Age-related osteoporosis without current pathological fracture Qualifiers: Osteoporosis type: age-related Presence of current pathological fracture: without current pathological fracture Qualified Code(s): M81.0 - Age- related osteoporosis without current pathological fracture (3) Menopausal state: Code(s): N95.1 - Menopausal and female climacteric states (4) Lipid disorder: Code(s): E78.9 - Disorder of lipoprotein metabolism, unspecified (5) Hypertension, essential: Code(s): I10 - Essential (primary) hypertension (6) Environmental allergies: Code(s): Z91.09 - Other allergy status, other than to drugs and biological substances (7) Depression, major, recurrent: Code(s): F33.9 - Major depressive disorder, recurrent, unspecified Qualifiers: Active/Remission status: in partial remission Qualified Code(s): F33.41 - Major depressive disorder, recurrent, in partial remission (8) Arthrosis: Code(s): M19.90 - Unspecified osteoarthritis, unspecified site (9) Menopause: Code(s): Z78.0 - Asymptomatic menopausal state (10) Right lumbar radiculitis: Code(s): M54.16 - Radiculopathy, lumbar region (11) Change in facial mole: Code(s): D22.30 - Melanocytic nevi of unspecified part of face Plan Patient is 62-year-old female came in today for Medicare wellness visit and follow-up appointment Blood pressure is 122/60, patient is taking all her medications no side effects She continued to have PE lumbar area right side radiating to her right leg with paresthesia right foot, I have placed referral for her to be evaluated by the Pain Management She has a script for muscle relaxer to be taken as needed Allergies are stable she is taking long-acting antihistamine as needed and Flonase nasal spray. Chronic vertigo stable with meclizine as needed GERD is stable with omeprazole 20 mg Patient have major depression and is taking paroxetine 40 mg daily She also would like to see Dermatology for changing more on her face. Labs are needed Patient have a history of osteoporosis and is taking alendronate once a week. Due for bone density Orders: Orders Comprehensive Met. Panel Today E13.9 - Other specified diabetes mellitus without complications, E78.9 - Disorder of lipoprotein metabolism, unspecified, F33.9 - Major depressive disorder, recurrent, unspecified, I10 - Essential (primary) hypertension, M19.90 - Unspecified osteoarthritis, unspecified site, M81.0 - Age-related osteoporosis without current pathological fracture, N95.1 - Menopausal and female climacteric states, Z91.09 - Other allergy status, other than to drugs and biological substances LDL Cholesterol Direct Today E13.9 - Other specified diabetes mellitus without complications, E78.9 - Disorder of lipoprotein metabolism, unspecified, F33.9 - Major depressive disorder, recurrent, unspecified, I10 - Essential (primary) hypertension, M19.90 - Unspecified osteoarthritis, unspecified site, M81.0 - Age-related osteoporosis without current pathological fracture, N95.1 - Menopa usal and female climacteric states, Z91.09 - Other allergy status, other than to drugs and biological substances TSH reflex Free T4 Today E13.9 - Other specified diabetes mellitus without complications, E78.9 - Disorder of lipoprotein metabolism, unspecified, F33.9 - Major depressive disorder, recurrent, unspecified, I10 - Essential (primary) hypertension, M19.90 - Unspecified osteoarthritis, unspecified site, M81.0 - Age-related osteoporosis without current pathological fracture, N95.1 - Menopausal and female climacteric states, Z91.09 - Other allergy status, other than to drugs and biological substances Complete Blood Count Auto Diff Today E13.9 - Other specified diabetes mellitus without complications, E78.9 - Disorder of lipoprotein metabolism, unspecified, F33.9 - Major depressive disorder, recurrent, unspecified, I10 - Essential (primary) hypertension, M19.90 - Unspecified osteoarthritis, unspecified site, M81.0 - Age-related osteoporosis without current pathological fracture, N95.1 - Menopausal and female climacteric states, Z91.09 - Other allergy status, other than to drugs and biological substances XR DEXA axial skeleton Today Z78.0 - Asymptomatic menopausal state Hemoglobin A1c Today E13.9 - Other specified diabetes mellitus without complications Referrals Pain Management Referral M54.16 - Radiculopathy, lumbar region Dermatology Referral D22.30 - Melanocytic nevi of unspecified part of face Quality Reporting (2019) Depression/Bipolar (159/160/161/177) PHQ-9: Total score: 17 Coding Level of Care Code Medicare Subsequent (G0439) Est Pt Level 4 (90272) Diagnoses Diabetes 1.5, managed as type 2 E13.9 Age-related osteoporosis without current pathological fracture M81.0 Osteoporosis type: age-related Presence of current pathological fracture: without current pathological fracture Menopausal state N95.1 Lipid disorder E78.9 Hypertension, essential I10 Environmental allergies Z91.09 Recurrent major depressive disorder, in partial remission F33.41 Active/Remission status: in partial remission Arthrosis M19.90 Menopause Z78.0 Right lumbar radiculitis M54.16 Change in facial mole D22.30 CPT Codes Advance Care Planning - Advance Care Planning discussion: On file, no changes ([id number]) Advance Care Planning Advance Care Planning discussion: On file, no changes
[2023-06-05 10:54] VITALS: BP 122/60; PULSE 82; O2SAT 97; BMI 31.0
== END 2023-06-05 12:04 | disposition home or self-care (01) ==
PROVIDERS: Visit Provider Internal Medicine
DX: Z00.00 Encounter for general adult medical examination without abnormal findings (principal); E13.9 Other specified diabetes mellitus without complications; I10 Essential (primary) hypertension; Z91.09 Other allergy status, other than to drugs and biological substances; F33.41 Major depressive disorder, recurrent, in partial remission; M81.0 Age-related osteoporosis without current pathological fracture; N95.1 Menopausal and female climacteric states; E78.9 Disorder of lipoprotein metabolism, unspecified; M19.90 Unspecified osteoarthritis, unspecified site; Z78.0 Asymptomatic menopausal state; M54.16 Radiculopathy, lumbar region; D22.30 Melanocytic nevi of unspecified part of face
CPT/HCPCS: 1123F; G0439

== ENCOUNTER 2023-06-05 11:27 | Outpatient (REF) | payer OTHER, MEDICAID, SELFPAY ==
[2023-06-05 13:09] LABS: MANUAL DIFF FLAG NO
[2023-06-05 13:40] LABS: Basophils Percent Auto 0.4 % (0-2); Eosinophils Absolute Auto 0.2 X10*3/uL (0.0-0.4); Eosinophils Percent Auto 1.8 % (0-4); Hematocrit 36.3 % (37.0-47.0); Hemoglobin 12.3 g/dl (12.0-16.0); Imm Gran Abs Auto 0.05 X10*3/uL (0.00-0.03); Imm Gran Pct Auto 0.6 % (0.0-0.4); Lymphocytes Absolute Auto 3.1 X10*3/uL (1.2-4.9); Lymphocytes Percent Auto 38.3 % (20-40); Mean Corpuscular HGB Conc 33.9 g/dl (31.0-35.0); Mean Corpuscular Hemoglobin 31.1 pg (27.0-33.0); Mean Corpuscular Volume 91.9 fL (80.0-98.0); Mean Platelet Volume 10.1 fL (9.4-12.3); Monocytes Absolute Auto 0.6 X10*3/uL (0.1-1.2); Monocytes Percent Auto 7.2 % (2-11); Neutrophils Absolute Auto 4.2 x10*3/uL (2.0-8.3); Neutrophils Percent Auto 51.7 % (45-73); Platelet Count 255 X10*3/uL (160-400); Red Blood Count 3.95 X10*6/uL (4.20-5.50); Red Cell Distribution Width 12.2 % (11.0-16.0); White Blood Count 8.2 X10*3/uL (4.8-10.8)
[2023-06-05 13:53] LABS: Estimated Average Glucose 134 mg/dL; Hemoglobin A1c % 6.3 % (<6.0)
[2023-06-05 14:12] LABS: Alanine Aminotransferase 29 U/L (0-31); Albumin Level 4.4 g/dL (3.5-5.0); Alkaline Phosphatase 70 U/L (39-117); Anion Gap 10 (12-20); Aspartate Amino Transferase 27 U/L (5-31); Bilirubin Total 0.3 mg/dL (0.0-1.0); Blood Urea Nitrogen 12 mg/dL (9-16); Calcium 9.9 mg/dL (8.4-10.2); Carbon Dioxide 26 mmol/L (22-29); Chloride 109 mmol/L (96-108); Estimated Glomerular Filt Rate > 60; Glucose Random 87 mg/dL (60-115); Sodium 141 mmol/L (135-145); TSH reflex Free T4 1.41 uIU/mL (0.32-4.0)
[2023-06-06 10:54] LABS: LDL Cholesterol Direct 140 mg/dL (<100)
== END 2023-06-05 11:28 | disposition home or self-care (01) ==
LOC: HO.HMGCLDS 11:27
PROVIDERS: PCP Internal Medicine; Visit Provider Internal Medicine
DX: E13.9 Other specified diabetes mellitus without complications (principal); M81.0 Age-related osteoporosis without current pathological fracture; N95.1 Menopausal and female climacteric states; E78.9 Disorder of lipoprotein metabolism, unspecified; I10 Essential (primary) hypertension; F33.9 Major depressive disorder, recurrent, unspecified; M19.90 Unspecified osteoarthritis, unspecified site; Z91.09 Other allergy status, other than to drugs and biological substances
CPT/HCPCS: 36415; 80053; 83036; 83721; 84443; 85025

== ENCOUNTER → 2023-06-13 14:50 | Outpatient (BNVA) | payer OTHER, MEDICAID, SELFPAY | PROVIDERS: PCP Internal Medicine; Visit Provider Registered Nurse Emergency ==

== ENCOUNTER 2024-09-25 12:27 | Outpatient (AMB) | payer MEDICARE, MEDICAID, SELFPAY ==
--- NOTE | 2024-09-25 12:26 | AM.OFFVISMDC ---
Intake Vital Signs 09/25/24 12:30 Height 5 ft Weight 151 lb BMI 29.5 BP 118/70 Blood Pressure Location Lt brachial Position Sitting Pulse 75 Pulse Source Pulse Oximeter Pulse Oximetry (%) 98 Oxygen Delivery Method Room Air Intake Visit Reasons: SWV G043 Allergies oxycodone [OXYCODONE] Allergy (Intermediate, Verified 09/25/24 12:34) N/V, GI PAIN acetaminophen [Percocet] Adverse Reaction (Unknown, Verified 09/25/24 12:34) vomiting Medication List - Last Reconciled 09/25/24 by Ema Perry MD acetaminophen ER 650 mg PO Q12H PRN 90 days alendronate 70 mg PO QWEEK aspirin 81 mg PO DAILY cholecalciferol (vitamin D3) 25 mcg PO DAILY 90 days cyclobenzaprine 10 mg PO BEDTIME PRN 90 days diphenhydramine HCl 25 mg PO ONCE PRN 30 days ibuprofen 600 mg PO Q6H PRN levocetirizine 5 mg PO DAILY lisinopril 20 mg PO DAILY 90 days meclizine 12.5 mg PO DAILY PRN omeprazole 20 mg PO DAILY paroxetine HCl 40 mg PO QAM 90 days HPI SWV G043 HPI Details Missed her several appointments, last time seen was May of last year Here with her daughter who is primary range feeder, and daughter verbalized that she has her own medical problems so she could not bring her mother Discussed importance of regular follow-up appointment for me to continue care Need to be seen at least 3 times a year every 4 months Health Maintenance - Discussed importance of regular exercise and movement despite discomfort to manage musculoskeletal and pain symptoms. - Recommended vitamin D supplementation continuation for bone health. - Discussed potential dietary modification and weight management as a method to alleviate symptoms and improve overall health. - Explained necessity for annual Medicare wellness visit for comprehensive health evaluation and maintenance. - Reviewed need for routine lab work for ongoing health monitoring. Assessment and Plan 63-year-old female with history of essential hypertension, GERD, and major depressive disorder presenting with follow-up for chronic pain management and wellness visit. She experiences significant sciatica pain, which hinders mobility, and reports rib pain and muscle spasms. Menopausal symptoms like hot flashes were noted, requiring careful management due to the risk associated with certain treatments. The patient's medication regimen, including lisinopril, omeprazole, and paroxetine, was reviewed and adjusted as needed to address ongoing symptomatology and optimize chronic condition management. The importance of regular follow-ups, lab work, and maintaining health through exercise and medication adherence was emphasized. 1. Essential Hypertension - Continuation of lisinopril management with periodic assessments for cough-related adjustments. 2. Gastroesophageal Reflux Disease Gerd - Maintenance of omeprazole with lifestyle advice for dietary changes to help alleviate symptoms. 3. Pleurodynia R07.81 - Analysis indicates a musculoskeletal origin. Recommended analgesics such as Tylenol as needed. 4. Sciatica - Referral to a paintings conservator for evaluation and possible cortisone injections. Imaging may follow. 5. Muscle Spasms - Cyclobenzaprine use as needed for musculoskeletal pain. 6. Menopausal Symptoms - Caution advised on hormonal treatments. Further options to be explored with specialists. 7. Major Depressive Disorder - Maintenance of paroxetine therapy with regular monitoring. HPI Comments History of Present Illness Details AWV Medical/social history reviewed Past medical history reviewed [place] of care / care team list updated Surgical/ hospitalization history reviewed Current medications including OTC and supplements reviewed Family history reviewed Tobacco controlled form updated Alcohol use form updated Illicit drug use in social history reviewed Current diagnosis of depression ?screening updated Appropriate PHQ 2/PHQ-9 completed . Vital signs reviewed Alcohol tobacco drug use reviewed and discussed . MMSE completed . ? Fall risk: ?Assessed Fall history: ?None Have you had any falls with injury in the past year?? No Have you had 2 or more falls in the past year?? No Fall risk assessment completed Home safety discussed with the patient Functional ability assessed and discussed and documented Activities of daily living reviewed and appropriate actions taken . HRA filled out by the patient and reviewed by provider and scanned . Appropriate written screening schedule established . Any health advise needed provided . Advance care planning discussed with the patient , necessary paperwork filled Examination IPPE/AWE: Balance intact Romberg intact Tandem walk failed walk-in turn intact rise from sit to stand intact . ?Hearing ?whisper test pass . Medication list reviewed, patient is stable on medications All other providers patient is seeing discussed and noted . [facility] Medical History Carpal tunnel syndrome on both sides Fall Elevated troponin level not due myocardial infarction Urinary incontinence in female Environmental allergies Arthrosis Chronic GERD Hypertension, essential Diabetes 1.5, managed as type 2 Depression, major, recurrent Lipid disorder Tobacco abuse Surgical History History of hysteroscopy History of open reduction and internal fixation (ORIF) procedure Hx of cholecystectomy Family History Father History of heart attack HTN (hypertension) CVD (cardiovascular disease) Diabetes mellitus Mother Alzheimer's disease Sister Breast cancer Sister Lung cancer Uterine cancer Sister Colon cancer Maternal Grandmother Colon cancer Social History Household Members: Children Housing: Apartment Do you presently have visiting nurse or other home services: Yes Alcohol intake: current Alcohol intake frequency: former alcohol drinker Comment: fell saturday, legs gave out Patient Tobacco Use Status: Current everyday Tobacco user Tobacco use type: Cigarette Cigarette Packs Per Day: 5 Cigarettes Per Day: 100.0 Years Smoked: 45 e-Cigarette/Vaping Use: Never Used Substance Use Type: Marijuana service: No Current occupational status: retired Current occupation: [employer] Cognitive needs: No Hearing needs: No Vision needs: No Female Reproductive History Menstrual Age of Menarche: 11 Questionnaire Medicare Wellness Checkup What [age] What gender do you identify with?: female During the past 4 weeks, how much have you been bothered by emotional problems such as feeling anxious, depressed, irritable, sad or downhearted, and blue?: extremely During the past 4 weeks, has your physical & emotional health limited your social activities with family, friends, neighbors, or groups?: quite a bit During the past 4 weeks, how much bodily pain have you generally had?: severe pain During the past 4 weeks, was someone available to help you if you needed & wanted help?: yes, quite a bit During the past 4 weeks, what was the hardest physical activity you could do for at least 2 minutes?: very light Can you get to places out of walking distance without help? (For eg., can you travel alone on buses, taxis or drive your car?): No Can you go shopping for groceries or clothes without someone's help?: No Can you prepare your own meals?: No Can you do your housework without help?: No Because of any health problems, do you need the help of another person with your personal care needs such as eating, bathing, dressing or getting around the house?: Yes Can you handle your own money without help?: No During the past 4 weeks, how would you rate your health in general?: fair During the past 4 weeks how have things been going for you?: good & bad parts about equal Are you having difficulties driving your car?: not applicable, I don't use a car Do you always fasten your seat belt when you are in a car?: yes, usually During past 4 weeks, have you been bothered by the following: never: Sexual problems?, Teeth or denture problems? and Problems using the telephone?, sometimes: Falling or dizzy when standing up and Trouble eating well? and often: Tiredness or fatigue? Have you fallen 2 or more times in the past year?: No Are you afraid of falling?: Yes Are you a smoker?: yes, but I'm not ready to quit During the past 4 weeks, how many drinks of wine, beer, or other alcoholic beverages did you have?: 1 drink or less per week Do you exercise for about 20 minutes 3 or more times a week?: no, I usually do not exercise this much Have you been given information to help with the following?: yes: Hazards in your house that might hurt you? and yes: Keeping track of your medications? How often do you have trouble taking medicines the way you have been told to take them?: I always take medicine as prescribed How confident are you that you can control & manage most of your health problems?: not very confident What is your race?: or origin or descent Mini Mental State Exam (MMSE) Orientation What is the (year) (season) (date) (day) (month)?: year, season, date, day and month Where are we (state) (county) (town or city) (hospital) (floor)?: state, county, town or city, hospital/clinic and floor Score Score: 10 Activity of Daily Living Bathing - sponge bath, tub bath or shower: receives no assistance (gets in/out by self, if usual bathing means Dressing - getting clothes from closets & drawers, including inner/outer garments & fasteners.: gets clothes & gets completely dressed without help Toileting - going to the 'toilet room' for urine/bowel elimination & cleaning self/arranging clothes: goes to toilet room, cleans self, arranges clothes without help Transfer: moves in & out of bed and chair without help (may use support object) Continence: has occasional 'accidents' Feeding: feeds self without help Total Score: 0 Information obtained from: patient Using telephone: independent Traveling: dependent Shopping: dependent Preparing meals: dependent Housework: dependent Taking medicine: needs assistance Managing money: dependent PHQ-9 Over the last 2 weeks, how often have you been bothered by any of the following problems? 1. Little interest or pleasure in doing things: nearly every day 2. Feeling down, depressed, or hopeless: nearly every day 3. Trouble falling or staying asleep, or sleeping too much: more than half the days 4. Feeling tired or having little energy: nearly every day 5. Poor appetite or overeating: more than half the days 6. Feeling bad about yourself - or that you are a failure or have let yourself or your family down: more than half the days 7. Trouble concentrating on things, such as reading the newspaper or watching television: nearly every day 8. Moving or speaking so slowly that other people could have noticed. Or the opposite - being so fidgety or restless that you have been moving around a lot more than usual: more than half the days 9. Thoughts that you would be better off or of hurting yourself in some way: more than half the days Total score: 22 Depression Screening Interpretation: Positive Depression Screening Follow-up: Existing condition and In treatment Depression Screening Done: Yes 17683 - PHQ-9 Billing: Yes Source: Developed by Drs. Fred Martini, Becka Modi, Arley Luu and colleagues, with an educational ignacio from [employer]. Review of Systems Const Denies chills and Denies fever(s) ENT Denies epistaxis and Denies nasal discharge Card Denies chest pain Resp Denies chest congestion, Denies cough and Denies hemoptysis GI Denies diarrhea and Denies nausea Skin/Breast Denies rash Neuro Reports no additional complaints Psych Reports no additional complaints Endo Reports no additional complaints Physical Exam Vital Signs: Last Vital Signs Pulse 75 09/25/24 12:30 BP 118/70 09/25/24 12:30 Pulse Ox 98 09/25/24 12:30 Oxygen Delivery Method Room Air 09/25/24 12:30 BMI result Body Mass Index 29.5 Const General: cooperative, comfortable and no acute distress Orientation/consciousness: patient oriented x3 HEENT Head: Yes normocephalic Eyes General: appearance normal, both eyes and all related structures Neck Other: Supple Neck: Yes supple Resp Effort & Inspection: normal respiratory effort, no cough and no stridor Cardio Rhythm: regular rhythm Heart sounds: S1 normal heart sound present and S2 normal heart sound present Skin General skin exam: turgor normal Neuro Other: Motor sensory intact General: patient oriented x3, tone normal and moves all extremities Extrem Other: No lower extremity swelling. Right lower extremity: no edema Left lower extremity: no edema Psych Other: Normal effect, speech clear Assessment & Plan Assessment & Plan (1) Medicare annual wellness visit, subsequent: Code(s): Z00.00 - Encounter for general adult medical examination without abnormal findings (2) Depression, major, recurrent: Code(s): F33.9 - Major depressive disorder, recurrent, unspecified Qualifiers: Active/Remission status: in partial remission Qualified Code(s): F33.41 - Major depressive disorder, recurrent, in partial remission (3) Diabetes 1.5, managed as type 2: Code(s): E13.9 - Other specified diabetes mellitus without complications (4) Arthrosis: Code(s): M19.90 - Unspecified osteoarthritis, unspecified site (5) Environmental allergies: Code(s): Z91.09 - Other allergy status, other than to drugs and biological substances (6) Hypertension, essential: Code(s): I10 - Essential (primary) hypertension (7) Lipid disorder: Code(s): E78.9 - Disorder of lipoprotein metabolism, unspecified (8) LFT elevation: Code(s): R79.89 - Other specified abnormal findings of blood chemistry (9) Osteoporosis: Code(s): M81.0 - Age-related osteoporosis without current pathological fracture Qualifiers: Osteoporosis type: age-related Presence of current pathological fracture: without current pathological fracture Qualified Code(s): M81.0 - Age-related osteoporosis without current pathological fracture (10) Left lumbar radiculitis: Code(s): M54.16 - Radiculopathy, lumbar region Plan Missed her several appointments, last time seen was May of last year Here with her daughter who is primary range feeder, and daughter verbalized that she has her own medical problems so she could not bring her mother Discussed importance of regular follow-up appointment for me to continue care Need to be seen at least 3 times a year every 4 months Health Maintenance - Discussed importance of regular exercise and movement despite discomfort to manage musculoskeletal and pain symptoms. - Recommended vitamin D supplementation continuation for bone health. - Discussed potential dietary modification and weight management as a method to alleviate symptoms and improve overall health. - Explained necessity for annual Medicare wellness visit for comprehensive health evaluation and maintenance. - Reviewed need for routine lab work for ongoing health monitoring. Assessment and Plan 63-year-old female with history of essential hypertension, GERD, and major depressive disorder presenting with follow-up for chronic pain management and wellness visit. She experiences significant sciatica pain, which hinders mobility, and reports rib pain and muscle spasms. Menopausal symptoms like hot flashes were noted, requiring careful management due to the risk associated with certain treatments. The patient's medication regimen, including lisinopril, omeprazole, and paroxetine, was reviewed and adjusted as needed to address ongoing symptomatology and optimize chronic condition management. The importance of regular follow-ups, lab work, and maintaining health through exercise and medication adherence was emphasized. 1. Essential Hypertension - Continuation of lisinopril management with periodic assessments for cough-related adjustments. 2. Gastroesophageal Reflux Disease Gerd - Maintenance of omeprazole with lifestyle advice for dietary changes to help alleviate symptoms. 3. Pleurodynia R07.81 - Analysis indicates a musculoskeletal origin. Recommended analgesics such as Tylenol as needed. 4. Sciatica - Referral to a paintings conservator for evaluation and possible cortisone injections. Imaging may follow. 5. Muscle Spasms - Cyclobenzaprine use as needed for musculoskeletal pain. 6. Menopausal Symptoms - Caution advised on hormonal treatments. Further options to be explored with specialists. 7. Major Depressive Disorder - Maintenance of paroxetine therapy with regular monitoring. Orders: Orders Hemoglobin A1c Today E13.9 - Other specified diabetes mellitus without complications, E78.9 - Disorder of lipoprotein metabolism, unspecified, F33.41 - Major depressive disorder, recurrent, in partial remission, I10 - Essential (primary) hypertension, M19.90 - Unspecified osteoarthritis, unspecified site, M81.0 - Age-related osteoporosis without current pathological fracture, R79.89 - Other specified abnormal findings of blood chemistry, Z91.09 - Other allergy status, other than to drugs and biological substances Comprehensive Met. Panel Today E13.9 - Other specified diabetes mellitus without complications, E78.9 - Disorder of lipoprotein metabolism, unspecified, F33.41 - Major depressive disorder, recurrent, in partial remission, I10 - Essential (primary) hypertension, M19.90 - Unspecified osteoarthritis, unspecified site, M81.0 - Age-related osteoporosis without current pathological fracture, R79.89 - Other specified abnormal findings of blood chemistry, Z91.09 - Other allergy status, other than to drugs and biological substances LDL Cholesterol Direct Today E13.9 - Other specified diabetes mellitus without complications, E78.9 - Disorder of lipoprotein metabolism, unspecified, F33.41 - Major depressive disorder, recurrent, in partial remission, I10 - Essential (primary) hypertension, M19.90 - Unspecified osteoarthritis, unspecified site, M81.0 - Age-related osteoporosis without current pathological fracture, R79.89 - Other specified abnormal findings of blood chemistry, Z91.09 - Other allergy status, other than to drugs and biological substances Referrals Pain Management Referral M54.16 - Radiculopathy, lumbar region Medications: Changed From ibuprofen 600 mg PO Q6H PRN 30 tabs 0RF pain To ibuprofen 600 mg PO Q6H PRN 90 tabs 1RF pain 30 days Refilled cyclobenzaprine 10 mg PO BEDTIME PRN 90 tabs 0RF muscle spasm 90 days Quality Reporting (2019) Depression/Bipolar (159/160/161/177) PHQ-9: Total score: 22 Coding Level of Care Code Medicare Subsequent (G0439) Est Pt Level 4 (52958) Diagnoses Medicare annual wellness visit, subsequent Z00.00 Recurrent major depressive disorder, in partial remission F33.41 Active/Remission status: in partial remission Diabetes 1.5, managed as type 2 E13.9 Arthrosis M19.90 Environmental allergies Z91.09 Hypertension, essential I10 Lipid disorder E78.9 LFT elevation R79.89 Age-related osteoporosis without current pathological fracture M81.0 Osteoporosis type: age-related Presence of current pathological fracture: without current pathological fracture Left lumbar radiculitis M54.16 Additional Codes PHQ-9 - 35468 - PHQ-9 Billing: Yes ([id number])
[2024-09-25 12:30] VITALS: BP 118/70; PULSE 75; O2SAT 98; BMI 29.5
== END 2024-09-25 13:04 | disposition home or self-care (01) ==
PROVIDERS: PCP Internal Medicine; Visit Provider Internal Medicine
DX: Z00.00 Encounter for general adult medical examination without abnormal findings (principal); F33.41 Major depressive disorder, recurrent, in partial remission; E13.9 Other specified diabetes mellitus without complications; M19.90 Unspecified osteoarthritis, unspecified site; Z91.09 Other allergy status, other than to drugs and biological substances; I10 Essential (primary) hypertension; E78.9 Disorder of lipoprotein metabolism, unspecified; R79.89 Other specified abnormal findings of blood chemistry; M81.0 Age-related osteoporosis without current pathological fracture; M54.16 Radiculopathy, lumbar region

== ENCOUNTER 2024-09-25 12:27 | Outpatient (REF) | payer MEDICARE, MEDICAID, SELFPAY ==
[2024-09-25 16:22] LABS: Estimated Average Glucose 131 mg/dL; Hemoglobin A1C 150.1409 umol/L; Hemoglobin A1c % 6.2 % (<6.0); Total Hemoglobin (HGBA1C) 3385.3878 umol/L
[2024-09-25 16:36] LABS: Alanine Aminotransferase 45 U/L (0-31); Albumin Level 4.5 g/dL (3.5-5.0); Alkaline Phosphatase 71 U/L (39-117); Anion Gap 11 (12-20); Aspartate Amino Transferase 45 U/L (5-31); Bilirubin Total 0.3 mg/dL (0.0-1.0); Blood Urea Nitrogen 10 mg/dL (9-16); Calcium 8.9 mg/dL (8.4-10.2); Carbon Dioxide 23 mmol/L (22-29); Chloride 113 mmol/L (96-108); Estimated Glomerular Filt Rate > 60; Glucose Random 101 mg/dL (60-115); Potassium 3.7 mmol/L (3.3-5.1); Sodium 143 mmol/L (135-145); Total Protein 7.3 g/dL (6.5-8.0)
[2024-09-28 10:29] LABS: LDL Cholesterol Direct 133 mg/dL (<100)
== END 2024-09-25 12:28 | disposition home or self-care (01) ==
LOC: HO.HMGCLDS 12:27
PROVIDERS: PCP Internal Medicine; Visit Provider Internal Medicine
DX: Z00.00 Encounter for general adult medical examination without abnormal findings (principal); I10 Essential (primary) hypertension; K21.9 Gastro-esophageal reflux disease without esophagitis; R07.81 Pleurodynia; M54.30 Sciatica, unspecified side; F33.41 Major depressive disorder, recurrent, in partial remission; E13.9 Other specified diabetes mellitus without complications; M19.90 Unspecified osteoarthritis, unspecified site; E78.9 Disorder of lipoprotein metabolism, unspecified; M81.0 Age-related osteoporosis without current pathological fracture; R79.89 Other specified abnormal findings of blood chemistry; M54.16 Radiculopathy, lumbar region; Z79.899 Other long term (current) drug therapy; Z91.09 Other allergy status, other than to drugs and biological substances
CPT/HCPCS: 36415; 80053; 83036; 83721; 96127; 99212

== ENCOUNTER 2025-02-20 08:41 | Inpatient (IN) | payer MEDICARE, MEDICAID, SELFPAY ==
[2025-02-20] VITALS (12 sets, daily range): BP systolic 111–213; BP diastolic 59–132; PULSE 94–158; RESP 16–32; TEMP 36.3–36.9; O2SAT 93–100; BMI 28.7; BMI 29.8
--- NOTE | 2025-02-20 | ECG_ITS ---
Test Reason : SYNCOPE Blood Pressure : */* mmHG Vent. Rate : 113 BPM Atrial Rate : 113 BPM P-R Int : 138 ms QRS Dur : 66 ms QT Int : 354 ms P-R-T Axes : 75 37 73 degrees QTcB Int : 485 ms Sinus tachycardia Right atrial enlargement Borderline ECG When compared with ECG of 10-Aug-2021 18:49, No significant change was found Referred By: Generic ED Physician Electronically Signed By: EDDY TEMPLE
--- NOTE | 2025-02-20 | ECG_ITS ---
Test Reason : TACHYCARDIA Blood Pressure : */* mmHG Vent. Rate : 117 BPM Atrial Rate : 117 BPM P-R Int : 128 ms QRS Dur : 70 ms QT Int : 352 ms P-R-T Axes : 64 21 62 degrees QTcB Int : 491 ms Sinus tachycardia Nonspecific ST abnormality Abnormal ECG When compared with ECG of 20-Feb-2025 09:34, No significant change was found Referred By: Lea Encarnacion Electronically Signed By: EDDY TEMPLE
--- NOTE | ~2025-02-20 | XR_ITS ---
CLINICAL HISTORY: weakness 1 view chest x-ray Comparison: None Findings: Patchy left lower lobe opacities. No pleural effusion or pneumothorax. Normal size heart. Prominent soft tissues in the neck especially on the right side. Multiple old left rib fractures. IMPRESSION: 1. Left lower lobe atelectasis. 2. Early/evolving infiltrate versus aspiration are included in the differential. 3. Nonspecific soft tissue prominence in the right side of the neck. This document has been electronically signed by: Poly Blackmon DO on 02/20/2025 13:12:10
--- NOTE | ~2025-02-20 | CT_ITS ---
CLINICAL HISTORY: abdominal pain, epigastric CT abdomen and pelvis with contrast Comparison: None Findings: No consolidation or effusion. The liver, spleen, adrenal glands and pancreas are unremarkable. The gallbladder is absent. Mild fullness of the right-sided collecting system without ureteral calculus identified. The bladder is partially distended. The appendix is normal. No bowel obstruction or free air. There is diverticulosis without diverticulitis. No pneumatosis or abscess. Uterus and adnexa are within expected limits. Moderate diffuse atherosclerotic disease. No acute osseous finding. Impression: No definite acute process. Mild fullness of the right-sided collecting system without current ureteral calculus. Recently passed calculus possible. Clinical correlation for urinary tract infection. No CT explanation for the patient's reported epigastric pain. This document has been electronically signed by: Edwin King MD on 02/20/2025 10:46:20
--- NOTE | 2025-02-20 09:12 | ED_ITS ---
HPI - General Adult General Chief complaint: General Medical Stated complaint: LEG PAIN Time Seen by Provider: 02/20/25 09:12 Source: patient and EMS Limitations: no limitations History of Present Illness ED Provider: HPI narrative: 64-year-old woman with history of occasional alcohol use, cocaine use, nothing recent, sounds like she had drank alcohol yesterday woke up with significant epigastric abdominal pain, and lower back pain with sciatica, she used to be on gabapentin. Daughter states 1 year ago her primary care physician discontinued it. So she has been having back pain and has been using a lot of anti- inflammatories as well. Patient presented in discomfort, diaphoretic mostly complaining of epigastric abdominal pain, Related Data Previous Rx's ?Medication ?Instructions ?Recorded diphenhydramine HCl 25 mg tablet 25 mg PO ONCE PRN itching 30 days 08/31/22 #30 tabs levocetirizine 5 mg tablet 5 mg PO DAILY #90 tabs 08/26/24 paroxetine HCl 40 mg tablet 40 mg PO QAM 90 days #90 tabs 08/26/24 ibuprofen 600 mg tablet 600 mg PO Q6H PRN pain 30 days #90 09/25/24 tabs meclizine 12.5 mg tablet 12.5 mg PO DAILY PRN motion 10/30/24 sickness #90 tabs alendronate 70 mg tablet 70 mg PO QWEEK #14 tabs 11/30/24 omeprazole 20 mg capsule,delayed 20 mg PO DAILY #90 caps 11/30/24 release acetaminophen 650 mg 650 mg PO Q12H PRN pain 90 days 01/05/25 tablet,extended release #180 tabs cholecalciferol (vitamin D3) 25 25 mcg PO DAILY 90 days #90 caps 01/05/25 mcg (1,000 unit) capsule cyclobenzaprine 10 mg tablet 10 mg PO BEDTIME PRN muscle spasm 01/05/25 90 days #90 tabs aspirin 81 mg tablet,delayed 81 mg PO DAILY #90 tabs 02/19/25 release lisinopril 20 mg tablet 20 mg PO DAILY 90 days #90 tabs 02/19/25 Allergies Allergy/AdvReac Type Severity Reaction Status Date / Time oxycodone [OXYCODONE] Allergy Intermediate N/V, GI Verified 02/20/25 09:07 PAIN Review of Systems 2 Constitutional: Constitutional: Reports as per HPI [facility] Past Medical History Medical History Carpal tunnel syndrome on both sides Fall Elevated troponin level not due myocardial infarction Urinary incontinence in female Environmental allergies Arthrosis Chronic GERD Hypertension, essential Diabetes 1.5, managed as type 2 Depression, major, recurrent Lipid disorder Tobacco abuse Surgical History History of hysteroscopy History of open reduction and internal fixation (ORIF) procedure Hx of cholecystectomy Family History Family History Father History of heart attack HTN (hypertension) CVD (cardiovascular disease) Diabetes mellitus Mother Alzheimer's disease Sister Breast cancer Sister Lung cancer Uterine cancer Sister Colon cancer Maternal Grandmother Colon cancer Social History Social History Household Members: Children Housing: Apartment Do you presently have visiting nurse or other home services: Yes Alcohol intake: current Alcohol intake frequency: former alcohol drinker Comment: fell saturday, legs gave out Patient Tobacco Use Status: Current everyday Tobacco user Tobacco use type: Cigarette Cigarette Packs Per Day: 5 Cigarettes Per Day: 100.0 Years Smoked: 45 e-Cigarette/Vaping Use: Never Used Substance Use Type: Marijuana Advance Directives: No Advance Directives Information Provided: No service: No Current occupational status: retired Current occupation: [employer] handed Cognitive needs: No Hearing needs: No Vision needs: No Physical Exam ED Vital Signs: Vital Signs - 24 hr 02/20/25 09:04 02/20/25 10:08 02/20/25 11:17 Temperature 98.2 F 97.4 F Pulse Rate 120 H 108 H Respiratory Rate 22 H 27 H Blood Pressure 187/113 H 213/116 H Pulse Oximetry 100 98 Oxygen Delivery Method Room Air Room Air 02/20/25 12:00 Temperature 97.4 F Pulse Rate 108 H Respiratory Rate 16 Blood Pressure 194/103 H Pulse Oximetry 97 Oxygen Delivery Method Room Air BMI result Body Mass Index 28.7 Const Other: * Gen: ?Patient is in discomfort * HEENT: PERRLA, EOMI, MMM, * Neck: Supple, no LAD * CV: RRR, no obvious murmurs appreciated * Resp: ?No wheezing rales rhonchi no stridor moving air well * Abd: ?Diffuse abdominal tenderness with bowel sounds present * MSK: FROM, strength 5/5 all extremities, full range of motion bilateral lower extremities at the hips knees and ankles no sensory deficits * Skin: Warm, dry, intact, * Neuro: ?Alert and oriented x3, moving upper and lower extremities symmetrically, no obvious facial asymmetry noted Medications Administered Discontinued Medications Generic Name Dose Route Start Last Admin Trade Name Jefersonq PRN Reason Stop Dose Admin Al Hydroxide/Mg Hydroxide 30 ml 02/20/25 09:22 02/20/25 09:38 Magnesium Hydrox/Alum Hydrox 30 Ml Oral.Susp PO 02/20/25 09:23 30 ml ONCE ONE Administration Ceftriaxone Sodium 1 gm 02/20/25 10:05 02/20/25 11:00 Ceftriaxone Sodium 1 Gm Vial IVPUSH 02/20/25 10:06 1 gm ONCE ONE Administration Diazepam 5 mg 02/20/25 09:22 02/20/25 09:38 Diazepam 10 Mg/2 Ml Cartridge IVPUSH 02/20/25 09:23 5 mg STAT STA Administration Sodium Chloride 1,000 mls @ 999 mls/hr 02/20/25 09:30 02/20/25 10:39 Ns IV 02/20/25 10:30 Infused .Q1H1M PEEWEE Infusion Sodium Chloride 1,000 mls @ 999 mls/hr 02/20/25 11:30 02/20/25 11:40 Ns IV 02/20/25 12:30 999 mls/hr .Q1H1M PEEWEE Administration Iohexol 100 ml 02/20/25 10:00 02/20/25 10:00 Iohexol 350 Mg/Ml 100 Ml Infus..Btl IV 02/20/25 10:01 85 ml ONCE ONE Administration Iohexol 100 ml 02/20/25 10:31 02/20/25 10:32 Iohexol 350 Mg/Ml 100 Ml Infus..Btl IV 02/20/25 10:32 85 ml ONCE ONE Administration Lidocaine HCl 15 ml 02/20/25 09:24 02/20/25 09:38 Lidocaine Hcl Viscous 2 % 15 Ml Solution PO 02/20/25 09:25 15 ml ONCE ONE Administration Lisinopril 20 mg 02/20/25 11:29 02/20/25 11:39 Lisinopril 20 Mg Tablet PO 02/20/25 11:30 20 mg ONCE ONE Administration Protocol Morphine Sulfate 4 mg 02/20/25 11:03 02/20/25 11:16 Morphine Sulfate 4 Mg/Ml Cartridge IVPUSH 02/20/25 11:04 4 mg ONCE ONE Administration Protocol Ondansetron HCl 4 mg 02/20/25 09:22 02/20/25 09:38 Ondansetron Hcl 4 Mg/2 Ml Vial IVPUSH 02/20/25 09:23 4 mg ONCE ONE Administration Medical Decision Making Medical Decision Making [facility] Narrative: 09:30 we will re-evaluate, currently in quite a bit of discomfort, sounds like she drank alcohol yesterday maybe it presenting with alcoholic gastritis but bowel perforation ACS highest on my differential for rule out, disposition to be determined. 10:06 patient is meeting SIRS criteria, so I am beginning to suspect sepsis, ordering antibiotics ceftriaxone, she has received fluids, currently no indication for 30 cc/kg IV fluid boluses. 1050: Patient is feeling better, CT without intra-abdominal infection, we will await urinalysis, re-evaluated, patient is better vital signs improving, we will order pain medication awaiting urinalysis, discussed with her daughter the workup Impression: No definite acute process. Mild fullness of the right-sided collecting system without current ureteral calculus. Recently passed calculus possible. Clinical correlation for urinary tract infection. No CT explanation for the patient's reported epigastric pain. 12:54 patient re-examined, stomach pain has improved, nonfebrile, tachypnea is better, tachycardic is better, lactate 5.7, she did receive her fluids and ceftriaxone, I am performing viral swab, chest x-ray without obvious consolidations, also I re-examined the patient there are no rashes to suspect underlying cellulitis, no IV drug use to suspect diskitis osteomyelitis, I am going to plan to admit her for improvement in her symptoms and negative blood cultures. And she typically has a troponin leak she had a trip of 19 and 25 these are less than she has had in the past Differential Diagnosis Differential Diagnoses: The differential diagnosis associated with the presentation includes alcoholic gastritis, ACS, bowel perforation, SBO, pancreatitis, hepatitis, Admission/Observation Consideration of admission/observation: Escalation of care including admission/observation considered Lab Data [facility] Lab Attestation statement: I reviewed the patient's lab results. 02/20/25 09:21 02/20/25 09:21 Labs: Lab Results 02/20/25 02/20/25 02/20/25 Range/Units 09:04 09:21 10:21 WBC 20.4 H (4.8-10.8) X10*3/uL RBC 5.04 D (4.20-5.50) X10*6/uL Hgb 15.7 D (12.0-16.0) g/dl Hct 44.8 D (37.0-47.0) % MCV 88.9 (80.0-98.0) fL MCH 31.2 (27.0-33.0) pg MCHC 35.0 (31.0-35.0) g/dl RDW 13.1 (11.0-16.0) % Plt Count 382 D (160-400) X10*3/uL MPV 9.2 L (9.4-12.3) fL Immature Gran % (Auto) 1.6 H (0.0-0.4) % Neut % (Auto) 83.9 H (45-73) % Lymph % (Auto) 10.7 L (20-40) % [place] % (Auto) 3.3 (2-11) % Eos % (Auto) 0.1 (0-4) % Baso % (Auto) 0.4 (0-2) % Lymph # (Auto) 2.2 (1.2-4.9) X10*3/uL [place] # (Auto) 0.7 (0.1-1.2) X10*3/uL Eos # (Auto) 0.0 (0.0-0.4) X10*3/uL Baso # (Auto) 0.1 (0.0-0.2) X10*3/uL Abs Immat Gran (auto) 0.33 H (0.00-0.03) X10*3/uL Absolute Neuts (auto) 17.1 H (2.0-8.3) x10*3/uL Absolute Nucleated RBC 0.000 (0.0-0.012) X10*3/uL Nucleated RBC % (auto) 0.0 (0.0-0.2) /100WBC Sodium 142 (135-145) mmol/L Potassium 3.6 (3.3-5.1) mmol/L Chloride 105 (96-108) mmol/L Carbon Dioxide 17 L (22-29) mmol/L Anion Gap 24 H (12-20) BUN 16 (9-16) mg/dL Creatinine 0.98 (0.5-1.4) mg/dL Estim Creat Clear Calc 50.8 Estimated GFR 57 POC Glucose 277 H (60-115) mg/dL Random Glucose 267 H (60-115) mg/dL Lactic Acid 5.7 H* (0.5-2.0) mmol/L Calcium 11.1 H D (8.4-10.2) mg/dL Total Bilirubin 0.6 (0.0-1.0) mg/dL AST 45 H (5-31) U/L ALT 42 H (0-31) U/L Alkaline Phosphatase 98 (39-117) U/L Troponin I High Sens 19.4 H 25.0 H (<3.5-17.0) ng/L Total Protein 9.1 H (6.5-8.0) g/dL Albumin 5.8 H (3.5-5.0) g/dL Lipase 54 (8-78) U/L Urine Color Urine Appearance Urine pH (5.0-9.0) Ur Specific [place] (1.005-1.025) Urine Protein (Neg-Trace) mg/dL Urine Glucose (UA) (Negative) mg/dL Urine Ketones (Negative) mg/dL Urine Blood (Negative) Urine Nitrite (Negative) Ur Leukocyte Esterase (Negative) Urine RBC (0-2) /HPF Urine WBC (0-5) /HPF Ur Squamous Epith Cells (0-2) /HPF Urine Bacteria (None Seen) Hyaline Casts (0-2) /LPF Ethyl Alcohol mg/dL 02/20/25 02/20/25 Range/Units 10:22 11:56 WBC (4.8-10.8) X10*3/uL RBC (4.20-5.50) X10*6/uL Hgb (12.0-16.0) g/dl Hct (37.0-47.0) % MCV (80.0-98.0) fL MCH (27.0-33.0) pg MCHC (31.0-35.0) g/dl RDW (11.0-16.0) % Plt Count (160-400) X10*3/uL MPV (9.4-12.3) fL Immature Gran % (Auto) (0.0-0.4) % Neut % (Auto) (45-73) % Lymph % (Auto) (20-40) % [place] % (Auto) (2-11) % Eos % (Auto) (0-4) % Baso % (Auto) (0-2) % Lymph # (Auto) (1.2-4.9) X10*3/uL [place] # (Auto) (0.1-1.2) X10*3/uL Eos # (Auto) (0.0-0.4) X10*3/uL Baso # (Auto) (0.0-0.2) X10*3/uL Abs Immat Gran (auto) (0.00-0.03) X10*3/uL Absolute Neuts (auto) (2.0-8.3) x10*3/uL Absolute Nucleated RBC (0.0-0.012) X10*3/uL Nucleated RBC % (auto) (0.0-0.2) /100WBC Sodium (135-145) mmol/L Potassium (3.3-5.1) mmol/L Chloride (96-108) mmol/L Carbon Dioxide (22-29) mmol/L Anion Gap (12-20) BUN (9-16) mg/dL Creatinine (0.5-1.4) mg/dL Estim Creat Clear Calc Estimated GFR POC Glucose (60-115) mg/dL Random Glucose (60-115) mg/dL Lactic Acid (0.5-2.0) mmol/L Calcium (8.4-10.2) mg/dL Total Bilirubin (0.0-1.0) mg/dL AST (5-31) U/L ALT (0-31) U/L Alkaline Phosphatase (39-117) U/L Troponin I High Sens (<3.5-17.0) ng/L Total Protein (6.5-8.0) g/dL Albumin (3.5-5.0) g/dL Lipase (8-78) U/L Urine Color Yellow Urine Appearance Clear Urine pH 7.0 (5.0-9.0) Ur Specific [place] >= 1.030 H (1.005-1.025) Urine Protein 300 (3+) H (Neg-Trace) mg/dL Urine Glucose (UA) 250 H (Negative) mg/dL Urine Ketones Negative (Negative) mg/dL Urine Blood Moderate (2+) H (Negative) Urine Nitrite Negative (Negative) Ur Leukocyte Esterase Negative (Negative) Urine RBC 6-10 H (0-2) /HPF Urine WBC 0-5 (0-5) /HPF Ur Squamous Epith Cells 0-2 (0-2) /HPF Urine Bacteria None Seen (None Seen) Hyaline Casts 0-2 (0-2) /LPF Ethyl Alcohol < 10 mg/dL Independent Interpretation I performed an independent interpretation of an: EKG Interpretation: 113 beats per minute otherwise normal ECG without dysrhythmia, AV april blocks or ST-T changes to suspect underlying ACS, my independent interpretation Radiology Impression Discussion of test interpretation with radiology: I have reviewed the radiologist's reading. Radiologist Impression: Impression: No definite acute process. Mild fullness of the right-sided collecting system without current ureteral calculus. Recently passed calculus possible. Clinical correlation for urinary tract infection. No CT explanation for the patient's reported epigastric pain. Discharge Plan Discharge Clinical Impression: Abdominal pain, acute, epigastric, Sepsis Patient Disposition: Admitted As Inpatient Print Language: Hebrew
[2025-02-20 09:15] LABS: Glucose, Whole Blood 277 mg/dL (60-115)
[2025-02-20 09:26] LABS: MANUAL DIFF FLAG NO
[2025-02-20 09:27] LABS: Basophils Absolute Auto 0.1 X10*3/uL (0.0-0.2); Basophils Percent Auto 0.4 % (0-2); Eosinophils Percent Auto 0.1 % (0-4); Hematocrit 44.8 % (37.0-47.0); Hemoglobin 15.7 g/dl (12.0-16.0); Imm Gran Abs Auto 0.33 X10*3/uL (0.00-0.03); Imm Gran Pct Auto 1.6 % (0.0-0.4); Lymphocytes Absolute Auto 2.2 X10*3/uL (1.2-4.9); Lymphocytes Percent Auto 10.7 % (20-40); Mean Corpuscular Hemoglobin 31.2 pg (27.0-33.0); Mean Corpuscular Volume 88.9 fL (80.0-98.0); Mean Platelet Volume 9.2 fL (9.4-12.3); Monocytes Absolute Auto 0.7 X10*3/uL (0.1-1.2); Monocytes Percent Auto 3.3 % (2-11); Neutrophils Absolute Auto 17.1 x10*3/uL (2.0-8.3); Neutrophils Percent Auto 83.9 % (45-73); Platelet Count 382 X10*3/uL (160-400); Red Blood Count 5.04 X10*6/uL (4.20-5.50); Red Cell Distribution Width 13.1 % (11.0-16.0); White Blood Count 20.4 X10*3/uL (4.8-10.8)
[2025-02-20] MEDS: ondansetron HCL 4 MG/2 ML VIAL IVPUSH (09:38)
[2025-02-20] MEDS: 0.9 % Sodium Chloride 1,000 ML 999 ML IV ×2 (09:38→11:40)
[2025-02-20] MEDS: diazePAM 10 MG/2 ML CARTRIDGE 5 MG IVPUSH (09:38)
[2025-02-20] MEDS: Lidocaine HCl Viscous 2 % 15 ML SOLUTION PO (09:38)
[2025-02-20] MEDS: Magnesium Hydrox/Alum Hydrox 30 ML ORAL.SUSP PO (09:38)
[2025-02-20 09:42] LABS: Alanine Aminotransferase 42 U/L (0-31); Albumin Level 5.8 g/dL (3.5-5.0); Alkaline Phosphatase 98 U/L (39-117); Anion Gap 24 (12-20); Aspartate Amino Transferase 45 U/L (5-31); Bilirubin Total 0.6 mg/dL (0.0-1.0); Blood Urea Nitrogen 16 mg/dL (9-16); Calcium 11.1 mg/dL (8.4-10.2); Carbon Dioxide 17 mmol/L (22-29); Chloride 105 mmol/L (96-108); Creatinine Clr Calc Pharmacy 50.8; Estimated Glomerular Filt Rate 57; Glucose Random 267 mg/dL (60-115); Lipase 54 U/L (8-78); Potassium 3.6 mmol/L (3.3-5.1); Sodium 142 mmol/L (135-145); Total Protein 9.1 g/dL (6.5-8.0)
[2025-02-20 09:49] LABS: Troponin-I High Sensitivity 19.4 ng/L (<3.5-17.0)
[2025-02-20] MEDS: iohexoL 350 MG/ML 100 ML INFUS..BTL IV ×2 (10:00→10:32)
[2025-02-20 10:56] LABS: Ethanol < 10 mg/dL
[2025-02-20 10:58] LABS: Lactic Acid 5.7 mmol/L (0.5-2.0)
[2025-02-20] MEDS: cefTRIAXone sodium 1 GM VIAL IVPUSH (11:00)
[2025-02-20] MEDS: Morphine Sulfate 4 MG/ML CARTRIDGE IVPUSH ×2 (11:16→15:28)
[2025-02-20] MEDS: lisinopriL 20 MG TABLET PO (11:39)
[2025-02-20 12:05] LABS: Appearance Urine Clear; Color Urine Yellow; Glucose Urine UA 250 mg/dL (Negative); Leukocyte Esterase Urine Negative (Negative); Nitrite Urine Negative (Negative); Specific Gravity - Urine >= 1.030 (1.005-1.025); UMIC TRIGGER UACC YES; Urine Blood Moderate (2+) (Negative); Urine Ketones Negative (Negative); Urine Protein 300 (3+) mg/dL (Neg-Trace)
[2025-02-20 12:10] LABS: Bacteria Urine None Seen (None Seen); Hyaline Casts Urine 0-2 /LPF (0-2); Squamous Epithelial Cell Urine 0-2 /HPF (0-2); WBC Urine 0-5 /HPF (0-5)
[2025-02-20 12:27] LABS: Reflex Lactate? Lactic Acid Added
--- NOTE | 2025-02-20 13:01 | PC.NURSE ---
Pt received 2000ml of fluid prior. Will hang additional 70ml to meet sepsis protocol fluids
[2025-02-20 13:18] LABS: Amphetamine Screen Urine Not Detected (Not Detect); Barbiturates, Urine Not Detected (Not Detect); Benzodiazepines Screen Urine Not Detected (Not Detect); Buprenorphine Scr Not Detected (Not Detect); Cannabinoid Screen Urine POSITIVE (Not Detect); Cocaine Screen Urine Not Detected (Not Detect); Fentanyl, urine Not Detected (Not Detect); Methadone Screen, Urine Not Detected (Not Detect); Opiate Screen Urine POSITIVE (Not Detect); Oxycodone Screen Urine Not Detected (Not Detect); Phencyclidine Screen Urine Not Detected (Not Detect)
[2025-02-20 13:24] LABS: ~Lactic Acid-LAB USE ONLY 3.7 mmol/L (0.5-2.0)
--- NOTE | 2025-02-20 13:31 | PM.IMHP ---
History of Present Illness Date of Service: 02/20/25 Attending physician on admission: Umer Kramer Chief Complaint: Right flank pain Pt is a 64-year-old female with a PMH significant for?HTN, sciatica, hx of leg spasms, GERD, diet-controlled diabetes type 2, and MDD who presents to the ED with?lightheadedness, dizziness, diaphoresis, N/V, and worsening sciatica. Pt reports yesterday began developing lower back and flank pain, as well as worsening left sciatica pain. Later in the evening pt was in bed and developed nausea and vomiting and then subsequently nonproductive cough. Denies any SOB or difficulty breathing. Some chills but no measured fever. This morning pt was diaphoretic and went to the bathroom and felt lightheaded and dizzy, as if she were about to pass out. She called out to her family who then contacted EMS to bring her to the hospital for further evaluation. No chest pain/pressure, palpitations. In the ED pt was tachycardic up to 120, tachypneic up to 27, and hypertensive as high as 213/116. Labs were significant for leukocytosis 20.4, anion gap 24, initial lactic acid 5.7 with repeat 3.7, AST 45, ALT 42, serial troponins flat at 19.4 and 25.0. H&H WNL. No significant electrolyte abnormalities. UA negative for acute UTI. Tox screen positive for opiates and marijuana. CXR showed patchy left lower lobe opacities, concerning for atelectasis vs early/evolving infiltrate vs aspiration. CT?of abdomen/pelvis found no definite acute process, though showed mild fullness of right-sided collecting system without current ureteral calculus, suggestive of possible recently passed calculus. EKG demonstrated sinus tachycardia of 113 without signs of significant ST elevations or depressions. Pt was treated in the ED with sepsis bolus 2.07L IVF, Maalox, ondansetron, diazepam, lidocaine p.o., morphine, lisinopril, and ceftriaxone. Pt is admitted to the hospital for treatment and further evaluation of pt meeting sepsis criteria possibly secondary to aspiration from N/V from recently passed ureteral calculus. Review of Systems Review of Systems: Negative except for that which is stated in the HPI. [facility] Medical History Carpal tunnel syndrome on both sides Fall Elevated troponin level not due myocardial infarction Urinary incontinence in female Environmental allergies Arthrosis Chronic GERD Hypertension, essential Diabetes 1.5, managed as type 2 Depression, major, recurrent Lipid disorder Tobacco abuse Family History Father History of heart attack HTN (hypertension) CVD (cardiovascular disease) Diabetes mellitus Mother Alzheimer's disease Sister Breast cancer Sister Lung cancer Uterine cancer Sister Colon cancer Maternal Grandmother Colon cancer Surgical History History of hysteroscopy History of open reduction and internal fixation (ORIF) procedure Hx of cholecystectomy Social History Household Members: Children Housing: Apartment Do you presently have visiting nurse or other home services: Yes Alcohol intake: current Alcohol intake frequency: former alcohol drinker Comment: fell saturday, legs gave out Patient Tobacco Use Status: Current everyday Tobacco user Tobacco use type: Cigarette Cigarette Packs Per Day: 5 Cigarettes Per Day: 100.0 Years Smoked: 45 e-Cigarette/Vaping Use: Never Used Substance Use Type: Marijuana Advance Directives: No Advance Directives Information Provided: No service: No Current occupational status: retired Current occupation: Rt handed Cognitive needs: No Hearing needs: No Vision needs: No Meds Allergies Allergy/AdvReac Type Severity Reaction Status Date / Time oxycodone [OXYCODONE] Allergy Intermediate N/V, GI Verified 02/20/25 09:07 PAIN Active Medications: Current Medications Sodium Chloride (Ns) 2,070 mls @ 2,070 mls/hr 30 ml/kg infuse over 1 hr (2070 ml) IV .Q1H STA Stop: 02/20/25 13:44 Last Admin: 02/20/25 13:00 Dose: Not Given Home Medications ?Medication ?Instructions ?Recorded ?Confirmed ?Last Taken ?Type alendronate 70 mg tablet 70 mg PO TU 02/20/25 02/20/25 Unknown History meclizine 12.5 mg tablet 12.5 mg PO DAILY vertigo 02/20/25 02/20/25 02/19/25 History omeprazole 20 mg capsule,delayed 20 mg PO BEDTIME 02/20/25 02/20/25 Unknown History release Physical Exam Vital Signs and Narrative: Vital Signs: Last Vital Signs Temp 97.4 F 02/20/25 12:00 Pulse 108 H 02/20/25 12:00 Resp 16 02/20/25 12:00 BP 194/103 H 02/20/25 12:00 Pulse Ox 97 02/20/25 12:00 O2 Del Method Room Air 02/20/25 12:00 BMI result Body Mass Index 28.7 General: AOx3, no acute distress Resp: CTA bilaterally CVS: S1, S2, RRR GI: +BS, NT, no distention Skin: Warm, dry Neuro: Cranial nerves II-XII grossly intact bilaterally. Motor grossly intact bilaterally Extremities: No edema. Psych: Appropriate affect Results Labs 02/20/25 09:21 02/20/25 09:21 Labs: Laboratory Results - last 24 hr 02/20/25 02/20/25 02/20/25 09:04 09:21 10:21 MCV 88.9 MCH 31.2 MCHC 35.0 RDW 13.1 Plt Count 382 D MPV 9.2 L Immature Gran % (Auto) 1.6 H Neut % (Auto) 83.9 H Lymph % (Auto) 10.7 L [place] % (Auto) 3.3 Eos % (Auto) 0.1 Baso % (Auto) 0.4 Lymph # (Auto) 2.2 [place] # (Auto) 0.7 Eos # (Auto) 0.0 Baso # (Auto) 0.1 Abs Immat Gran (auto) 0.33 H Absolute Neuts (auto) 17.1 H Absolute Nucleated RBC 0.000 Nucleated RBC % (auto) 0.0 Anion Gap 24 H Estim Creat Clear Calc 50.8 Estimated GFR 57 POC Glucose 277 H Random Glucose 267 H Lactic Acid 5.7 H* Lactic Acid F/U @ 2Hr Calcium 11.1 H D Total Bilirubin 0.6 AST 45 H ALT 42 H Alkaline Phosphatase 98 Troponin I High Sens 19.4 H 25.0 H Total Protein 9.1 H Albumin 5.8 H Lipase 54 Urine Color Urine Appearance Urine pH Ur Specific [place] Urine Protein Urine Glucose (UA) Urine Ketones Urine Blood Urine Nitrite Ur Leukocyte Esterase Urine RBC Urine WBC Ur Squamous Epith Cells Urine Bacteria Hyaline Casts Urine Opiates Screen Ur Buprenorphine Scrn Ur Oxycodone Screen Urine Methadone Screen Urine Fentanyl Screen Ur Barbiturates Screen Ur Phencyclidine Scrn Ur Amphetamines Screen U Benzodiazepines Scrn Urine Cocaine Screen U Marijuana (THC) Screen Ethyl Alcohol 02/20/25 02/20/25 02/20/25 10:22 11:56 13:02 MCV MCH MCHC RDW Plt Count MPV Immature Gran % (Auto) Neut % (Auto) Lymph % (Auto) [place] % (Auto) Eos % (Auto) Baso % (Auto) Lymph # (Auto) [place] # (Auto) Eos # (Auto) Baso # (Auto) Abs Immat Gran (auto) Absolute Neuts (auto) Absolute Nucleated RBC Nucleated RBC % (auto) Anion Gap Estim Creat Clear Calc Estimated GFR POC Glucose Random Glucose Lactic Acid Lactic Acid F/U @ 2Hr 3.7 H* Calcium Total Bilirubin AST ALT Alkaline Phosphatase Troponin I High Sens Total Protein Albumin Lipase Urine Color Yellow Urine Appearance Clear Urine pH 7.0 Ur Specific [place] >= 1.030 H Urine Protein 300 (3+) H Urine Glucose (UA) 250 H Urine Ketones Negative Urine Blood Moderate (2+) H Urine Nitrite Negative Ur Leukocyte Esterase Negative Urine RBC 6-10 H Urine WBC 0-5 Ur Squamous Epith Cells 0-2 Urine Bacteria None Seen Hyaline Casts 0-2 Urine Opiates Screen POSITIVE H Ur Buprenorphine Scrn Not Detected Ur Oxycodone Screen Not Detected Urine Methadone Screen Not Detected Urine Fentanyl Screen Not Detected Ur Barbiturates Screen Not Detected Ur Phencyclidine Scrn Not Detected Ur Amphetamines Screen Not Detected U Benzodiazepines Scrn Not Detected Urine Cocaine Screen Not Detected U Marijuana (THC) Screen POSITIVE H Ethyl Alcohol < 10 Assessment and Plan (1) Sepsis: Status: Acute (2) Nausea & vomiting: Status: Acute Plan Pt is a 64-year-old female with a PMH significant for?HTN, sciatica, hx of leg spasms, GERD, and MDD who presents to the ED with?lightheadedness, dizziness, diaphoresis, N/V, and worsening sciatica. Pt is admitted to the hospital for treatment and further evaluation of pt meeting sepsis criteria possibly secondary to aspiration from N/V from recently passed ureteral calculus. Question of aspiration meeting SIRS criteria Pt with N/V, CXR showing patchy left lower lobe opacities, possible for early/evolving infiltrate vs aspiration Meets sepsis criteria with leukocytosis, tachycardia, and tachypnea; lactic acid 5.7 with repeat down trending to 3.7 after fluids Pt given sepsis bolus fluids and started on broad-spectrum antibiotics Continue ceftriaxone, started 02/20/2025 Follow blood cultures Likely passed urethral calculus Pt with N/V, episode of lightheadedness/dizziness/diaphoresis while on the toilet earlier today CT showing mild fullness of right-sided collecting system without current urethral calculus, possibly secondary to recently passed calculus UA negative Antiemetics, analgesics, being covered with ceftriaxone as above Hypertensive urgency Patient's BP as high as 213/116 Likely secondary to pain Pt given lisinopril 20 mg in the ED Currently better controlled, latest 139/85 Continue lisinopril Left-sided sciatica Worsened since yesterday Pt has not been on gabapentin for over 1 year Will trial gabapentin 100 mg t.i.d. p.r.n. Continue cyclobenzaprine Transaminitis Mild, chronic, at baseline Elevated troponin Initial troponin 19.5 with repeat flat and 25.0 Pt asymptomatic, EKG without ischemic changes Diet-controlled diabetes type 2 Previously on metformin Random glucose elevated at 277 at time o fpresentation Last A1c 6.[address] on sliding scale insulin, diabetic diet Vertigo Continue meclizine GERD PPI Mood disorder Continue paroxetine Full Code Attending:?Dr. Kramer DVT Prophylaxis: Lovenox Pt will require a hospitalization of at least two nights for treatment of?possible aspiration with sepsis secondary to nausea, vomiting, and abdominal pain from recently passed urethral calculus. Pt will require IV antibiotics, analgesics, and antiemetics. Quality Stroke Does the patient have a stroke diagnosis?: No VTE Prior VTE?: No VTE Risk Level:: Medical - moderate - high VTE Device Contraindication: Treatment Not Indicated VTE Drug Contraindication: N/A - Med Ordered
[2025-02-20 13:51] LABS: Influenza A PCR NEGATIVE (Negative); Influenza B PCR NEGATIVE (Negative); Resp Syncy Virus RNA Qual PCR NEGATIVE (Negative); SARS COV2 PCR INHOUSE NEGATIVE (Negative)
[2025-02-20 14:04] LABS: Cancel Lactic Acid Canceled
--- NOTE | 2025-02-20 14:46 | PHA.MEDREC ---
Addendum entered by Liam Dunlap PharmD 02/20/25 14:50: reviewed Original Note: Pharmacy Consult ? Medication Reconciliation Pharmacy has completed the medication reconciliation. Spoke with daughter at bedside to confirm medications. Patient did not have alendronate this week (usually on Tuesdays) because she ran out and is in need of more refills. She takes omeprazole at bedtime. She takes meclizine daily for vertigo. Her daughter says she last took morning medications yesterday.
[2025-02-20] MEDS: Insulin Regular, Human 100 UNIT/ML 10 ML VIAL IVPUSH (14:48)
[2025-02-20] MEDS: Gabapentin 100 MG CAPSULE PO (15:27)
[2025-02-20] MEDS: Enoxaparin Sodium 40 MG/0.4 ML SYRINGE SUBCUT (16:14)
[2025-02-20] MEDS: 0.9 % Sodium Chloride Flush 3 ML SYRINGE IVFLUSH (16:14)
--- NOTE | 2025-02-20 16:27 | PC.NURSE ---
Pt has been diaphoretic since arrival. Pt resting hr 110s. When pt gets up her hr goes to 150s. Pt has anxious and restless.
[2025-02-20] MEDS: Labetalol HCL 100 MG/20 ML VIAL IVPUSH (16:35)
--- NOTE | 2025-02-20 16:47 | PC.NURSE ---
Pt states she feels less anxious and appearance has improved. Pt no longer diaphoretic and more alert
[2025-02-20 18:27] LABS: Troponin-I High Sensitivity 161.6 ng/L (<3.5-17.0)
--- NOTE | 2025-02-20 18:48 | PM.EVENT ---
Event Note Date of Service: 02/20/25 Event Note: Notified by nursing that pt was diaphoretic, anxious, tachycardic in the 130s 150s, and BP as high as 204/113. Pt received labetalol IV 5 mg. Repeat EKG showed new slight ST depression in lateral leads, and repeat troponin with delta 25.0-->161.6. Upon physical examination pt appeared calm and reported feeling much better after labetalol. Heart rate in the 80s to 90s and BP 111/70. Pt denied chest pain or pressure. Will administer additional Lovenox 30 mg subQ to achieve therapeutic dose tonight. For tomorrow will repeat troponin, get Cardiology consult, and re-evaluate for possible additional anticoagulation. Time Spent With Patient Time: Total time managing care of this patient today ____ minutes.
[2025-02-20 20:30] LABS: Glucose, Whole Blood 204 mg/dL (60-115)
[2025-02-20] MEDS: Omeprazole 20 MG CAPSULE.DR PO (20:45)
[2025-02-20] MEDS: Insulin Lispro 100 UNIT/ML 3 ML VIAL SUBCUT (20:45)
[2025-02-20] MEDS: Enoxaparin Sodium 30 MG/0.3 ML SYRINGE SUBCUT (20:45)
[2025-02-20] MEDS: Cyclobenzaprine HCl 10 MG TABLET PO (21:34)
[2025-02-21 03:07] VITALS: BP 118/78; PULSE 99; RESP 16; TEMP 36.4; O2SAT 92
[2025-02-21 07:43] LABS: Glucose, Whole Blood 153 mg/dL (60-115)
[2025-02-21 07:53] LABS: Hematocrit 39.8 % (37.0-47.0); Hemoglobin 13.6 g/dl (12.0-16.0); Mean Corpuscular HGB Conc 34.2 g/dl (31.0-35.0); Mean Corpuscular Hemoglobin 31.3 pg (27.0-33.0); Mean Corpuscular Volume 91.7 fL (80.0-98.0); Mean Platelet Volume 9.7 fL (9.4-12.3); Platelet Count 341 X10*3/uL (160-400); Red Blood Count 4.34 X10*6/uL (4.20-5.50); Red Cell Distribution Width 13.4 % (11.0-16.0); White Blood Count 17.9 X10*3/uL (4.8-10.8)
[2025-02-21 07:58] VITALS: BP 126/69; PULSE 88; RESP 18; TEMP 36.4; O2SAT 94
[2025-02-21 08:08] LABS: Anion Gap 20 (12-20); Blood Urea Nitrogen 24 mg/dL (9-16); Carbon Dioxide 19 mmol/L (22-29); Chloride 110 mmol/L (96-108); Creatinine Clr Calc Pharmacy 50.2; Estimated Glomerular Filt Rate 55; Glucose Random 157 mg/dL (60-115); Potassium 3.6 mmol/L (3.3-5.1); Sodium 145 mmol/L (135-145)
[2025-02-21 08:21] LABS: Troponin-I High Sensitivity 118.1 ng/L (<3.5-17.0)
[2025-02-21] MEDS: Insulin Lispro 100 UNIT/ML 3 ML VIAL SUBCUT ×2 (08:23→16:35)
[2025-02-21] MEDS: Aspirin Enteric Coated 81 MG TABLET.DR PO (08:24)
[2025-02-21] MEDS: Meclizine HCl 12.5 MG TABLET PO (08:27)
[2025-02-21] MEDS: lisinopriL 20 MG TABLET PO (08:27)
[2025-02-21] MEDS: Gabapentin 100 MG CAPSULE PO (08:27)
[2025-02-21] MEDS: PARoxetine HCL 40 MG TABLET PO (08:27)
[2025-02-21] MEDS: Cholecalciferol (Vitamin D3) 25 MCG TABLET PO (08:27)
[2025-02-21] MEDS: Loratadine 10 MG TABLET PO (08:28)
[2025-02-21] MEDS: 0.9 % Sodium Chloride Flush 3 ML SYRINGE IVFLUSH ×2 (08:29→16:35)
--- NOTE | 2025-02-21 09:05 | HO.PM.IMPN ---
Subjective Subjective Date of Service: 02/21/25 Interval History: feeling better Physical Exam Vital Signs: Vital Signs: Last Vital Signs Temp 97.6 F 02/21/25 07:58 Pulse 88 02/21/25 07:58 Resp 18 02/21/25 07:58 BP 126/69 02/21/25 07:58 Pulse Ox 94 02/21/25 07:58 O2 Del Method Room Air 02/21/25 07:58 BMI result Body Mass Index 29.8 General: AO X 3, no acute distress Resp: CTA bilateral, no accessory muscles used CVS: S1,S2,RRR GI: soft, non tender, non distended Neuro: motor grossly intact, alert Psych: appropriate affect, appropriate insight Objective Data Active Medications Acetaminophen (Acetaminophen 325 Mg Tablet) 650 mg PO Q6H PRN PRN Reason: Pain, Mild 1-3,fever,headache Aspirin (Aspirin Enteric Coated 81 Mg Tablet.) 81 mg PO DAILY [facility] Last Admin: 02/21/25 08:24 Dose: 81 mg Documented By: NORM Calcium Carbonate (Calcium Carbonate 750 Mg Tab.Chew) 750 mg PO Q4H PRN PRN Reason: Heartburn Ceftriaxone Sodium (Ceftriaxone Sodium 1 Gm Vial) 1 gm IVPUSH Q24H [facility] Cyclobenzaprine HCl (Cyclobenzaprine Hcl 10 Mg Tablet) 10 mg PO BEDTIME PRN PRN Reason: muscle spasm Last Admin: 02/20/25 21:34 Dose: 10 mg Documented By: JACKIE Dextrose (Dextrose 50 % 25 Gm/50 Ml Syringe) 25 gm IVPUSH Q15M PRN; Protocol PRN Reason: per Hypoglycemia Standing Ord. Enoxaparin Sodium (Enoxaparin Sodium 40 Mg/0.4 Ml Syringe) 40 mg SUBCUT Q24H [facility] Last Admin: 02/20/25 16:14 Dose: 40 mg Documented By: GERDA Gabapentin (Gabapentin 100 Mg Capsule) 100 mg PO BID PRN PRN Reason: Neuropathy/sciatica Last Admin: 02/21/25 08:27 Dose: 100 mg Documented By: NORM Glucose (Glucose Gel 15 Gm Gel..Gram.) 15 gm PO Q15M PRN; Protocol PRN Reason: per Hypoglycemia Standing Ord. Insulin Human Lispro (Insulin Lispro 100 Unit/Ml 3 Ml Vial) 0 unit SUBCUT QIDACHS [facility]; Protocol Last Admin: 02/21/25 08:23 Dose: 2 unit Documented By: NORM Labetalol HCl (Labetalol Hcl 100 Mg/20 Ml Vial) 5 mg IVPUSH Q6H PRN PRN Reason: CBP >180 Last Admin: 02/20/25 16:35 Dose: 5 mg Documented By: GERDA Lisinopril (Lisinopril 20 Mg Tablet) 20 mg PO DAILY [facility]; Protocol Last Admin: 02/21/25 08:27 Dose: 20 mg Documented By: NORM Loratadine (Loratadine 10 Mg Tablet) 10 mg PO DAILY [facility] Last Admin: 02/21/25 08:28 Dose: 10 mg Documented By: NORM Magnesium Hydroxide (Milk Of Magnesia 30 Ml Oral.Susp) 30 ml PO DAILY PRN PRN Reason: Constipation Meclizine HCl (Meclizine Hcl 12.5 Mg Tablet) 12.5 mg PO DAILY [facility] Last Admin: 02/21/25 08:27 Dose: 12.5 mg Documented By: NORM Melatonin (Melatonin 3 Mg Tablet) 6 mg PO BEDTIME PRN PRN Reason: Insomnia Morphine Sulfate (Morphine Sulfate 4 Mg/Ml Cartridge) 4 mg IVPUSH Q4H PRN; Protocol PRN Reason: Pain, Severe (Pain Scale 7-10) Last Admin: 02/20/25 15:28 Dose: 4 mg Documented By: GERDA Omeprazole (Omeprazole 20 Mg Capsule.Dr) 20 mg PO BEDTIME [facility] Last Admin: 02/20/25 20:45 Dose: 20 mg Documented By: JACKIE Ondansetron HCl (Ondansetron Hcl 4 Mg/2 Ml Vial) 4 mg IVPUSH Q8H PRN PRN Reason: Nausea and Vomiting Paroxetine HCl (Paroxetine Hcl 40 Mg Tablet) 40 mg PO DAILY [facility] Last Admin: 02/21/25 08:27 Dose: 40 mg Documented By: NORM Sodium Chloride (0.9 % Sodium Chloride Flush 3 Ml Syringe) 3 ml IVFLUSH QSHIFT [facility] Last Admin: 02/21/25 08:29 Dose: 3 ml Documented By: NORM Vitamin D (Cholecalciferol (Vitamin D3) 25 Mcg Tablet) 25 mcg PO DAILY [facility] Last Admin: 02/21/25 08:27 Dose: 25 mcg Documented By: NORM Labs 02/21/25 06:52 02/21/25 06:52 Labs: Laboratory Results - last 24 hr 02/20/25 02/20/25 02/20/25 09:04 09:21 10:21 MCV 88.9 MCH 31.2 MCHC 35.0 RDW 13.1 Plt Count 382 D MPV 9.2 L Immature Gran % (Auto) 1.6 H Neut % (Auto) 83.9 H Lymph % (Auto) 10.7 L [place] % (Auto) 3.3 Eos % (Auto) 0.1 Baso % (Auto) 0.4 Lymph # (Auto) 2.2 [place] # (Auto) 0.7 Eos # (Auto) 0.0 Baso # (Auto) 0.1 Abs Immat Gran (auto) 0.33 H Absolute Neuts (auto) 17.1 H Absolute Nucleated RBC 0.000 Nucleated RBC % (auto) 0.0 Anion Gap 24 H Estim Creat Clear Calc 50.8 Estimated GFR 57 POC Glucose 277 H Random Glucose 267 H Lactic Acid 5.7 H* Lactic Acid F/U @ 2Hr Calcium 11.1 H D Total Bilirubin 0.6 AST 45 H ALT 42 H Alkaline Phosphatase 98 Troponin I High Sens 19.4 H 25.0 H Total Protein 9.1 H Albumin 5.8 H Lipase 54 Urine Color Urine Appearance Urine pH Ur Specific [place] Urine Protein Urine Glucose (UA) Urine Ketones Urine Blood Urine Nitrite Ur Leukocyte Esterase Urine RBC Urine WBC Ur Squamous Epith Cells Urine Bacteria Hyaline Casts Urine Opiates Screen Ur Buprenorphine Scrn Ur Oxycodone Screen Urine Methadone Screen Urine Fentanyl Screen Ur Barbiturates Screen Ur Phencyclidine Scrn Ur Amphetamines Screen U Benzodiazepines Scrn Urine Cocaine Screen U Marijuana (THC) Screen Ethyl Alcohol Influenza Type A (PCR) Influenza Type B (PCR) RSV RNA Qual (PCR) SARS-CoV-2 RNA (RT-PCR) 02/20/25 02/20/25 02/20/25 10:22 11:56 13:02 MCV MCH MCHC RDW Plt Count MPV Immature Gran % (Auto) Neut % (Auto) Lymph % (Auto) [place] % (Auto) Eos % (Auto) Baso % (Auto) Lymph # (Auto) [place] # (Auto) Eos # (Auto) Baso # (Auto) Abs Immat Gran (auto) Absolute Neuts (auto) Absolute Nucleated RBC Nucleated RBC % (auto) Anion Gap Estim Creat Clear Calc Estimated GFR POC Glucose Random Glucose Lactic Acid Lactic Acid F/U @ 2Hr 3.7 H* Calcium Total Bilirubin AST ALT Alkaline Phosphatase Troponin I High Sens Total Protein Albumin Lipase Urine Color Yellow Urine Appearance Clear Urine pH 7.0 Ur Specific [place] >= 1.030 H Urine Protein 300 (3+) H Urine Glucose (UA) 250 H Urine Ketones Negative Urine Blood Moderate (2+) H Urine Nitrite Negative Ur Leukocyte Esterase Negative Urine RBC 6-10 H Urine WBC 0-5 Ur Squamous Epith Cells 0-2 Urine Bacteria None Seen Hyaline Casts 0-2 Urine Opiates Screen POSITIVE H Ur Buprenorphine Scrn Not Detected Ur Oxycodone Screen Not Detected Urine Methadone Screen Not Detected Urine Fentanyl Screen Not Detected Ur Barbiturates Screen Not Detected Ur Phencyclidine Scrn Not Detected Ur Amphetamines Screen Not Detected U Benzodiazepines Scrn Not Detected Urine Cocaine Screen Not Detected U Marijuana (THC) Screen POSITIVE H Ethyl Alcohol < 10 Influenza Type A (PCR) NEGATIVE Influenza Type B (PCR) NEGATIVE RSV RNA Qual (PCR) NEGATIVE SARS-CoV-2 RNA (RT-PCR) NEGATIVE 02/20/25 02/20/25 02/21/25 16:46 20:18 06:52 MCV 91.7 MCH 31.3 MCHC 34.2 RDW 13.4 Plt Count 341 MPV 9.7 Immature Gran % (Auto) Neut % (Auto) Lymph % (Auto) [place] % (Auto) Eos % (Auto) Baso % (Auto) Lymph # (Auto) [place] # (Auto) Eos # (Auto) Baso # (Auto) Abs Immat Gran (auto) Absolute Neuts (auto) Absolute Nucleated RBC 0.000 Nucleated RBC % (auto) 0.0 Anion Gap 20 Estim Creat Clear Calc 50.2 Estimated GFR 55 POC Glucose 204 H Random Glucose 157 H Lactic Acid Lactic Acid F/U @ 2Hr Calcium 9.0 D Total Bilirubin AST ALT Alkaline Phosphatase Troponin I High Sens 161.6 H* D 118.1 H* Total Protein Albumin Lipase Urine Color Urine Appearance Urine pH Ur Specific [place] Urine Protein Urine Glucose (UA) Urine Ketones Urine Blood Urine Nitrite Ur Leukocyte Esterase Urine RBC Urine WBC Ur Squamous Epith Cells Urine Bacteria Hyaline Casts Urine Opiates Screen Ur Buprenorphine Scrn Ur Oxycodone Screen Urine Methadone Screen Urine Fentanyl Screen Ur Barbiturates Screen Ur Phencyclidine Scrn Ur Amphetamines Screen U Benzodiazepines Scrn Urine Cocaine Screen U Marijuana (THC) Screen Ethyl Alcohol Influenza Type A (PCR) Influenza Type B (PCR) RSV RNA Qual (PCR) SARS-CoV-2 RNA (RT-PCR) 02/21/25 07:35 MCV MCH MCHC RDW Plt Count MPV Immature Gran % (Auto) Neut % (Auto) Lymph % (Auto) [place] % (Auto) Eos % (Auto) Baso % (Auto) Lymph # (Auto) [place] # (Auto) Eos # (Auto) Baso # (Auto) Abs Immat Gran (auto) Absolute Neuts (auto) Absolute Nucleated RBC Nucleated RBC % (auto) Anion Gap Estim Creat Clear Calc Estimated GFR POC Glucose 153 H Random Glucose Lactic Acid Lactic Acid F/U @ 2Hr Calcium Total Bilirubin AST ALT Alkaline Phosphatase Troponin I High Sens Total Protein Albumin Lipase Urine Color Urine Appearance Urine pH Ur Specific [place] Urine Protein Urine Glucose (UA) Urine Ketones Urine Blood Urine Nitrite Ur Leukocyte Esterase Urine RBC Urine WBC Ur Squamous Epith Cells Urine Bacteria Hyaline Casts Urine Opiates Screen Ur Buprenorphine Scrn Ur Oxycodone Screen Urine Methadone Screen Urine Fentanyl Screen Ur Barbiturates Screen Ur Phencyclidine Scrn Ur Amphetamines Screen U Benzodiazepines Scrn Urine Cocaine Screen U Marijuana (THC) Screen Ethyl Alcohol Influenza Type A (PCR) Influenza Type B (PCR) RSV RNA Qual (PCR) SARS-CoV-2 RNA (RT-PCR) Assessment and Plan (1) Nausea & vomiting: Status: Acute Plan 64F PMH hypertension, sciatica, GERD, diabetes, mood presented with dizziness, nausea, right flank pain Sirs Possible sepsis due to UTI due to a passed stone versus aspiration, versus dehydration and distress from nausea Continue ceftriaxone, follow up cultures Nausea and vomiting Improved with IV hydration NSTEMI likely demand cardio eval hypertensive urgency improved, conitnue lisinpoirl dm insulin mood disorder paxil dvt rpophylaxis -lovenox full code reason for continued hospitalization:cultures Quality Stroke Does the patient have a stroke diagnosis?: No VTE Prior VTE?: No VTE Risk Level:: Medical - moderate - high VTE Device Contraindication: Treatment Not Indicated VTE Drug Contraindication: N/A - Med Ordered
--- NOTE | 2025-02-21 09:43 | MHC.CM.PN ---
CM met with Patient at bedside and addressed IMM with her; original was given to Patient and a copy has been placed on the chart. Patient lives in an apartment with her Son, she uses a cane at times, has a WATCH TECHNICIAN & VNA. Patient is unsure of the names of the 2 agencies; CM left a message for Daughter/HCP/[employer] @ [phone], requesting the names.(it is not possible on Saturday to clarify vna name with the PCP/Dr. Ema Perry).Home/resume said services is Patient's goal and CM has initiated and will follow for dc planning. Daughter will transport to home at time of dc.
[2025-02-21] MEDS: cefTRIAXone sodium 1 GM VIAL IVPUSH (10:31)
[2025-02-21] MEDS: Morphine Sulfate 4 MG/ML CARTRIDGE IVPUSH ×3 (10:31→20:52)
[2025-02-21 11:33] LABS: Glucose, Whole Blood 144 mg/dL (60-115)
[2025-02-21 12:00] VITALS: BP 126/68; PULSE 100; RESP 18; TEMP 36.6; O2SAT 93
--- NOTE | 2025-02-21 12:02 | P.CONCA_ITS ---
History of Present Illness History of Present Illness Date of Service: 02/21/25 Chief complaint: Sepsis from likely aspiration Narrative: This is a cardiology consultation regarding elevated troponins. Patient has been admitted to the hospital for various symptoms including lightheadedness, nausea, vomiting and some flank pain. In this context, there was question of urethral calculus/aspiration/SIRS. Apparently, blood pressure went quite high into the 200s and thought to be secondary to pain. Patient herself states that when her pressure went quite high she was not a lot of pain in the flank area. Following this, troponins were checked and they were slightly elevated. Currently, patient states that she is actually much better. She still has the flank pain but not as much. She does not have any prior cardiac history like coronary disease or myocardial infarction or cardiomyopathy or in fact anything else of that nature. Review of Systems 2 Review of Systems: Yes all other systems are reviewed and are negative Constitutional: Constitutional: Reports as per HPI and Reports no additional constitutional complaints Eyes: Eyes: Reports as per HPI and Denies no additional eye complaints ENT: Denies system reviewed and no additional complaints, except as documented and Reports as per HPI Cardiovascular: Cardiovascular: Reports as per HPI, Reports no additional cardiovascular complaints, Denies acrocyanosis, Denies cool extremities, Denies chest pain, Denies leg edema, Denies lightheadedness, Denies palpitations and Denies dyspnea Respiratory: Respiratory: Reports as per HPI, Denies no additional respiratory complaints and Denies dyspnea Gastrointestinal: Gastrointestinal: Reports as per HPI, Denies no additional gastrointestinal complaints and Reports abdominal pain Genitourinary: Genitourinary: Reports as per HPI Musculoskeletal: Musculoskeletal: Reports no additional musculoskeletal complaints and Reports as per HPI Integumentary/Breasts: Skin/Breast: Reports system reviewed and no additional complaints, except as docu Neurologic: Reports system reviewed and no additional complaints, except as documented and Reports as per HPI Psychiatric: Psychiatric: Reports no additional psychiatric complaints and Reports as per HPI Endocrine: Endocrine: Reports no additional endocrine complaints, Reports as per HPI and Denies palpitations Hematologic/Lymphatic: Hematologic/Lymphatic: Reports no additional hematologic/lymphatic complaints and Reports as per HPI Allergic/Immunologic: Allergic/Immunologic: Reports no additional allergic/immunologic complaints and Reports as per HPI [facility] Past Medical History Medical History Carpal tunnel syndrome on both sides Fall Elevated troponin level not due myocardial infarction Urinary incontinence in female Environmental allergies Arthrosis Chronic GERD Hypertension, essential Diabetes 1.5, managed as type 2 Depression, major, recurrent Lipid disorder Tobacco abuse Family History Family History Father History of heart attack HTN (hypertension) CVD (cardiovascular disease) Diabetes mellitus Mother Alzheimer's disease Sister Breast cancer Sister Lung cancer Uterine cancer Sister Colon cancer Maternal Grandmother Colon cancer Surgical History Surgical History History of hysteroscopy History of open reduction and internal fixation (ORIF) procedure Hx of cholecystectomy Social History Social History Household Members: Children Housing: Apartment Do you presently have visiting nurse or other home services: Yes Alcohol intake: current Alcohol intake frequency: former alcohol drinker Comment: fell saturday, legs gave out Patient Tobacco Use Status: Current someday Tobacco user Tobacco use type: Cigarette Cigarette Packs Per Day: 5 Cigarettes Per Day: 5 Years Smoked: 45 e-Cigarette/Vaping Use: Never Used Substance Use Type: Marijuana service: No Current occupational status: retired Current occupation: Rt handed Cognitive needs: No Hearing needs: No Vision needs: No Meds Allergies Allergy/AdvReac Type Severity Reaction Status Date / Time oxycodone [OXYCODONE] Allergy Intermediate N/V, GI Verified 02/20/25 09:07 PAIN Active Medications: Current Medications Acetaminophen (Acetaminophen 325 Mg Tablet) 650 mg PO Q6H PRN PRN Reason: Pain, Mild 1-3,fever,headache Aspirin (Aspirin Enteric Coated 81 Mg Tablet.Dr) 81 mg PO DAILY [facility] Last Admin: 02/21/25 08:24 Dose: 81 mg Calcium Carbonate (Calcium Carbonate 750 Mg Tab.Chew) 750 mg PO Q4H PRN PRN Reason: Heartburn Ceftriaxone Sodium (Ceftriaxone Sodium 1 Gm Vial) 1 gm IVPUSH Q24H [facility] Last Admin: 02/21/25 10:31 Dose: 1 gm Cyclobenzaprine HCl (Cyclobenzaprine Hcl 10 Mg Tablet) 10 mg PO BEDTIME PRN PRN Reason: muscle spasm Last Admin: 02/20/25 21:34 Dose: 10 mg Dextrose (Dextrose 50 % 25 Gm/50 Ml Syringe) 25 gm IVPUSH Q15M PRN; Protocol PRN Reason: per Hypoglycemia Standing Ord. Enoxaparin Sodium (Enoxaparin Sodium 40 Mg/0.4 Ml Syringe) 40 mg SUBCUT Q24H [facility] Last Admin: 02/20/25 16:14 Dose: 40 mg Gabapentin (Gabapentin 100 Mg Capsule) 100 mg PO BID PRN PRN Reason: Neuropathy/sciatica Last Admin: 02/21/25 08:27 Dose: 100 mg Glucose (Glucose Gel 15 Gm Gel..Gram.) 15 gm PO Q15M PRN; Protocol PRN Reason: per Hypoglycemia Standing Ord. Insulin Human Lispro (Insulin Lispro 100 Unit/Ml 3 Ml Vial) 0 unit SUBCUT QIDACHS [facility]; Protocol Last Admin: 02/21/25 11:49 Dose: Not Given Labetalol HCl (Labetalol Hcl 100 Mg/20 Ml Vial) 5 mg IVPUSH Q6H PRN PRN Reason: CBP >180 Last Admin: 02/20/25 16:35 Dose: 5 mg Lisinopril (Lisinopril 20 Mg Tablet) 20 mg PO DAILY [facility]; Protocol Last Admin: 02/21/25 08:27 Dose: 20 mg Loratadine (Loratadine 10 Mg Tablet) 10 mg PO DAILY [facility] Last Admin: 02/21/25 08:28 Dose: 10 mg Magnesium Hydroxide (Milk Of Magnesia 30 Ml Oral.Susp) 30 ml PO DAILY PRN PRN Reason: Constipation Meclizine HCl (Meclizine Hcl 12.5 Mg Tablet) 12.5 mg PO DAILY [facility] Last Admin: 02/21/25 08:27 Dose: 12.5 mg Melatonin (Melatonin 3 Mg Tablet) 6 mg PO BEDTIME PRN PRN Reason: Insomnia Morphine Sulfate (Morphine Sulfate 4 Mg/Ml Cartridge) 4 mg IVPUSH Q4H PRN; Protocol PRN Reason: Pain, Severe (Pain Scale 7-10) Last Admin: 02/21/25 10:31 Dose: 4 mg Omeprazole (Omeprazole 20 Mg Capsule.Dr) 20 mg PO BEDTIME [facility] Last Admin: 02/20/25 20:45 Dose: 20 mg Ondansetron HCl (Ondansetron Hcl 4 Mg/2 Ml Vial) 4 mg IVPUSH Q8H PRN PRN Reason: Nausea and Vomiting Paroxetine HCl (Paroxetine Hcl 40 Mg Tablet) 40 mg PO DAILY [facility] Last Admin: 02/21/25 08:27 Dose: 40 mg Sodium Chloride (0.9 % Sodium Chloride Flush 3 Ml Syringe) 3 ml IVFLUSH QSHIFT [facility] Last Admin: 02/21/25 08:29 Dose: 3 ml Vitamin D (Cholecalciferol (Vitamin D3) 25 Mcg Tablet) 25 mcg PO DAILY [facility] Last Admin: 02/21/25 08:27 Dose: 25 mcg Home Medications ?Medication ?Instructions ?Recorded ?Confirmed ?Last Taken ?Type alendronate 70 mg tablet 70 mg PO TU 02/20/25 02/20/25 Unknown History meclizine 12.5 mg tablet 12.5 mg PO DAILY vertigo 02/20/25 02/20/25 02/19/25 History omeprazole 20 mg capsule,delayed 20 mg PO BEDTIME 02/20/25 02/20/25 Unknown History release Physical Exam 2 Vital Signs: Vital Signs: Last Vital Signs Temp 97.6 F 02/21/25 07:58 Pulse 88 02/21/25 07:58 Resp 18 02/21/25 07:58 BP 126/69 02/21/25 07:58 Pulse Ox 94 02/21/25 07:58 O2 Del Method Room Air 02/21/25 07:58 BMI result Body Mass Index 29.8 Const: General: comfortable and no acute distress O rientation/consciousness: patient oriented x3 HEENT: Other: Unremarkable Head: Yes normal to inspection Neck: Neck: Yes normal visual inspection Chest: Chest palpation & inspection: normal inspection of the chest Resp: Auscultation: clear to auscultation bilaterally Cardio: Palpation: normal PMI Heart sounds: S1 normal heart sound present, S2 normal heart sound present, no gallops, no murmurs and no rubs GI: Palpation (GI): Soft to palpation Back/Spine/Pelvis: Other: unremarkable Skin: General skin exam: no rashes or lesions noted Neuro: General: patient oriented x3 Extrem: General: Yes normal to inspection Psych: Mental Status: mental status grossly normal Objective Labs and Meds 02/21/25 06:52 02/21/25 06:52 Lab results: Laboratory Results - last 24 hr 02/20/25 02/20/25 02/20/25 11:56 13:02 16:46 WBC RBC Hgb Hct MCV MCH MCHC RDW Plt Count MPV Absolute Nucleated RBC Nucleated RBC % (auto) Sodium Potassium Chloride Carbon Dioxide Anion Gap BUN Creatinine Estim Creat Clear Calc Estimated GFR POC Glucose Random Glucose Lactic Acid F/U @ 2Hr 3.7 H* Calcium Troponin I High Sens 161.6 H* D Urine Color Yellow Urine Appearance Clear Urine pH 7.0 Ur Specific [place] >= 1.030 H Urine Protein 300 (3+) H Urine Glucose (UA) 250 H Urine Ketones Negative Urine Blood Moderate (2+) H Urine Nitrite Negative Ur Leukocyte Esterase Negative Urine RBC 6-10 H Urine WBC 0-5 Ur Squamous Epith Cells 0-2 Urine Bacteria None Seen Hyaline Casts 0-2 Urine Opiates Screen POSITIVE H Ur Buprenorphine Scrn Not Detected Ur Oxycodone Screen Not Detected Urine Methadone Screen Not Detected Urine Fentanyl Screen Not Detected Ur Barbiturates Screen Not Detected Ur Phencyclidine Scrn Not Detected Ur Amphetamines Screen Not Detected U Benzodiazepines Scrn Not Detected Urine Cocaine Screen Not Detected U Marijuana (THC) Screen POSITIVE H Influenza Type A (PCR) NEGATIVE Influenza Type B (PCR) NEGATIVE RSV RNA Qual (PCR) NEGATIVE SARS-CoV-2 RNA (RT-PCR) NEGATIVE 02/20/25 02/21/25 02/21/25 20:18 06:52 07:35 WBC 17.9 H RBC 4.34 Hgb 13.6 Hct 39.8 MCV 91.7 MCH 31.3 MCHC 34.2 RDW 13.4 Plt Count 341 MPV 9.7 Absolute Nucleated RBC 0.000 Nucleated RBC % (auto) 0.0 Sodium 145 Potassium 3.6 Chloride 110 H Carbon Dioxide 19 L Anion Gap 20 BUN 24 H Creatinine 1.01 Estim Creat Clear Calc 50.2 Estimated GFR 55 POC Glucose 204 H 153 H Random Glucose 157 H Lactic Acid F/U @ 2Hr Calcium 9.0 D Troponin I High Sens 118.1 H* Urine Color Urine Appearance Urine pH Ur Specific [place] Urine Protein Urine Glucose (UA) Urine Ketones Urine Blood Urine Nitrite Ur Leukocyte Esterase Urine RBC Urine WBC Ur Squamous Epith Cells Urine Bacteria Hyaline Casts Urine Opiates Screen Ur Buprenorphine Scrn Ur Oxycodone Screen Urine Methadone Screen Urine Fentanyl Screen Ur Barbiturates Screen Ur Phencyclidine Scrn Ur Amphetamines Screen U Benzodiazepines Scrn Urine Cocaine Screen U Marijuana (THC) Screen Influenza Type A (PCR) Influenza Type B (PCR) RSV RNA Qual (PCR) SARS-CoV-2 RNA (RT-PCR) 02/21/25 11:28 WBC RBC Hgb Hct MCV MCH MCHC RDW Plt Count MPV Absolute Nucleated RBC Nucleated RBC % (auto) Sodium Potassium Chloride Carbon Dioxide Anion Gap BUN Creatinine Estim Creat Clear Calc Estimated GFR POC Glucose 144 H Random Glucose Lactic Acid F/U @ 2Hr Calcium Troponin I High Sens Urine Color Urine Appearance Urine pH Ur Specific [place] Urine Protein Urine Glucose (UA) Urine Ketones Urine Blood Urine Nitrite Ur Leukocyte Esterase Urine RBC Urine WBC Ur Squamous Epith Cells Urine Bacteria Hyaline Casts Urine Opiates Screen Ur Buprenorphine Scrn Ur Oxycodone Screen Urine Methadone Screen Urine Fentanyl Screen Ur Barbiturates Screen Ur Phencyclidine Scrn Ur Amphetamines Screen U Benzodiazepines Scrn Urine Cocaine Screen U Marijuana (THC) Screen Influenza Type A (PCR) Influenza Type B (PCR) RSV RNA Qual (PCR) SARS-CoV-2 RNA (RT-PCR) ECG Interpretation: EKG with sinus tachycardia with slight ST depression somewhat diffusely. More prominent in the 2nd EKG. However, even the older EKG from [address]-depression. Assessment and Plan (1) Hypertensive emergency: Status: Acute (2) Elevated troponin: Status: Acute Plan Maximum systolic pressure in the 200s. Maximum diastolic as much as 132 mm Hg. Currently completely normal at 126/69 mm Hg. Suspect everything is pain related as she is much better now. Troponin peak was at 161 but already coming down. Again likely all related to hypertension induced myocardial stress. Do not really believes she had true NSTEMI. She had received IV labetalol but currently with normal blood pressure we can monitor. We can get an echocardiogram for cardiac function assessment. Consider outpatient stress testing. Procedures Date of Service Date of Service: 02/21/25
[2025-02-21 15:46] VITALS: BP 104/59; PULSE 103; RESP 18; TEMP 36.6; O2SAT 94
[2025-02-21 16:11] LABS: Glucose, Whole Blood 190 mg/dL (60-115)
[2025-02-21] MEDS: Enoxaparin Sodium 40 MG/0.4 ML SYRINGE SUBCUT (16:34)
[2025-02-21 19:38] VITALS: BP 105/73; PULSE 100; RESP 16; TEMP 36.3; O2SAT 93
[2025-02-21 20:17] LABS: Glucose, Whole Blood 146 mg/dL (60-115)
[2025-02-21] MEDS: Cyclobenzaprine HCl 10 MG TABLET PO (20:53)
[2025-02-21] MEDS: Omeprazole 20 MG CAPSULE.DR PO (20:53)
[2025-02-21 23:57] VITALS: BP 101/71; PULSE 100; RESP 16; TEMP 36.4; O2SAT 95
[2025-02-22 00:01] LABS: Anion Gap 15 (12-20); Blood Urea Nitrogen 32 mg/dL (9-16); Calcium 9.2 mg/dL (8.4-10.2); Carbon Dioxide 23 mmol/L (22-29); Chloride 107 mmol/L (96-108); Creatinine Clr Calc Pharmacy 41.9; Estimated Glomerular Filt Rate 45; Glucose Random 157 mg/dL (60-115); Magnesium 2.3 mg/dL (1.6-2.6); Potassium 3.6 mmol/L (3.3-5.1); Sodium 141 mmol/L (135-145)
[2025-02-22 03:54] VITALS: BP 140/66; PULSE 96; RESP 16; TEMP 36.3; O2SAT 95
--- NOTE | 2025-02-22 07:00 | CA_ITS ---
Transthoracic Echocardiogram Patient (Last, First, Middle): Dana Guzman, Gender: Female Date of : 1960 Age: 64 Procedure Date: 02/22/2025 Procedure Type: Transthoracic Echocardiogram Location: [facility] [place] [facility] [place] Height: 154.94 cm Weight: 71.22 kg BSA: 1.70 m2 Heart Rate: 73 bpm BP: 140 / 66 mmHg Automotive Paint Technician: Referring MD: Umer Kramer MD Saxophone Teacher: Jose Potts MD Symptoms: chest pain, trops Study Quality: Adequate ECG Rhythm: Sinus Conclusions: - 1. Normal LV ejection fraction of 65-70% with mild LVH with impaired relaxation filling pattern 2. Normal cardiac valvular Dopplers 3. No gross bradycardia effusion Findings Left Ventricle Normal left ventricular size and systolic function. There is mildly increased left ventricular wall thickness. The visually estimated ejection fraction is between 65-70%. Spectral Doppler is indicative of an impaired relaxation filling pattern. E/E prime ratio is between 8 and 15 consistent with indeterminate filling pressures. Right Ventricle Normal right ventricular cavity size and systolic function. Atria Both atria are normal in size. There is no evidence of interatrial shunt. Aortic Valve Normal aortic valve structure and function. There is no aortic valve stenosis. There is no aortic valve regurgitation. Mitral Valve Normal mitral valve structure and function. There is no mitral valve regurgitation. There is no mitral valve stenosis. Pulmonic Valve The pulmonic valve is likely normal. Tricuspid Valve Normal tricuspid valve structure. There is trace tricuspid valve regurgitation. The right ventricular systolic pressure is normal. Normal right atrial pressure. Great Vessels The aorta was not well visualized. The pulmonary artery was not well visualized. There is no dilatation of the ascending aorta measuring 2.90 cm. Venous The inferior vena cava is normal in size and collapses greater than 50% with inspiration. Pericardium/Pleural The pericardium was not well visualized. Prior Study Comparison No prior study available for comparison. Measurements 2D Linear Measurements IVSd: 1.24 0.6-0.9/0.6-1.0 cm LVIDd: 3.84 3.9-5.3/4.2-5.9 cm LVIDd Index: 2.26 2.4-3.2/2.2-3.1 cm/m2 LVIDs: 2.36 2.0-3.6 cm LVPWd: 1.22 0.7-1.1 cm LA Diam: 3.40 2.7-3.8/3.0-4.0 cm LAIDs Index: 2.00 1.5-2.3 cm/m2 LV Mass: 201.16 67-162/88-224 g LV Mass Index: 118.33 43-95/49-115 g/m2 LVOT Diam: 1.90 3.0+(-)1.3 cm 2D Systolic Function EF 4C: 72.10 >55% EF 2C: 58.60 >55% EF BiP: 66.70 >55% Mitral Valve MV Pk E: 0.55 MV PK A: 0.83 MV Decel Time: 207.00 E/A: 0.70 E'Lateral: 9.36 E'Medial: 6.20 E/E' Med: 8.80 E/E' Lat: 5.90 PHT: 61.00 MVA PHT: 3.61 Decel Clayton: 2.65 Aortic Valve AoV Pk Dylan: 1.55 AoV Mn Dylan: 0.95 AoV VTI: 0.30 AoV Pk Grad: 10.00 Aov Mn Grad: 5.00 ADORE Cont.VTI: 2.31 LVOT LVOT Pk Dylan: 1.20 LVOT Mn Dylan: 0.75 LVOT VTI: 0.24 LVOT Pk Grad: 6.00 LVOT Mn Grad: 3.00 LVOT Diam: 1.90 LVOT Area: 2.84 Diastolic Function MV Pk E: 0.55 MV Pk A: 0.83 E/A: 0.70 E'Medial: 6.20 E/E' Med: 8.80 E' Laterial: 9.36 E/E' Lat: 5.90 Right Ventricle TAPSE (mm): 19.90 TVS' Dylan: 9.36 Tricuspid Valve TR Pk Dylan: 1.54 TR Pk Grad: 9.00 RA Press: 3.00 RVSP: 12.00 Great Vessels Aorta Sinus of Valsalva: 2.90 2.0-3.5 cm Ao Asc: 2.90 2.1-3.4 cm Pulmonary Valve PV Pk Dylan: 0.96 Peak PV Grad: 4.00 Updated in Other Vendor System with Status of Final Jose Potts MD electronically signed on 02/22/2025 3:20:18 PM with status of Final
[2025-02-22 07:21] LABS: Glucose, Whole Blood 136 mg/dL (60-115)
[2025-02-22 07:56] VITALS: BP 117/65; PULSE 75; RESP 18; TEMP 36.2; O2SAT 97
[2025-02-22 07:57] LABS: Hematocrit 36.8 % (37.0-47.0); Hemoglobin 12.2 g/dl (12.0-16.0); Mean Corpuscular HGB Conc 33.2 g/dl (31.0-35.0); Mean Corpuscular Hemoglobin 31.3 pg (27.0-33.0); Mean Corpuscular Volume 94.4 fL (80.0-98.0); Mean Platelet Volume 9.4 fL (9.4-12.3); Platelet Count 277 X10*3/uL (160-400); Red Cell Distribution Width 13.3 % (11.0-16.0); White Blood Count 10.9 X10*3/uL (4.8-10.8)
[2025-02-22] MEDS: Meclizine HCl 12.5 MG TABLET PO (08:07)
[2025-02-22] MEDS: Aspirin Enteric Coated 81 MG TABLET.DR PO (08:07)
[2025-02-22] MEDS: Loratadine 10 MG TABLET PO (08:07)
[2025-02-22] MEDS: Gabapentin 100 MG CAPSULE PO (08:07)
[2025-02-22] MEDS: Cholecalciferol (Vitamin D3) 25 MCG TABLET PO (08:07)
[2025-02-22] MEDS: lisinopriL 20 MG TABLET PO (08:07)
[2025-02-22] MEDS: PARoxetine HCL 40 MG TABLET PO (08:07)
[2025-02-22] MEDS: 0.9 % Sodium Chloride Flush 3 ML SYRINGE IVFLUSH (08:08)
[2025-02-22 08:09] LABS: Anion Gap 14 (12-20); Blood Urea Nitrogen 36 mg/dL (9-16); Calcium 9.2 mg/dL (8.4-10.2); Carbon Dioxide 21 mmol/L (22-29); Chloride 109 mmol/L (96-108); Creatinine Clr Calc Pharmacy 55.8; Estimated Glomerular Filt Rate > 60; Glucose Random 136 mg/dL (60-115); Potassium 3.5 mmol/L (3.3-5.1); Sodium 140 mmol/L (135-145)
--- NOTE | 2025-02-22 09:12 | HO.PM.IMPN ---
Subjective Subjective Date of Service: 02/22/25 Interval History: feeling better Physical Exam Vital Signs: Vital Signs: Last Vital Signs Temp 97.1 F 02/22/25 07:56 Pulse 75 02/22/25 07:56 Resp 18 02/22/25 07:56 BP 117/65 02/22/25 07:56 Pulse Ox 97 02/22/25 07:56 O2 Del Method Room Air 02/22/25 03:54 BMI result Body Mass Index 29.8 Const: General: comfortable and no acute distress Orientation/consciousness: patient oriented x3 HEENT: Other: Unremarkable Head: Yes normal to inspection Neck: Neck: Yes normal visual inspection Chest: Chest palpation & inspection: normal inspection of the chest Resp: Auscultation: clear to auscultation bilaterally Cardio: Palpation: normal PMI Heart sounds: S1 normal heart sound present, S2 normal heart sound present, no gallops, no murmurs and no rubs GI: Palpation (GI): Soft to palpation Back/Spine/Pelvis: Other: unremarkable Skin: General skin exam: no rashes or lesions noted Neuro: General: patient oriented x3 Extrem: General: Yes normal to inspection Psych: Mental Status: mental status grossly normal Objective Data Active Medications Acetaminophen (Acetaminophen 325 Mg Tablet) 650 mg PO Q6H PRN PRN Reason: Pain, Mild 1-3,fever,headache Aspirin (Aspirin Enteric Coated 81 Mg Tablet.Dr) 81 mg PO DAILY [facility] Last Admin: 02/22/25 08:07 Dose: 81 mg Documented By: NORM Calcium Carbonate (Calcium Carbonate 750 Mg Tab.Chew) 750 mg PO Q4H PRN PRN Reason: Heartburn Ceftriaxone Sodium (Ceftriaxone Sodium 1 Gm Vial) 1 gm IVPUSH Q24H [facility] Last Admin: 02/21/25 10:31 Dose: 1 gm Documented By: NORM Cyclobenzaprine HCl (Cyclobenzaprine Hcl 10 Mg Tablet) 10 mg PO BEDTIME PRN PRN Reason: muscle spasm Last Admin: 02/21/25 20:53 Dose: 10 mg Documented By: ROXANNE Dextrose (Dextrose 50 % 25 Gm/50 Ml Syringe) 25 gm IVPUSH Q15M PRN; Protocol PRN Reason: per Hypoglycemia Standing Ord. Enoxaparin Sodium (Enoxaparin Sodium 40 Mg/0.4 Ml Syringe) 40 mg SUBCUT Q24H [facility] Last Admin: 02/21/25 16:34 Dose: 40 mg Documented By: NORM Gabapentin (Gabapentin 100 Mg Capsule) 100 mg PO BID PRN PRN Reason: Neuropathy/sciatica Last Admin: 02/22/25 08:07 Dose: 100 mg Documented By: NORM Glucose (Glucose Gel 15 Gm Gel..Gram.) 15 gm PO Q15M PRN; Protocol PRN Reason: per Hypoglycemia Standing Ord. Insulin Human Lispro (Insulin Lispro 100 Unit/Ml 3 Ml Vial) 0 unit SUBCUT QIDACHS [facility]; Protocol Last Admin: 02/22/25 07:27 Dose: Not Given Documented By: NORM Non-Admin Reason: No Insulin Coverage Labetalol HCl (Labetalol Hcl 100 Mg/20 Ml Vial) 5 mg IVPUSH Q6H PRN PRN Reason: CBP >180 Last Admin: 02/20/25 16:35 Dose: 5 mg Documented By: GERDA Lisinopril (Lisinopril 20 Mg Tablet) 20 mg PO DAILY [facility]; Protocol Last Admin: 02/22/25 08:07 Dose: 20 mg Documented By: NORM Loratadine (Loratadine 10 Mg Tablet) 10 mg PO DAILY [facility] Last Admin: 02/22/25 08:07 Dose: 10 mg Documented By: NORM Magnesium Hydroxide (Milk Of Magnesia 30 Ml Oral.Susp) 30 ml PO DAILY PRN PRN Reason: Constipation Meclizine HCl (Meclizine Hcl 12.5 Mg Tablet) 12.5 mg PO DAILY [facility] Last Admin: 02/22/25 08:07 Dose: 12.5 mg Documented By: NORM Melatonin (Melatonin 3 Mg Tablet) 6 mg PO BEDTIME PRN PRN Reason: Insomnia Morphine Sulfate (Morphine Sulfate 4 Mg/Ml Cartridge) 4 mg IVPUSH Q4H PRN; Protocol PRN Reason: Pain, Severe (Pain Scale 7-10) Last Admin: 02/21/25 20:52 Dose: 4 mg Documented By: NTA-RANDEEZECamron Omeprazole (Omeprazole 20 Mg Capsule.) 20 mg PO BEDTIME [facility] Last Admin: 02/21/25 20:53 Dose: 20 mg Documented By: STEPHANIEZECamron Ondansetron HCl (Ondansetron Hcl 4 Mg/2 Ml Vial) 4 mg IVPUSH Q8H PRN PRN Reason: Nausea and Vomiting Paroxetine HCl (Paroxetine Hcl 40 Mg Tablet) 40 mg PO DAILY [facility] Last Admin: 02/22/25 08:07 Dose: 40 mg Documented By: NORM Sodium Chloride (0.9 % Sodium Chloride Flush 3 Ml Syringe) 3 ml IVFLUSH QSHIFT [facility] Last Admin: 02/22/25 08:08 Dose: 3 ml Documented By: NORM Vitamin D (Cholecalciferol (Vitamin D3) 25 Mcg Tablet) 25 mcg PO DAILY [facility] Last Admin: 02/22/25 08:07 Dose: 25 mcg Documented By: NORM Labs 02/22/25 07:45 02/22/25 07:45 Labs: Laboratory Results - last 24 hr 02/21/25 02/21/25 02/21/25 11:28 15:49 20:04 MCV MCH MCHC RDW Plt Count MPV Absolute Nucleated RBC Nucleated RBC % (auto) Anion Gap Estim Creat Clear Calc Estimated GFR POC Glucose 144 H 190 H 146 H Random Glucose Calcium Magnesium 02/21/25 02/22/25 02/22/25 23:37 07:12 07:45 MCV 94.4 MCH 31.3 MCHC 33.2 RDW 13.3 Plt Count 277 MPV 9.4 Absolute Nucleated RBC 0.000 Nucleated RBC % (auto) 0.0 Anion Gap 15 14 Estim Creat Clear Calc 41.9 55.8 Estimated GFR 45 > 60 POC Glucose 136 H Random Glucose 157 H 136 H Calcium 9.2 9.2 Magnesium 2.3 Microbiology Microbiology Results: Microbiology 02/20/25 10:21 Blood Culture - Preliminary Blood - Venous No growth after 24 hours. 02/20/25 10:21 Blood Culture - Preliminary Blood - Venous No growth after 24 hours. Assessment and Plan (1) Nausea & vomiting: Status: Acute Plan 64F PMH hypertension, sciatica, GERD, diabetes, mood presented with dizziness, nausea, right flank pain Sirs Possible sepsis due to UTI due to a passed stone versus aspiration, versus dehydration and distress from nausea Continue ceftriaxone, cutlures negative Improved with IV hydration NSTEMI likely demand cardio appreciated, check echo hypertensive urgency improved, conitnue lisinpoirl dm insulin mood disorder paxil dvt rpophylaxis -lovenox full code reason for continued hospitalization:echo Quality Stroke Does the patient have a stroke diagnosis?: No VTE Prior VTE?: No VTE Risk Level:: Medical - moderate - high VTE Device Contraindication: Treatment Not Indicated VTE Drug Contraindication: N/A - Med Ordered
--- NOTE | 2025-02-22 09:15 | PM.DS ---
DS: Providers Provider Date of Service: 02/22/25 Date of admission: 02/20/25 13:30 Date of discharge: 02/22/25 Primary care physician: Ema Perry MD Consults: 02/20/25 18:46 Consult to Cardiology Routine Consulting Provider: [facility] Reason for consultation: Elevated trops, ST depressions in lateral leads 02/21/25 22:35 Consult to Cardiology Routine Consulting Provider: [facility] Reason for consultation: NSVT DS: Diagnosis Discharge Diagnosis (1) Nausea & vomiting: Status: Acute DS: Summary Hospital Course Hospital Course: from initial hpi: 77-year-old female with a PMH significant for?paroxysmal AFib on Xarelto, CAD, panniculitis due to lymphedema, COPD on 2 L home O2, and RICHELLE intolerant of CPAP who presents to the ED with?with increased SOB and ABRAHAM for the past few days. Pt previously admitted to the hospital from 12/28-01/03 for left pleural effusion that was thought to be parapneumonic. Thoracentesis was performed by IR with the removal of 900 mL of fluid on 12/29/2024. Cultures, fluid chemistries, and cytology essentially unremarkable with no malignancy identified. Echocardiogram showed hyperdynamic LV EF greater than 70% and mild calcific aortic and mitral valves. Pt was discharged to [facility] where her stay was complicated by pneumonia and then COVID. pt was discharged home from SNF 1 week ago and reports initially felt ?great?. Pt reports was able to walk, climb stairs, and ?do what I was supposed to do?. However, pt began experiencing SOB, ABRAHAM, and increased nonproductive cough the past few days. Has felt weak and fatigued, and been unable to ambulate. Has felt cold, but no fever. Denies nausea, vomiting, abdominal pain. Denies swelling in lower extremities. Has chronic intermittent, occasional sharp stabbing chest pain in the past that ongoing for some months. In the ED pt was was tachypneic at 21, vitals otherwise stable, satting at 98% on baseline 2 L NC. Labs were overall grossly unremarkable and around baseline for pt. No leukocytosis. Stable H&H. No significant electrolyte abnormalities. Renal function WNL. Hepatic function WNL initial troponin 3.2. VBG similar to previous without CO2 retention. Tested negative for flu, COVID, RSV. CXR showed mild cardiomegaly with [id number] left pleural effusion and mild to moderate underlying left basilar atelectasis vs infiltrates. CT of chest showed enlarged left pleural effusion with passive atelectasis in left upper and left lower lobe which is collapsed. EKG demonstrated normal sinus rhythm without evidence of significant ST elevations or depressions . Pt was treated in the ED with DuoNebs, IVF, ondansetron, tramadol, ceftriaxone, and azithromycin. Pt is admitted to the hospital under observation for treatment and further evaluation of recurrent left pleural effusion requiring thoracentesis. hospital course: Patient was admitted for sirs. Differential diagnosis included sepsis due to urinary tract infection due to passed stone versus aspiration pneumonitis versus dehydration and distress from nausea and sciatica. Was treated with ceftriaxone and hydration, cultures were negative. sirs and symptoms resolved. Course complicated by non ST-elevation LA, troponin peaked at 161, likely this is demand ischemia not ACS. Was seen by Cardiology recommended outpatient stress test. Echocardiogram was done and should be follow up outpatient. For diabetes was continued with insulin. Course was also complicated by hypertensive urgency. This resolved with pain control and home lisinopril. Due to severe and episodic nature serum catecholamines were drawn and are pending, they should be followed up as outpatient. For mood disorder was continued on Paxil. Patient is feeling better will be discharged home. Time Attestation Discharge Coordination Time (in mins): 34 Quality: Safe Use of Opioids Does Pt have an Active Cancer Diagnosis on the Problem List?: No Quality: Stroke Does the patient have a stroke diagnosis?: No Physical Exam Vital Signs: Vital Signs: Last Vital Signs Temp 97.1 F 02/22/25 07:56 Pulse 75 02/22/25 07:56 Resp 18 02/22/25 07:56 BP 117/65 02/22/25 07:56 Pulse Ox 97 02/22/25 07:56 O2 Del Method Room Air 02/22/25 03:54 BMI result Body Mass Index 29.8 General: AO X 3, no acute distress Resp: CTA bilateral, no accessory muscles used CVS: S1,S2,RRR GI: soft, non tender, non distended Neuro: motor grossly intact, alert Psych: appropriate affect, appropriate insight DS: Data Data Completed and Pending Labs on day of discharge: Laboratory Results - last 24 hr 02/21/25 02/21/25 02/21/25 11:28 15:49 20:04 WBC RBC Hgb Hct MCV MCH MCHC RDW Plt Count MPV Absolute Nucleated RBC Nucleated RBC % (auto) Sodium Potassium Chloride Carbon Dioxide Anion Gap BUN Creatinine Estim Creat Clear Calc Estimated GFR POC Glucose 144 H 190 H 146 H Random Glucose Calcium Magnesium 02/21/25 02/22/25 02/22/25 23:37 07:12 07:45 WBC 10.9 H RBC 3.90 L Hgb 12.2 Hct 36.8 L MCV 94.4 MCH 31.3 MCHC 33.2 RDW 13.3 Plt Count 277 MPV 9.4 Absolute Nucleated RBC 0.000 Nucleated RBC % (auto) 0.0 Sodium 141 140 Potassium 3.6 3.5 Chloride 107 109 H Carbon Dioxide 23 21 L Anion Gap 15 14 BUN 32 H 36 H Creatinine 1.21 0.91 Estim Creat Clear Calc 41.9 55.8 Estimated GFR 45 > 60 POC Glucose 136 H Random Glucose 157 H 136 H Calcium 9.2 9.2 Magnesium 2.3 Preliminary micro results at discharge 02/20/25 10:21 Blood Culture - Preliminary Blood - Venous No growth after 24 hours. 02/20/25 10:21 Blood Culture - Preliminary Blood - Venous No growth after 24 hours. Discharge Plan Discharge Anticipated Discharge Date/Time: 02/22/25 09:13 Patient Disposition: Home, Self-Care Discharge Diagnosis: nstemi type 2, uti, htn Referrals: Ema Perry MD [Primary Care Provider] - 1 Week Armando Barth MD [Physician] - 1 Week Discharge Medications: New cefuroxime axetil 500 mg tablet 500 mg PO BID Qty: 6 0RF Continued levocetirizine 5 mg tablet 5 mg PO DAILY Qty: 90 0RF paroxetine HCl 40 mg tablet 40 mg PO QAM 90 Days Qty: 90 0RF cyclobenzaprine 10 mg tablet 10 mg PO BEDTIME PRN (Reason: muscle spasm) 90 Days Qty: 90 0RF cholecalciferol (vitamin D3) 25 mcg (1,000 unit) capsule 25 mcg PO DAILY 90 Days Qty: 90 3RF acetaminophen 650 mg tablet extended release 650 mg PO Q12H PRN (Reason: pain) 90 Days Qty: 180 3RF lisinopril 20 mg tablet 20 mg PO DAILY 90 Days Qty: 90 0RF aspirin 81 mg tablet,delayed release (DR/EC) 81 mg PO DAILY Qty: 90 0RF alendronate 70 mg tablet 70 mg PO TU meclizine 12.5 mg tablet 12.5 mg PO DAILY omeprazole 20 mg capsule,delayed release(DR/EC) 20 mg PO BEDTIME ibuprofen 600 mg tablet 600 mg PO Q6H PRN (Reason: pain) 30 Days Qty: 90 1RF Discharge Orders: Discharge Order (Routine); Ordered 02/22/25 Ordered By: Umer Kramer Diet: Advance to usual diet Activity on Discharge: As tolerated Stand Alone Forms: Patient Portal Discharge page Print Language: Armenian Care Plan Goals: recovery Health Concerns: htn, type 2 nstemi uti Plan of Treatment: 3 more days ceftin follow up with cardiology Assessment: see above
--- NOTE | 2025-02-22 11:03 | PM.PNCARD ---
Subjective Subjective Date of Service: 02/22/25 Principal diagnosis: Elevated troponin Interval history: Patient has no chest pain. Blood pressure is currently stable. She had significantly hypertension due to pain with EKG changes suggestive of ST T wave abnormality which could represent underlying ischemia. She subsequently elevated troponins. Her blood pressure not better controlled. She says she continues to have symptoms related to sciatica and lumbar spine pain which is her most bothering symptoms at current point time. Review of Systems Review of Systems Yes all other systems are reviewed and are negative Physical Exam Vital Signs: Last Vital Signs Temp 97.1 F 02/22/25 07:56 Pulse 75 02/22/25 07:56 Resp 18 02/22/25 07:56 BP 117/65 02/22/25 07:56 Pulse Ox 97 02/22/25 07:56 O2 Del Method Room Air 02/22/25 03:54 BMI result Body Mass Index 29.8 Const General: comfortable and no acute distress Orientation/consciousness: patient oriented x3 HEENT Other: Unremarkable Head: Yes normal to inspection Neck Neck: Yes normal visual inspection Chest Chest palpation & inspection: normal inspection of the chest Resp Auscultation: clear to auscultation bilaterally Cardio Palpation: normal PMI Heart sounds: S1 normal heart sound present, S2 normal heart sound present, no gallops, no murmurs and no rubs GI Palpation (GI): Soft to palpation Back/Spine/Pelvis Other: unremarkable Skin General skin exam: no rashes or lesions noted Neuro General: patient oriented x3 Extrem General: Yes normal to inspection Psych Mental Status: mental status grossly normal Objective Labs and Meds 02/22/25 07:45 02/22/25 07:45 Lab results: Laboratory Results - last 24 hr 02/21/25 02/21/25 02/21/25 11:28 15:49 20:04 WBC RBC Hgb Hct MCV MCH MCHC RDW Plt Count MPV Absolute Nucleated RBC Nucleated RBC % (auto) Sodium Potassium Chloride Carbon Dioxide Anion Gap BUN Creatinine Estim Creat Clear Calc Estimated GFR POC Glucose 144 H 190 H 146 H Random Glucose Calcium Magnesium 02/21/25 02/22/25 02/22/25 23:37 07:12 07:45 WBC 10.9 H RBC 3.90 L Hgb 12.2 Hct 36.8 L MCV 94.4 MCH 31.3 MCHC 33.2 RDW 13.3 Plt Count 277 MPV 9.4 Absolute Nucleated RBC 0.000 Nucleated RBC % (auto) 0.0 Sodium 141 140 Potassium 3.6 3.5 Chloride 107 109 H Carbon Dioxide 23 21 L Anion Gap 15 14 BUN 32 H 36 H Creatinine 1.21 0.91 Estim Creat Clear Calc 41.9 55.8 Estimated GFR 45 > 60 POC Glucose 136 H Random Glucose 157 H 136 H Calcium 9.2 9.2 Magnesium 2.3 Progress Note: A&P Assessment and plan (1) Elevated troponin: Status: Acute Assessment and Plan: Elevated troponin setting of hypertensive urgency with EKG changes suggestive of myocardial strain. This is likely related to hypertension and subendocardial ischemia. Although underlying coronary artery disease can not be ruled out. I would suggest low-dose aspirin as well as statins and better control blood pressure. Better control of pain which is a cause of her acute hypertension also needs to be addressed. She will eventually require ischemic workup. Echocardiogram is pending will review it. If there any major regional wall motion abnormality plan will change. Otherwise will sign of the case. Thank you for allowing me to partake in her care Time Spent With Patient Time: Total time managing care of this patient today ____ minutes. Progress Note: Quality Stroke Does the patient have a stroke diagnosis?: No Procedures Date of Service Date of Service: 02/22/25
[2025-02-22 11:24] VITALS: BP 120/56; PULSE 79; RESP 18; TEMP 36.6
[2025-02-22 11:36] LABS: Glucose, Whole Blood 133 mg/dL (60-115)
[2025-02-22] MEDS: cefTRIAXone sodium 1 GM VIAL IVPUSH (12:02)
--- NOTE | 2025-02-22 14:40 | MHC.CM.PN ---
PT TO DC HOME TODAY WITH [facility]
[2025-02-25 17:24] LABS: Metanephrine, Free <25 pg/mL (<=57); Normetanephrines, Free 116 pg/mL (<=148); Total Metanephrine, Free 116 pg/mL (<=205)
== END 2025-02-22 15:16 | disposition home or self-care (01) | DRG 871 ==
LOC: HO.ED 12:58 → HO.EDOVER 14:32 → HO.IMC 16:18
PROVIDERS: Hospitalist; Admitting Provider Student in an Organized Health Care Education/Training Program; Emergency Provider Emergency Medicine; PCP Internal Medicine; Visit Provider Internal Medicine
DX: A41.9 Sepsis, unspecified organism (principal); I21.A1 Myocardial infarction type 2; F33.9 Major depressive disorder, recurrent, unspecified; N39.0 Urinary tract infection, site not specified; F17.210 Nicotine dependence, cigarettes, uncomplicated; I10 Essential (primary) hypertension; I16.0 Hypertensive urgency; E11.9 Type 2 diabetes mellitus without complications; I48.0 Paroxysmal atrial fibrillation; M54.32 Sciatica, left side; K21.9 Gastro-esophageal reflux disease without esophagitis; Z71.6 Tobacco abuse counseling; Z20.822 Contact with and (suspected) exposure to COVID-19; Z79.01 Long term (current) use of anticoagulants; Z79.899 Other long term (current) drug therapy
CPT/HCPCS: 0241U; 36415; 71045; 74177; 80048; 80053; 80307; 81001; 82947; 83605; 83690; 83735; 83835; 84484; 85025; 85027; 87040; 93005; 93306; 99285; J0696; J1650; J1920; J2270; J2405; J3360; Q9957; Q9967

== ENCOUNTER → 2025-02-20 09:23 | Outpatient (BNV) | payer MEDICARE, MEDICAID, SELFPAY | PROVIDERS: Emergency Provider Emergency Medicine; PCP Internal Medicine; Visit Provider Radiology Vascular & Interventional Radiology | DX: K57.30 Diverticulosis of large intestine without perforation or abscess without bleeding (principal); R53.1 Weakness | CPT/HCPCS: 74177 ==

== ENCOUNTER 2025-02-20 13:30 | Outpatient (BNV) | payer MEDICARE, MEDICAID, SELFPAY | END 2025-02-22 07:00 | PROVIDERS: Admitting Provider Student in an Organized Health Care Education/Training Program; Emergency Provider Emergency Medicine; PCP Internal Medicine; Visit Provider Internal Medicine Cardiovascular Disease | DX: I36.1 Nonrheumatic tricuspid (valve) insufficiency (principal) | CPT/HCPCS: 93306 ==

== ENCOUNTER → 2025-02-20 13:30 | Outpatient (BNV) | payer MEDICARE, MEDICAID, SELFPAY | PROVIDERS: Admitting Provider Student in an Organized Health Care Education/Training Program; Emergency Provider Emergency Medicine; PCP Internal Medicine; Visit Provider Student in an Organized Health Care Education/Training Program | DX: R11.2 Nausea with vomiting, unspecified (principal) | CPT/HCPCS: 99223; 99233; 99239; 99499 ==

== ENCOUNTER → 2025-02-20 13:30 | Outpatient (BNV) | payer MEDICARE, MEDICAID, SELFPAY | PROVIDERS: Admitting Provider Student in an Organized Health Care Education/Training Program; Emergency Provider Emergency Medicine; PCP Internal Medicine; Visit Provider Internal Medicine | DX: I16.1 Hypertensive emergency (principal); R79.89 Other specified abnormal findings of blood chemistry; R00.0 Tachycardia, unspecified; R94.31 Abnormal electrocardiogram [ECG] [EKG] | CPT/HCPCS: 93010; 99223 ==

== ENCOUNTER 2025-03-16 09:52 | Outpatient (AMB) | payer MEDICARE, MEDICAID, SELFPAY ==
--- NOTE | 2025-03-16 09:57 | MHC.PC.OV ---
Vital Signs 03/16/25 10:04 Height 5 ft Weight 154 lb 6 oz BMI 30.1 BP 160/90 H Blood Pressure Location Rt brachial Position Sitting Pulse 70 Pulse Source Pulse Oximeter Temp 98.3 F Temp Source Oral Pulse Oximetry (%) 98 Oxygen Delivery Method Room Air Intake Visit Reasons: HDF/hmc/sciatica pain Is last menstrual period known: No Post menopausal: Yes Patient : No Allergies oxycodone (OXYCODONE) Allergy (Intermediate, Verified 03/16/25 10:02) N/V, GI PAIN Medication List - Last Reconciled 03/16/25 by Ema Perry MD acetaminophen ER 650 mg PO Q12H PRN 90 days alendronate 70 mg PO TU aspirin 81 mg PO DAILY cholecalciferol (vitamin D3) 25 mcg PO DAILY 90 days cyclobenzaprine 10 mg PO BEDTIME PRN 90 days gabapentin 100 mg PO BID PRN ibuprofen 600 mg PO Q6H PRN 30 days levocetirizine 5 mg PO DAILY lisinopril 20 mg PO DAILY 90 days meclizine 12.5 mg PO DAILY omeprazole 20 mg PO BEDTIME paroxetine HCl 40 mg PO QAM 90 days Tobacco use date assessed: 03/16/25 Fall risk assessment: No Falls in past year Last assessed Fall Risk: 03/16/25 Dental Screening Dental Screen Date: 03/16/25 Did you have a dental visit in the last 12 months?: No Did you have a dental problem in the last 6 months where you did not have access to dental care?: No Was dental information given to patient?: No HPI HDF/hmc/sciatica pain HPI Details Patient is 64-year-old female with numerous no-show appointments Came in today for hospital discharge follow-up dated 02/20/2025 to 02/22/2025 Patient has a history of coronary artery disease, COPD obstructive sleep apnea intolerant of CPAP. Presented to emergency room with a chief complaint of shortness a breath for the past few days. Patient was previously admitted to hospital December of 2020 left pleural effusion, left pleural effusion that was thought to be better pneumonic. Thoracentesis was performed and 900 mL of fluid was removed on 29 of December discharge to [facility] Cultures were are remarkable, no malignancy was identified. Echocardiogram showed hyperdynamic LV ejection fraction greater than 70%, mild calcific aortic and mitral valve. Presented to emergency room with a chief complaint of, shortness a breath and nonproductive cough. And feeling of weakness and fatigued In emergency room patient was tachypneic at 21 respiration per minute vital signs were stable saturation 98% on 2 L of nasal cannula. Labs were overall grossly unremarkable around baseline for the patient. H&H stable no significant electrolyte abnormalities renal function within normal limit Hepatic function within normal limit, initial troponin 3.2. Venous blood gas similar to previous without CO2 retention. Tested negative for flu COVID RSV, chest x-ray showed 1. Left lower lobe atelectasis. 2. Early/evolving infiltrate versus aspiration are included in the differential. EKG demonstrated normal sinus rhythm without evidence of significant ST elevation or depression. She was treated in emergency room with DuoNebs, IV fluids and antibiotics. She developed a run of SVT with spike in tropes which came down eventually Evaluated by Cardiology who recommended outpatient stress test. She is to continue insulin for diabetes Her hospital course was complicated by hypertensive urgency. Which resolved with pain control and home lisinopril Serum catecholamines were drawn , they came back within normal limit She is to continue Paxil for mood disorder and was eventually discharged home She came in with the daughter for follow-up appointment - Relevant Medical History: The patient has a history of rib fractures, which may be related to the pleural effusion. - Hypertension: The patient has a history of elevated blood pressure, with recent readings of 160/90 mmHg. - Medication: The patient is on 20 mg of lisinopril daily for hypertension management. Daughter will start monitoring blood pressure at home and if needed we will increase the lisinopril to 30 mg - Muscle Spasms: The patient experiences muscle spasms on the left side, managed with gabapentin 100 mg as needed. Script sent for gabapentin 100 mg b.i.d. as needed for three-month - Vertigo: The patient reports vertigo, currently managed with meclizine 12.5 mg, and is requesting to increase the dose to 25 mg as 12.5 is not enough I have placed a referral for to see Cardiology and geological specialist She is requesting us referral to Dermatology for a changing mole on her face close to left eye She already have a referral waiting in the system for pain management They happen calling her but could not get in touch with her for her back pain management I have given a telephone number to daughter so she can call in book the appointment herself Her daughter is her primary tractor trailer mechanic Medications Reviewed Patient Instructions - Follow up with pulmonary and cardiology specialists as scheduled. - Monitor blood pressure at home and record readings. - Take gabapentin as needed for muscle spasms, up to twice daily. - Increase meclizine dose to 25 mg if vertigo persists. - Avoid smoking to improve lung health. Review of Systems General: No fever no chills neurological: No headaches no dizziness ear nose throat: No sore throat no hearing difficulty no ear pain cardiovascular: No syncope, no chest pain, no palpitations gastrointestinal: No nausea vomiting or diarrhea skin: No rash Physical Exam general: No acute distress HEENT: No acute findings neck: Supple respiratory system: Lungs are clear on both sides cardiovascular: S1-S2 RRR, blood pressure was 160/90 gastrointestinal: No pain extremities: No new findings SLIP COVER ESTIMATOR: Alert awake oriented x3 motor sensory intact skin: Normal turgor PFSH Medical History Carpal tunnel syndrome on both sides Fall Elevated troponin level not due myocardial infarction Urinary incontinence in female Environmental allergies Arthrosis Chronic GERD Hypertension, essential Diabetes 1.5, managed as type 2 Depression, major, recurrent Lipid disorder Tobacco abuse Surgical History History of hysteroscopy History of open reduction and internal fixation (ORIF) procedure Hx of cholecystectomy Family History Father History of heart attack HTN (hypertension) CVD (cardiovascular disease) Diabetes mellitus Mother Alzheimer's disease Sister Breast cancer Sister Lung cancer Uterine cancer Sister Colon cancer Maternal Grandmother Colon cancer Social History Household Members: Children Housing: Apartment Do you presently have visiting nurse or other home services: Yes Alcohol intake: current Alcohol intake frequency: former alcohol drinker Comment: fell saturday, legs gave out Patient Tobacco Use Status: Current someday Tobacco user Tobacco use type: Cigarette Cigarette Packs Per Day: 5 Cigarettes Per Day: 5 Years Smoked: 45 e-Cigarette/Vaping Use: Never Used Substance Use Type: Marijuana service: No Current occupational status: retired Current occupation: [employer] Cognitive needs: No Hearing needs: No Vision needs: No Female Reproductive History Menstrual Age of Menarche: 11 Questionnaire PHQ-9 Over the last 2 weeks, how often have you been bothered by any of the following problems? 1. Little interest or pleasure in doing things: several days 2. Feeling down, depressed, or hopeless: several days 3. Trouble falling or staying asleep, or sleeping too much: more than half the days 4. Feeling tired or having little energy: more than half the days 5. Poor appetite or overeating: several days 6. Feeling bad about yourself - or that you are a failure or have let yourself or your family down: more than half the days 7. Trouble concentrating on things, such as reading the newspaper or watching television: several days 8. Moving or speaking so slowly that other people could have noticed. Or the opposite - being so fidgety or restless that you have been moving around a lot more than usual: not at all 9. Thoughts that you would be better off or of hurting yourself in some way: several days Total score: 11 Depression Screening Interpretation: Positive Depression Screening Follow-up: Existing condition and In treatment Depression Screening Done: Yes 49425 - PHQ-9 Billing: Yes Source: Developed by Drs. Fred Martini, Becka Modi, Arley Luu and colleagues, with an educational ignacio from [employer]. Thrive Questionnaire Date Thrive assessed: 02/21/25 I am a: Parent/Caregiver What is your living situation today?: I have a place to live, but I am worried about losing it in the future Within the past 12 months, did the food you bought not last and you didn't have the money to get more?: Sometimes True Within the past 12 months, did you worry whether your food would run out before you got money to buy more?: I choose not to answer this question Do you have trouble paying for medicines?: No Do you have trouble getting transportation to medical appointments?: No Do you have trouble paying your heating and electricity bill?: Yes Do you have trouble taking care of your child, family member or friend?: No Do you have trouble with day-to-day activities such as bathing, preparing meals, shopping, managing finances, etc.?: Yes Are you currently unemployed and looking for a job?: No Are you interested in more education?: No Please select the resources that you would like help with: None Currently or been in a relationship where the following occur: No concerns reported THRIVE Score: 3 AUDIT C Alcohol Use Questionnaire (AUDIT-C) 1. How often do you have a drink containing alcohol?: Monthly or less 2. How many drinks containing alcohol do you have on a typical day when you are drinking?: 1 or 2 3. How often do you have six or more drinks on one occasion?: Less than monthly Total Score: 2 Score Reviewed/Action Taken: Yes CHELSEA-7 AMB Questionnaire CHELSEA-7 Date CHELSEA - 7 assessed: 03/16/25 Feeling nervous, anxious, or on edge: 1 = Several days Not being able to stop or control worryin = Several days Worrying too much about different things: 1 = Several days Trouble relaxin = Several days Being so restless that it is hard to sit still: 2 = More than half the days Becoming easily annoyed or irritable: 2 = More than half the days Feeling afraid as if something awful might happen: 1 = Several days Total CHELSEA-7 score (0-4 normal; 5-9 mild; 10-14 moderate; 15-21 severe): 9 Source: Developed by Drs. Fred Martini, Becka Modi, Arley Luu and colleagues, with an educational ignacio from [employer]. CHELSEA-7 Assessment Billing CHELSEA-7 Assessment Tool: CHELSEA-7 Assessment 93306 Physical exam (Primary Care) Vital Signs: Last Vital Signs Temp 98.3 F 03/16/25 10:04 Pulse 70 03/16/25 10:04 BP 160/90 H 03/16/25 10:04 Pulse Ox 98 03/16/25 10:04 Oxygen Delivery Method Room Air 03/16/25 10:04 BMI result Body Mass Index 30.1 Tobacco/Smoking Status: Tobacco use Status Tobacco use date assessed 03/16/25 03/16/25 10:05 Patient Tobacco Use Status Current someday Tobacco 03/16/25 09:58 Tobacco use type Cigarette 03/16/25 09:58 e-Cigarette/Vaping Use Never Used 03/16/25 09:58 PHQ-9: PHQ-9 Score PHQ-9: Total score 11 03/16/25 11:32 Depression Screening Interpretation: Positive Depression Screening Follow-up: Existing condition and In treatment Thrive Assessment: Date of Thrive Assessment Date Thrive assessed 02/21/25 03/16/25 09:58 Currently or been in a relationship where the following occur: No concerns reported Coding Level of Care Code Est Pt Level 5 (90531) Complex EM visit Add On G2211 Diagnoses Hospital discharge follow-up Z09 Recurrent pleural effusion J90 Chest pain, unspecified type R07.9 Chest pain type: unspecified Lipid disorder E78.9 Hypertension, essential I10 Change in facial mole D22.30 Diabetes 1.5, managed as type 2 E13.9 Left lumbar radiculitis M54.16 Tobacco abuse Z72.0 Additional Codes CHELSEA-7 Assessment Billing - CHELSEA-7 Assessment Tool: CHELSEA-7 Assessment 52304 ([id number]) PHQ-9 - 90830 - PHQ-9 Billing: Yes ([id number]) Time Spent (min) 41 Comment Going over hospital notes/chart/discussing with daughter/coordination of care Assessment & Plan Assessment & Plan (1) Hospital discharge follow-up: Code(s): Z09 - Encounter for follow-up examination after completed treatment for conditions other than malignant neoplasm Category: Medical (2) Recurrent pleural effusion: Code(s): J90 - Pleural effusion, not elsewhere classified Category: Medical (3) Chest pain: Code(s): R07.9 - Chest pain, unspecified Category: Medical Qualifiers: Chest pain type: unspecified Qualified Code(s): R07.9 - Chest pain, unspecified (4) Lipid disorder: Code(s): E78.9 - Disorder of lipoprotein metabolism, unspecified Category: Medical (5) Hypertension, essential: Code(s): I10 - Essential (primary) hypertension Category: Medical (6) Change in facial mole: Code(s): D22.30 - Melanocytic nevi of unspecified part of face Category: Medical (7) Diabetes 1.5, managed as type 2: Code(s): E13.9 - Other specified diabetes mellitus without complications Category: Medical (8) Left lumbar radiculitis: Code(s): M54.16 - Radiculopathy, lumbar region Category: Medical (9) Tobacco abuse: Code(s): Z72.0 - Tobacco use Category: Medical Plan Patient is 64-year-old female with numerous no-show appointments Came in today for hospital discharge follow-up dated 02/20/2025 to 02/22/2025 Patient has a history of coronary artery disease, COPD obstructive sleep apnea intolerant of CPAP. Presented to emergency room with a chief complaint of shortness a breath for the past few days. Patient was previously admitted to hospital December of 2020 left pleural effusion, left pleural effusion that was thought to be better pneumonic. Thoracentesis was performed and 900 mL of fluid was removed on 29 of December discharge to [facility] Cultures were are remarkable, no malignancy was identified. Echocardiogram showed hyperdynamic LV ejection fraction greater than 70%, mild calcific aortic and mitral valve. Presented to emergency room with a chief complaint of, shortness a breath and nonproductive cough. And feeling of weakness and fatigued In emergency room patient was tachypneic at 21 respiration per minute vital signs were stable saturation 98% on 2 L of nasal cannula. Labs were overall grossly unremarkable around baseline for the patient. H&H stable no significant electrolyte abnormalities renal function within normal limit Hepatic function within normal limit, initial troponin 3.2. Venous blood gas similar to previous without CO2 retention. Tested negative for flu COVID RSV, chest x-ray showed 1. Left lower lobe atelectasis. 2. Early/evolving infiltrate versus aspiration are included in the differential. EKG demonstrated normal sinus rhythm without evidence of significant ST elevation or depression. She was treated in emergency room with DuoNebs, IV fluids and antibiotics. She developed a run of SVT with spike in tropes which came down eventually Evaluated by Cardiology who recommended outpatient stress test. She is to continue insulin for diabetes Her hospital course was complicated by hypertensive urgency. Which resolved with pain control and home lisinopril Serum catecholamines were drawn , they came back within normal limit She is to continue Paxil for mood disorder and was eventually discharged home She came in with the daughter for follow-up appointment - Relevant Medical History: The patient has a history of rib fractures, which may be related to the pleural effusion. - Hypertension: The patient has a history of elevated blood pressure, with recent readings of 160/90 mmHg. - Medication: The patient is on 20 mg of lisinopril daily for hypertension management. Daughter will start monitoring blood pressure at home and if needed we will increase the lisinopril to 30 mg - Muscle Spasms: The patient experiences muscle spasms on the left side, managed with gabapentin 100 mg as needed. Script sent for gabapentin 100 mg b.i.d. as needed for three-month - Vertigo: The patient reports vertigo, currently managed with meclizine 12.5 mg, and is requesting to increase the dose to 25 mg as 12.5 is not enough I have placed a referral for to see Cardiology and geological specialist She is requesting us referral to Dermatology for a changing mole on her face close to left eye She already have a referral waiting in the system for pain management They happen calling her but could not get in touch with her for her back pain management I have given a telephone number to daughter so she can call in book the appointment herself Her daughter is her primary tractor trailer mechanic Medications Reviewed Patient Instructions - Follow up with pulmonary and cardiology specialists as scheduled. - Monitor blood pressure at home and record readings. - Take gabapentin as needed for muscle spasms, up to twice daily. - Increase meclizine dose to 25 mg if vertigo persists. - Avoid smoking to improve lung health. Orders: Referrals Dermatology Referral D22.30 - Melanocytic nevi of unspecified part of face Cardiology Referral R07.9 - Chest pain, unspecified Pulmonology Referral J90 - Pleural effusion, not elsewhere classified Medications: Changed From meclizine 12.5 mg PO DAILY vertigo To meclizine 25 mg PO DAILY 90 tabs 0RF vertigo From gabapentin 100 mg PO BID PRN 60 caps 0RF Neuropathy/sciatica To gabapentin 100 mg PO BID PRN 180 caps 0RF Neuropathy/sciatica 90 days
[2025-03-16 10:04] VITALS: BP 160/90; PULSE 70; TEMP 36.8; O2SAT 98; BMI 30.1
== END 2025-03-16 10:29 | disposition home or self-care (01) ==
LOC: HO.HMCC 09:53
PROVIDERS: PCP Internal Medicine; Visit Provider Internal Medicine
DX: E13.9 Other specified diabetes mellitus without complications (principal); Z09 Encounter for follow-up examination after completed treatment for conditions other than malignant neoplasm; J90 Pleural effusion, not elsewhere classified; R07.9 Chest pain, unspecified; E78.9 Disorder of lipoprotein metabolism, unspecified; I10 Essential (primary) hypertension; D22.30 Melanocytic nevi of unspecified part of face; M54.16 Radiculopathy, lumbar region; Z72.0 Tobacco use

== ENCOUNTER → 2025-03-16 09:52 | Outpatient (BNVA) | payer MEDICARE, MEDICAID, SELFPAY | PROVIDERS: PCP Internal Medicine; Visit Provider Internal Medicine | DX: Z09 Encounter for follow-up examination after completed treatment for conditions other than malignant neoplasm (principal); J90 Pleural effusion, not elsewhere classified; R07.9 Chest pain, unspecified; E78.9 Disorder of lipoprotein metabolism, unspecified; I10 Essential (primary) hypertension; D22.30 Melanocytic nevi of unspecified part of face; E13.9 Other specified diabetes mellitus without complications; M54.16 Radiculopathy, lumbar region; Z72.0 Tobacco use | CPT/HCPCS: 96127; 99212 ==

== ENCOUNTER 2025-07-02 13:56 | Outpatient (AMB) | payer MEDICARE, MEDICAID, SELFPAY ==
[2025-07-02 14:00] VITALS: BP 136/82; PULSE 76; BMI 31.1
--- NOTE | 2025-07-02 14:00 | A.OFFVIS_ITS ---
Vital Signs 07/02/25 14:00 Height 5 ft Weight 159 lb 2.78 oz BMI 31.1 BP 136/82 Blood Pressure Location Lt brachial Position Sitting Pulse 76 Pulse Source Monitor Intake Visit Reasons: [facility] followup Artifacts Conservator Required: Yes Artifacts Conservator Services: Artifacts Conservator Offered & Declined Accompanied by: Daughter Allergies oxycodone (OXYCODONE) Allergy (Intermediate, Verified 07/02/25 14:04) N/V, GI PAIN Medication List - Last Reconciled 07/02/25 by ARMANDO GageC acetaminophen ER 650 mg PO Q12H PRN 90 days aspirin 81 mg PO DAILY atorvastatin (Lipitor) 20 mg PO BEDTIME cholecalciferol (vitamin D3) 25 mcg PO DAILY 90 days cyclobenzaprine 10 mg PO BEDTIME PRN 90 days gabapentin 100 mg PO BID PRN 90 days ibuprofen 600 mg PO Q6H PRN 30 days levocetirizine 5 mg PO DAILY lisinopril 20 mg PO DAILY 90 days meclizine 25 mg PO DAILY omeprazole 20 mg PO DAILY paroxetine HCl 40 mg PO QAM 90 days HPI HPI [facility] followup: Details: Dana is a 64-year-old female with past medical history of hypertension, hyperlipidemia, diabetes, mild obesity, smoking who was recently admitted to [facility] with abdominal pain, treated for urethral calculus, sirs, hypertension. Her troponin was elevated to max of 161.6. EKG showed evidence of cardiac strain with nonspecific ST abnormality. Echocardiogram showed normal EF, no regional wall motion abnormality. She was seen by Dr. Barth in consult and now presents for post hospital follow-up. Today she reports she has been doing well since her hospital discharge in February. She has not issues with recurrent abdominal pain. She does not get chest discomfort at rest or with activity. She does have mild shortness of breath with exertion which is not new. She continues to smoke but is working on cutting down. No PND, orthopnea or edema. No lightheadedness, presyncope, syncope, palpitations. She does have various joint pains and issues which limit her physical abilities. She does live on the 4th floor and does need to climb stairs, with reports of leg fatigue. Compliant with meds. Daughter is present. Speaks [place]. [facility] Medical History Carpal tunnel syndrome on both sides Fall Elevated troponin level not due myocardial infarction Urinary incontinence in female Environmental allergies Arthrosis Chronic GERD Hypertension, essential Diabetes 1.5, managed as type 2 Depression, major, recurrent Lipid disorder Tobacco abuse Surgical History History of hysteroscopy History of open reduction and internal fixation (ORIF) procedure Hx of cholecystectomy Family History Father History of heart attack HTN (hypertension) CVD (cardiovascular disease) Diabetes mellitus Mother Alzheimer's disease Sister Breast cancer Sister Lung cancer Uterine cancer Sister Colon cancer Maternal Grandmother Colon cancer Social History Household Members: Children Housing: Apartment Do you presently have visiting nurse or other home services: Yes Alcohol intake: current Alcohol intake frequency: former alcohol drinker Comment: fell saturday, legs gave out Patient Tobacco Use Status: Current someday Tobacco user Tobacco use type: Cigarette Cigarette Packs Per Day: 5 Cigarettes Per Day: 5 Years Smoked: 45 e-Cigarette/Vaping Use: Never Used Substance Use Type: Marijuana service: No Current occupational status: retired Current occupation: [employer] handed Cognitive needs: No Hearing needs: No Vision needs: No Female Reproductive History Menstrual Age of Menarche: 11 Review of Systems Const All systems reviewed & are unremarkable except as noted in HPI and below Denies daytime sleepiness, Denies difficulty sleeping, Denies snoring, Denies stops breathing during sleep and Denies weakness Card Denies chest pain, Denies rapid heart rate, Denies irregular heart rhythm, Denies claudication, Denies leg edema, Denies lightheadedness, Denies palpitations, Denies dyspnea, Reports dyspnea on exertion, Denies orthopnea, Denies paroxysmal nocturnal dyspnea and Denies slow heart rate Resp Denies cough, Denies dyspnea, Reports dyspnea on exertion and Denies snoring GI Reports no additional complaints, Denies hematochezia, Denies change in stool character and Denies dyspepsia Musc Details: orthopedic issues Reports abnormal gait, Denies muscle weakness and Denies numbness Neuro Reports abnormal gait, Denies numbness and Denies weakness Endo Denies palpitations Physical Exam Vital Signs: Last Vital Signs Pulse 76 07/02/25 14:00 BP 136/82 07/02/25 14:00 BMI result Body Mass Index 31.1 Const General: cooperative, healthy appearing, comfortable and no acute distress Orientation/consciousness: patient oriented x3 Neck Neck: Yes normal visual inspection Resp Effort & Inspection: normal respiratory effort Auscultation: clear to auscultation bilaterally, no rales, no rhonchi and no wheezes Cardio Rate: regular rate Rhythm: regular rhythm Heart sounds: S1 normal heart sound present, S2 normal heart sound present, no gallops, no murmurs and no rubs Neuro General: patient oriented x3 Extrem General: Yes normal to inspection, No no pedal edema and No calf tenderness Psych Appearance: grossly normal Mental Status: mental status grossly normal Speech and movement: Normal speech and movement present Office Procedures EKG Details: Today, read by me, sinus rhythm, nonspecific ST abnormality, rate 76, QTC 405 milliseconds [id number], Complete Assessment & Plan Assessment & Plan (1) Elevated troponin: Code(s): R79.89 - Other specified abnormal findings of blood chemistry Category: Medical Plan: Troponin elevation in the setting of pain and elevated blood pressure with systolic over 200. Echocardiogram showed EF 65-70%, mild LVH, normal valves. A CT scan of the chest done 12/04/2020 showed moderate calcific atherosclerosis in the region of the proximal LAD. She has no anginal symptoms. EKG today is not ischemic. Will check a pharmacological nuclear stress test to evaluate for ischemia. She tells me she will not be able to walk on a treadmill due to knee and ankle issues. Finding of CAD, plan of care reviewed with her. Will have her continue aspirin 81 mg daily. Will start on atorvastatin with ideal LDL goal less than 70. Continue lisinopril for good blood pressure control. Signs and symptoms of angina discussed. Cardiology follow-up 3 months, sooner if needed. (2) Coronary atherosclerosis: Code(s): I25.10 - Atherosclerotic heart disease of [place] coronary artery without angina pectoris Category: Medical Plan: Findings CAD noted on CT scan 2020 as above. Now with elevated troponin, suggesting secondary event in the setting of pain, hypertension. Checking pharmacological nuclear stress test to assess for ischemia. (3) Hypertension, essential: Code(s): I10 - Essential (primary) hypertension Category: Medical Plan: Blood pressure goal less than 130/80. Near goal at present. Continue paras nopril. (4) Lipid disorder: Code(s): E78.9 - Disorder of lipoprotein metabolism, unspecified Category: Medical Plan: [place] LDL goal less than 70 in patient with CAD and diabetes. Labs done 09/25/2024 showed LDL 133. Will start on atorvastatin 20 mg daily. Plan for fasting lipids in 2 months. (5) Hospital discharge follow-up: Code(s): Z09 - Encounter for follow-up examination after completed treatment for conditions other than malignant neoplasm Category: Medical Plan: Discharge summary and cardiology consult reviewed Plan Time spent on chart review, documentation, interview and assessment Orders: Orders Liver Panel Today E78.9 - Disorder of lipoprotein metabolism, unspecified NM cardiolite stress test Today E78.9 - Disorder of lipoprotein metabolism, unspecified, I10 - Essential (primary) hypertension, R79.89 - Other specified abnormal findings of blood chemistry Lipid Panel Today E78.9 - Disorder of lipoprotein metabolism, unspecified CA lexiscan stress w savannah Today E78.9 - Disorder of lipoprotein metabolism, unspecified, I10 - Essential (primary) hypertension, R79.89 - Other specified abnormal findings of blood chemistry Medications: New atorvastatin (Lipitor) 20 mg PO BEDTIME 30 tabs 5RF Coding Level of Care Code Est Pt Level 4 (97469) Complex EM visit Add On G2211 Diagnoses Elevated troponin R79.89 Coronary atherosclerosis I25.10 Hypertension, essential I10 Lipid disorder E78.9 Hospital discharge follow-up Z09 CPT Codes EKG - CPT: [id number], Complete ([id number]) Time Spent (min) 32
== END 2025-07-02 14:32 | disposition home or self-care (01) ==
LOC: HO.HCS 13:57
PROVIDERS: PCP Internal Medicine; Visit Provider Nurse Practitioner Family
DX: R79.89 Other specified abnormal findings of blood chemistry (principal); I25.10 Atherosclerotic heart disease of native coronary artery without angina pectoris; I10 Essential (primary) hypertension; E78.9 Disorder of lipoprotein metabolism, unspecified; Z09 Encounter for follow-up examination after completed treatment for conditions other than malignant neoplasm
CPT/HCPCS: 93010; 99214; G2211

== ENCOUNTER → 2025-07-02 13:56 | Outpatient (BNVA) | payer MEDICARE, MEDICAID, SELFPAY | PROVIDERS: PCP Internal Medicine; Visit Provider Nurse Practitioner Family | DX: Z09 Encounter for follow-up examination after completed treatment for conditions other than malignant neoplasm (principal); R79.89 Other specified abnormal findings of blood chemistry; I25.10 Atherosclerotic heart disease of native coronary artery without angina pectoris; I10 Essential (primary) hypertension; E78.9 Disorder of lipoprotein metabolism, unspecified; R94.31 Abnormal electrocardiogram [ECG] [EKG] | CPT/HCPCS: 93005; 99212 ==

== ENCOUNTER 2025-09-02 14:09 | Outpatient (REF) | payer MEDICARE, MEDICAID, SELFPAY ==
[2025-09-03 11:19] LABS: Resp Syncy Virus RNA Qual PCR NEGATIVE (Negative); SARS COV2 PCR INHOUSE NEGATIVE (Negative)
== END 2025-09-02 14:10 | disposition home or self-care (01) ==
LOC: HO.LAB 14:09
PROVIDERS: PCP Internal Medicine; Visit Provider Nurse Practitioner Family
DX: J06.9 Acute upper respiratory infection, unspecified (principal); Z79.1 Long term (current) use of non-steroidal anti-inflammatories (NSAID); F17.210 Nicotine dependence, cigarettes, uncomplicated
CPT/HCPCS: 87637; 99212

== ENCOUNTER 2025-09-02 14:09 | Outpatient (AMB) | payer MEDICARE, MEDICAID, SELFPAY ==
[2025-09-02 15:08] VITALS: BP 118/76; PULSE 115; TEMP 36.3; O2SAT 98; BMI 29.1
--- NOTE | 2025-09-02 15:08 | MHC.OFFWIV ---
Intake Vital Signs 09/02/25 15:08 Height 5 ft Weight 149 lb BMI 29.1 BP 118/76 Blood Pressure Location Lt brachial Position Sitting Pulse 115 H Pulse Source Pulse Oximeter Temp 97.4 F Temp Source Oral Pulse Oximetry (%) 98 Oxygen Delivery Method Room Air Intake Visit Reasons: eP waekness vomiting diarrhea cough SOB Intake Note: pt presents with fever, SOB, weakness, vomiting diarrhea, dry coughing, sinus congestion x5 days Patient Tobacco Use Status: Current someday Tobacco user Allergies oxycodone (OXYCODONE) Allergy (Intermediate, Verified 09/02/25 15:13) N/V, GI PAIN Do you need a note to return to daycare/school/sports/work: No HPI HPI Comments History of Present Illness Details 64 y/o female patient presents to the walk-in clinic with complaints of subjective fevers, shortness of breath, generalized weakness, vomiting, diarrhea, dry cough, and sinus congestion for the past 5 days. Patient reports symptoms have been persistent with minimal relief despite use of OTC medications. She endorses decreased oral intake due to nausea and vomiting. Denies chest pain, hemoptysis, syncope, abdominal pain, hematochezia, melena, dysuria, or rash. No known sick contacts reported. Vaccination status not documented. [facility] Medical History (Updated 09/02/25 @ 15:55 by Valerie Harden NP) Acute respiratory disease Carpal tunnel syndrome on both sides Fall Elevated troponin level not due myocardial infarction Urinary incontinence in female Environmental allergies Arthrosis Chronic GERD Hypertension, essential Diabetes 1.5, managed as type 2 Depression, major, recurrent Lipid disorder Tobacco abuse Surgical History History of hysteroscopy History of open reduction and internal fixation (ORIF) procedure Hx of cholecystectomy Family History Father History of heart attack HTN (hypertension) CVD (cardiovascular disease) Diabetes mellitus Mother Alzheimer's disease Sister Breast cancer Sister Lung cancer Uterine cancer Sister Colon cancer Maternal Grandmother Colon cancer Social History Household Members: Children Housing: Apartment Do you presently have visiting nurse or other home services: Yes Alcohol intake: current Alcohol intake frequency: former alcohol drinker Comment: fell saturday, legs gave out Patient Tobacco Use Status: Current someday Tobacco user Tobacco use type: Cigarette Cigarette Packs Per Day: 5 Cigarettes Per Day: 5 Years Smoked: 45 e-Cigarette/Vaping Use: Never Used Substance Use Type: Marijuana service: No Current occupational status: retired Current occupation: R[employer] handed Cognitive needs: No Hearing needs: No Vision needs: No Female Reproductive History Menstrual Age of Menarche: 11 Review of Systems Const All systems reviewed & are unremarkable except as noted in HPI and below Physical Exam Vital Signs: Last Vital Signs Temp 97.4 F 09/02/25 15:08 Pulse 115 H 09/02/25 15:08 BP 118/76 09/02/25 15:08 Pulse Ox 98 09/02/25 15:08 Oxygen Delivery Method Room Air 09/02/25 15:08 BMI result Body Mass Index 29.1 Const General: no acute distress; No comfortable Nutritional Appearance: obese Orientation/consciousness: patient oriented x3 HEENT Head: Yes normocephalic Ears: external ears normal and TM abnormal with fluid behind the TM bilateral General nose exam: Nasal discharge present Face and sinus: Yes sinuses nontender Mouth: moist mucous membranes Throat: Yes uvula midline Resp Effort & Inspection: normal respiratory effort and able to speak in complete sentences Auscultation: clear to auscultation bilaterally, no crackles, no rales, no rhonchi and no wheezes Cardio Heart sounds: S1 normal heart sound present and S2 normal heart sound present Neuro General: patient oriented x3 Assessment & Plan Assessment & Plan (1) Acute respiratory disease: Code(s): J06.9 - Acute upper respiratory infection, unspecified Plan: Rapid COVID-19 / Influenza / RSV testing. Encourage aggressive oral hydration with electrolyte solutions Acetaminophen PRN fever/body aches Saline nasal spray and humidifier for congestion. Discussed importance of hydration and rest Reviewed warning signs including worsening SOB, inability to tolerate PO intake, persistent fevers, chest pain, confusion, or decreased urine output. Orders: Orders SARS-CoV2/FLU/RSV Today J06.9 - Acute upper respiratory infection, unspecified Medications: New lidocaine 4% 1 patch topical BID PRN 30 ea 0RF pain benzonatate 200 mg (2 x 100 mg) PO BID 60 caps 0RF J06.9 - Acute upper respiratory infection, unspecified Refilled ibuprofen 600 mg PO Q6H PRN 30 tabs 0RF pain 30 days Coding Level of Care Code Est Pt Level 4 (81447) Diagnoses Acute respiratory disease J06.9 Time Spent (min) 20
== END 2025-09-02 15:58 | disposition home or self-care (01) ==
PROVIDERS: PCP Internal Medicine; Visit Provider Nurse Practitioner Family
DX: J06.9 Acute upper respiratory infection, unspecified (principal)